=== PATIENT | male | born 1960 | race Caucasian/White ===

== ENCOUNTER 2018-12-26 08:56 | Day surgery (SDC) | payer MEDICAID, SELFPAY ==
[2018-12-26 09:09] VITALS: BP 125/90; PULSE 85; RESP 16; TEMP 35.7; O2SAT 96
[2018-12-26] MEDS: Bupivacaine 0.25% Pres-Free 30 ML VIAL ×2 (09:37→11:12)
[2018-12-26] MEDS: Bupivacaine 0.25% Pres-Free 10 ML VIAL (09:37)
[2018-12-26] MEDS: Lactated Ringers 1,000 ML 80 ML IV (09:43)
--- NOTE | 2018-12-26 11:14 | W.PM.OP ---
Date of service: 12/26/18 Time of Service: 11:14 Operative Note DATE OF PROCEDURE: 12/26/18 PRE-OP DIAGNOSIS: umbilical hernia POST-OP DIAGNOSIS: same PROCEDURE: open herniorrhaphy w/ mesh SURGEON: Cheryl Mcdaniel ANESTHESIA: GETA ESTIMATED BLOOD LOSS: 2 PATHOLOGY: none sent TOURNIQUET TIME: 0 COMPLICATIONS: None Patient was transported to: PACU Patient's condition: stable Implants: bard mesh hernia patch Indications: pain Findings: see op report Procedure Description: dictated
[2018-12-26 11:21] VITALS: BP 101/69; PULSE 84; RESP 13; TEMP 36.7; O2SAT 95
--- NOTE | 2018-12-26 11:24 | W.PM.DSUDISC ---
Discharge Plan Disposition Patient Disposition: HOME Condition: Good Discharge Details Attending Provider: Cheryl Mcdaniel Primary Care Provider: Brandi Jacob Home Meds and New Rx's Prescriptions: New hydrocodone-acetaminophen 5-325 mg tablet 1 tab PO Q4H PRN PRNQty: 15 RF: 0 ibuprofen 800 mg tablet 800 mg PO TID PRN (Reason: pain) Qty: 60 RF: 0 Continued omeprazole 10 mg capsule,delayed release(DR/EC) 10 mg PO DAILY RF: 0 lisinopril 20 mg tablet 20 mg PO DAILY RF: 0 zolpidem 6.25 MG tablet,ext release multiphase 6.25 mg PO PRN RF: 0 tamsulosin 0.4 MG capsule 0.4 mg PO DAILY RF: 0 Discontinued ibuprofen 200 mg tablet 200 mg PO QID PRNRF: 0 acetaminophen 500 mg tablet 500 mg PO Q6H PRNRF: 0 Discharge Instructions Additional Instructions: Dr. Mcdaniel HERNIA REPAIR ? POSTOPERATIVE INSTRUCTIONS ? The MESH surgery for hernia repair allows the patient to return to normal activities at an early date. Patients who have this type of surgery can usually be expected to return to work within two weeks and have minimal amounts of discomfort. ? ACTIVITY: The day of surgery should be spent resting. However, you can be up for short periods of time, I.E., going to the bathroom or kitchen. Avoid lifting or straining. On the day following surgery, you can be up and about as desired. ? LIFTING: Restrict your lifting to no more than five (5) pounds for the first week following surgery. ? DIET: There are no dietary restrictions following surgery. However, you may want to start with small amounts of liquids to avoid nausea the day of surgery. ? INCISION CARE: A dressing covers your incision. You will notice strips of tape covering the wound ? DO NOT REMOVE THESE STRIPS - they help the wound to heal. After 24 hours you may shower and apply a clean dressing over the strips of tape. The dressing may be replaced as necessary. An ice bag may be applied to the incision for 72 hours following surgery. ? SIGNS OF INFECTION: It is not unusual to have some black and blue discoloration of the skin around the incision. It will slowly disappear. If you have any increased redness, drainage, fever (above 100 degrees), please contact your doctor for an examination. ? DISCOMFORT: You may expect to have some mild discomfort at the incision sight. If severe pain develops you should contact your doctor for further instructions. ? URINATION: Patients who have surgery occasionally have problems urinating. If you experience problems and are not able to urinate within 6 hours following your surgery, please call your doctor immediately or go to your nearest Emergency Room for evaluation. ? DRIVING: NO driving for five (5) days after surgery ? MEDICATIONS: You have been given a prescription for pain. If you are taking pain medication, follow the instructions on the label and do not drive. Some patients have conditions that require antibiotics, please follow the instructions on the label and take all of the antibiotics. Pain medications can make you very constipated. Make sure you are moving your bowels daily. If not, take Miralax, milk of magnesia or magnesium citrate. ? REPORT: Unusual swelling, severe pain, unresolved nausea, signs of infection, or difficulty in urination to your surgeon. Follow up in clinic with Dr. Mcdaniel in 1-2 weeks. Stand Alone Forms: DSU Post op Fletcher, Humberto Pascal (DSU) Activity:: no lifting over 5-10 #'s x2-3 wks Remove Dressings/Wound Care:: 24 hours Shower/Bathe:: 24 hours Diet:: take MOM in am and prn if no BM daily DS: Diagnosis Discharge Diagnosis (1) Umbilical hernia without obstruction or gangrene: Start date: 12/26/18 Start time: 11:25 Status: Acute
[2018-12-26 11:26] VITALS: BP 93/74; PULSE 83; RESP 14; TEMP 36.7; O2SAT 96
[2018-12-26 11:31] VITALS: BP 114/82; PULSE 87; RESP 14; TEMP 36.7; O2SAT 98
--- NOTE | 2018-12-26 11:34 | PDOC.DSDIS_ITS ---
Discharge Plan Disposition Patient Disposition: HOME Condition: Good Discharge Details Attending Provider: Cheryl Mcdaniel Primary Care Provider: Brandi Jacob Home Meds and New Rx's Prescriptions: New ibuprofen 800 mg tablet 800 mg PO TID PRN (Reason: pain) Qty: 60 RF: 0 hydrocodone-acetaminophen [[place]] 5-325 mg tablet 1 tab PO Q4H PRN (Reason: pain) Qty: 14 RF: 0 Continued omeprazole 10 mg capsule,delayed release(DR/EC) 10 mg PO DAILY RF: 0 lisinopril 20 mg tablet 20 mg PO DAILY RF: 0 zolpidem 6.25 MG tablet,ext release multiphase 6.25 mg PO PRN RF: 0 tamsulosin 0.4 MG capsule 0.4 mg PO DAILY RF: 0 Discontinued ibuprofen 200 mg tablet 200 mg PO QID PRNRF: 0 acetaminophen 500 mg tablet 500 mg PO Q6H PRNRF: 0 Discharge Instructions Additional Instructions: Dr. Mcdaniel HERNIA REPAIR ? POSTOPERATIVE INSTRUCTIONS ? The MESH surgery for hernia repair allows the patient to return to normal activities at an early date. Patients who have this type of surgery can usually be expected to return to work within two weeks and have minimal amounts of discomfort. ? ACTIVITY: The day of surgery should be spent resting. However, you can be up for short periods of time, I.E., going to the bathroom or kitchen. Avoid lifting or straining. On the day following surgery, you can be up and about as desired. ? LIFTING: Restrict your lifting to no more than five (5) pounds for the first week following surgery. ? DIET: There are no dietary restrictions following surgery. However, you may want to start with small amounts of liquids to avoid nausea the day of surgery. ? INCISION CARE: A dressing covers your incision. You will notice strips of tape covering the wound ? DO NOT REMOVE THESE STRIPS - they help the wound to heal. After 24 hours you may shower and apply a clean dressing over the strips of tape. The dressing may be replaced as necessary. An ice bag may be applied to the incision for 72 hours following surgery. ? SIGNS OF INFECTION: It is not unusual to have some black and blue discoloration of the skin around the incision. It will slowly disappear. If you have any increased redness, drainage, fever (above 100 degrees), please contact your doctor for an examination. ? DISCOMFORT: You may expect to have some mild discomfort at the incision sight. If severe pain develops you should contact your doctor for further instructions. ? URINATION: Patients who have surgery occasionally have problems urinating. If you experience problems and are not able to urinate within 6 hours following your surgery, please call your doctor immediately or go to your nearest Emergency Room for evaluation. ? DRIVING: NO driving for five (5) days after surgery ? MEDICATIONS: You have been given a prescription for pain. If you are taking pain medication, follow the instructions on the label and do not drive. Some patients have conditions that require antibiotics, please follow the instructions on the label and take all of the antibiotics. Pain medications can make you very constipated. Make sure you are moving your bowels daily. If not, take Miralax, milk of magnesia or magnesium citrate. ? REPORT: Unusual swelling, severe pain, unresolved nausea, signs of infection, or difficulty in urination to your surgeon. Follow up in clinic with Dr. Mcdaniel in 1-2 weeks. Stand Alone Forms: DSU Post op Fletcher, Humberto Pascal (DSU) Activity:: no lifting over 5-10 #'s x2-3 wks Remove Dressings/Wound Care:: 24 hours Shower/Bathe:: 24 hours Diet:: take MOM in am and prn if no BM daily DS: Diagnosis Discharge Diagnosis (1) Umbilical hernia without obstruction or gangrene: Status: Acute
[2018-12-26] MEDS: HYDROcodone 5/Acetaminophen 325 TAB PO (12:08)
[2018-12-26 12:25] VITALS: BP 122/75; PULSE 84; RESP 18; TEMP 35.7; O2SAT 97
--- NOTE | 2018-12-26 18:24 | ROE_ITS ---
DATE OF PROCEDURE: December 26, 2018 PREOPERATIVE DIAGNOSIS: Umbilical hernia. POSTOPERATIVE DIAGNOSIS: Umbilical hernia. PROCEDURE: Umbilical herniorrhaphy with mesh. SURGEON: Cheryl Mcdaniel D.O. GALVANOMETER ASSEMBLER: Cheryl Haynes PA-C ANESTHESIA: General. ESTIMATED BLOOD LOSS: <10 cc SPECIMEN: No specimens sent for Pathology. COMPLICATIONS: The patient tolerated the procedure well without complication. INDICATIONS: Mr. Doyle is a 58-year-old male seen at the request of his PCP and is here today for umbilical hernia repair. He has failed outpatient conservative medical management. Informed consent was obtained, explaining the risks and benefits of the procedure including, but not limited to, bleeding, infection, pneumonia, blood clots, chronic pain and chronic numbness, reoccurrence, reaction to the mesh necessitating removal, damage to bowel or blood vessels, complications from the anesthesia, and other unforetold complications. The patient was marked in Preop. PROCEDURE: The patient was brought to the operative room suite and placed in supine position. Anesthesia was administered per the Department of Anesthesia. He did receive preoperative antibiotics. Bilateral TAP blocks were done by Anesthesia. The area was prepped and draped in the usual sterile fashion using a ChloraPrep scrub solution. A time-out was done. Ten cc's of 0.25% Marcaine were infused for local anesthetization at the surgical site. A #12 blade was used to make a 2-inch incision below the umbilicus. Electrocautery was used to provide hemostasis and dissect down through the fatty tissues to the umbilicus. The umbilical skin was the dissected off of the hernia sac using sharp dissection. [employer] were used to provide visualization. The fascial edges were freed up. A finger was placed and swept into the abdomen. There was a small area of omentum that contained an umbilical sac. This was excised and was not sent for pathology. A Bard mesh patch, 6.4 cm, was placed in the defect. This was oversewn with five stitches of #2-0 Prolene. This did incorporate the mesh. The wound was then copiously irrigated. The deep tissue was approximated with #2-0 Vicryl and the skin was closed with #4-0 Monocryl running in subcuticular fashion. Steri-Strips and sterile dressings were applied. The patient tolerated the procedure well without complications. He was given instructions in wound care, activity, and warning signs. He was sent home with a prescription for ibuprofen and for [place], #14. He will follow up in the office in one to two weeks. If he has any questions or concerned he can contact the office. Thank you for allowing me to participate in the care of this patient. cc: Brandi Jacob N.P.
== END 2018-12-26 12:45 | disposition home or self-care (01) ==
PROVIDERS: PCP Nurse Practitioner Family; Visit Provider Surgery
PROC: (CPT 49585; principal; 2018-12-26 10:30)
DX: K42.9 Umbilical hernia without obstruction or gangrene (principal); K21.9 Gastro-esophageal reflux disease without esophagitis; I10 Essential (primary) hypertension
CPT/HCPCS: 49585 ×2; 76942; C1781; J0690; J1100; J1885; J2250; J2405

== ENCOUNTER 2019-07-28 09:34 | Outpatient (REF) | payer MEDICAID, SELFPAY ==
[2019-07-28 12:26] LABS: Albumin 3.7 g/dL (3.4-5.0); Alkaline Phosphatase 96 U/L (46-116); BUN 13 mg/dL (7-18); Bilirubin, Total 0.4 mg/dL (0.2-1.0); CO2 22.7 mmol/L (21.0-32.0); CREATININE 0.91 mg/dL (0.70-1.30); Calcium 9.1 mg/dL (8.5-10.1); Chloride 102 mmol/L (98-107); Glucose 116 mg/dL (70-100); Potassium 3.7 mmol/L (3.5-5.1); Sodium 139 mmol/L (136-145); Total Protein 6.8 g/dL (6.4-8.2)
[2019-07-28 12:27] LABS: ALT 23 U/L (16-63); AST 21 U/L (15-37); Anion Gap 14.3 mmol/L (3-11)
== END 2019-07-28 09:54 ==
LOC: NCHCN 09:34
PROVIDERS: PCP Nurse Practitioner Family; Visit Provider Nurse Practitioner Family
DX: I10 Essential (primary) hypertension (principal)
CPT/HCPCS: 80053

== ENCOUNTER 2019-08-17 13:49 | Emergency (ER) | payer MEDICAID, SELFPAY ==
[2019-08-17] VITALS (14 sets, daily range): BP systolic 140–172; BP diastolic 93–120; PULSE 74–119; RESP 16–18; TEMP 36.8; O2SAT 93–98
--- NOTE | 2019-08-17 14:29 | DI.RAD_ITS ---
EXAM: XR RIBS LT W PA LAT CHEST INDICATION: trauma, left rib pain. COMPARISON: RIGHT RIBS PA CXR-3 VIEWS from 12/12/2012 TECHNIQUE: 2D digital imaging was performed. FINDINGS: Heart size is normal. The aorta is tortuous. There are old right rib fractures. Two views of the left ribs were performed. No acute fracture is seen. The lungs appear clear. There is no of pneumo thorax. IMPRESSION: No acute abnormality.
[2019-08-17 14:44] LABS: Abs Immature Grans 0.04 k/cumm (0.0-0.09); Absolute Basophil Count 0.04 k/cumm (0.0-0.2); Absolute Eosinophil Count 0.08 k/cumm (0.0-0.7); Absolute Monocyte Count 0.84 k/cumm (0.11-0.7); Absolute Neutrophil Count 7.02 k/cumm (1.2-6.7); Basophils % 0.4; Eosinophils % 0.9; HCT 41.7 % (40.0-50.0); HGB 14.1 g/dL (13.5-17.5); Immature Grans % 0.4; Lymphocytes % 13.9; Mean Corp. HGB Concentration 33.8 g/dL (32.0-36.0); Mean Corpuscular Hemoglobin 33.4 pg (27.0-33.0); Mean Corpuscular Volume 98.8 fL (80-95); Mean Platelet Volume 8.1 fL (8.0-11.0); Neutrophils % 75.4; Platelet Count 332 x1000/uL (130-400); RBC 4.22 m/cumm (4.50-6.00); RBC Distribution Width 12.2 % (11.8-14.1); White Blood Cell Count 9.32 k/cumm (4.4-10.8)
--- NOTE | 2019-08-17 14:45 | ED.GENADUL_ITS ---
Discharge Plan Disposition Patient Disposition: HOME Discharge Details Chief Complaint: Chest/Rib Clinical Impression: Dental infection, Closed rib fracture, Lytic lesion of bone on x-ray Primary Care Provider: Brandi Jacob ED Provider: Kyle Watt Home Meds and New Rx's Prescriptions: New amoxicillin-pot clavulanate [Augmentin] 875-125 mg tablet 1 tab PO BID Qty: 19 RF: 0 oxycodone 5 mg capsule 5 mg PO BID PRN (Reason: severe pain) Qty: 5 RF: 0 Continued omeprazole 10 mg capsule,delayed release(DR/EC) 10 mg PO DAILY RF: 0 lisinopril 20 mg tablet 20 mg PO DAILY RF: 0 zolpidem 6.25 MG tablet,ext release multiphase 6.25 mg PO PRN RF: 0 tamsulosin 0.4 MG capsule 0.4 mg PO DAILY RF: 0 acetaminophen [Tylenol Extra Strength] 500 mg Tablet 1,000 mg PO QID RF: 0 ibuprofen 800 mg tablet 800 mg PO TID PRN (Reason: pain) Qty: 60 RF: 0 Discharge Instructions Instructions: Rib Fracture (ED) Additional Instructions: You have a dental infection. Please take antibiotics as prescribed. Please contact your primary care physician to arrange follow-up. Be sure to discuss lytic lesion noted on CT. An official interpretation of your CT is pending. Patient would not discuss this with your doctor. Call tomorrow to arrange timely follow-up. Please contact your dentist tomorrow to arrange timely follow-up. You likely will need tooth extraction. Please take ibuprofen over the counter. Take 600 - 800mg by mouth every 6-8 hours as needed for pain. Please take acetaminophen (tylenol) - 650mg every 6 hours by mouth as needed for pain. Take oxycodone as prescribed only for severe pain. Do not take this medication for mild or moderate pain. Use [id number] lidocaine patch for your rib fracture. Dose according to label. Return to the ER for any worsening or new concerning symptoms. Referrals: Brandi Jacob [Primary Care Provider] - Discharge Data Discharge Date/Time-TO BE ENTERED AT DEPARTURE: 08/17/19 19:45 Medical Decision Making <Kyle Watt MD - Last Filed: 08/23/19 15:22> 16:00 -- Care signed out by Dr. Regina Watt with plan to follow-up CT of the abdomen pelvis to assess for acute traumatic injury and CT of the face to assess for deeper space infection of anterior maxilla. Labs reviewed: Patient does have mild anion gap of 13.4. He is receiving IV fluid bolus. CT of the abdomen pelvis was interpreted by radiology: Left 11th rib fracture acute. Right inguinal fat-containing hernia. CT of the face was interpreted by radiology: 9 mm lytic lesion in the right paracentral anterior maxilla. There is cortical breakthrough. Infection or malignancy is not excluded. The former diagnosis is more likely. There is also note of sclerotic lesion measuring up to 7 mm in frontal bone. Given patient's recent history of intermittent inflammation of his anterior upper mouth and gumline over the past few weeks and much worse over the past 2 days and now radiating up to his nose, I am concerned about acute infectious process. I will treat with Unasyn 3 g. I have called [facility] and requested consultation with [facility]. Awaiting call back. Images were sent for review. 19:08 -- I spoke with Dr. Francisco, I discussed ED presentation and course, he reviewed CT and recommends oral antibiotic trial and outpatient follow-up with local dentist. Disposition decision was made weighing the risks and benefits of hospitalization versus outpatient treatment, the risk for further decompensation, and the patient's wishes. The patient was stable and requested discharge. Prior to discharge, my usual and customary return precautions were reviewed with the patient - this included follow-up instructions and reason to return to the emergency department if condition worsens, does not improve as expected, or other new concerns arise. <Regina Watt MD - Last Filed: 08/24/19 15:53> Eduardo Doyle is a 59-year-old man with a history of hypertension who presented to the emergency department with left flank pain/left lower rib pain after traumatic injury, also with swelling and pain under his upper lip. On exam patient is well and nontoxic-appearing. Benign cardiopulmonary exam. Benign abdominal exam. Left lower lateral rib and left flank tenderness with mild ecchymosis over the left flank, also with edema at the central upper alveolar ridge. Concern for facial infection of unknown extension, also concern for traumatic injury to the abdomen/retroperitoneal space, possible rib fractures.. Plan for screening labs, CT face, CT abdomen/pelvis, CXR. Exam/history is not consistent with acute emergent life-threatening injury of the thoracic vasculature, significant injury to the thoracic spine, PE, sepsis, impending airway compromise. Labs reviewed, nondiagnostic. Chest x-ray negative. Patient signed out to Dr. Watt at time of shift change with CT face, CT abdomen pelvis pending. Medical Records Medical records reviewed: Yes I reviewed the patient's medical records. Imaging Data Radiologic Study: Attestation: I personally reviewed and interpreted this imaging study as follows: Radiologist's impression: EXAM: XR RIBS LT W PA LAT CHEST INDICATION: trauma, left rib pain. COMPARISON: RIGHT RIBS PA CXR-3 VIEWS from 12/12/2012 TECHNIQUE: 2D digital imaging was performed. FINDINGS: Heart size is normal. The aorta is tortuous. There are old right rib fractures. Two views of the left ribs were performed. No acute fracture is seen. The lungs appear clear. There is no of pneumothorax. IMPRESSION: No acute abnormality. Lab Data Lab results reviewed: Yes I reviewed the patient's lab results. Labs: Laboratory Tests Range/Units 08/17/19 08/17/19 14:32 14:32 WBC (4.4-10.8) k/cumm 9.32 RBC (4.50-6.00) m/cumm 4.22 L Hgb (13.5-17.5) g/dL 14.1 Hct (40.0-50.0) % 41.7 MCV (80-95) fL 98.8 H MCH (27.0-33.0) pg 33.4 H MCHC (32.0-36.0) g/dL 33.8 RDW (11.8-14.1) % 12.2 Plt Count (130-400) x1000/uL 332 MPV (8.0-11.0) fL 8.1 Immature Gran % 0.4 Neutrophils % 75.4 Lymphocytes % 13.9 Monocytes % 9.0 Eosinophils % 0.9 Basophils % 0.4 Absolute Neutrophils (1.2-6.7) k/cumm 7.02 H Absolute Lymphocytes (1.2-3.4) k/cumm 1.30 Absolute Monocytes (0.11-0.7) k/cumm 0.84 H Absolute Eosinophils (0.0-0.7) k/cumm 0.08 Absolute Basophils (0.0-0.2) k/cumm 0.04 Sodium (136-145) mmol/L 138 Potassium (3.5-5.1) mmol/L 3.9 Chloride (98-107) mmol/L 102 Carbon Dioxide (21.0-32.0) mmol/L 22.6 Anion Gap (3-11) mmol/L 13.4 H BUN (7-18) mg/dL 10 Creatinine (0.70-1.30) mg/dL 0.79 Estimated GFR/1.73 m2 (mL/min/1.73m2) >= 60.00 Glucose (70-100) mg/dL 97 Calcium (8.5-10.1) mg/dL 9.2 Total Bilirubin (0.2-1.0) mg/dL 0.5 AST (15-37) U/L 33 ALT (16-63) U/L 39 Alkaline Phosphatase (46-116) U/L 112 Total Protein (6.4-8.2) g/dL 7.6 Albumin (3.4-5.0) g/dL 3.7 HPI <Kyle Watt MD - Last Filed: 08/23/19 15:22> General Date/Time Provider Initiated Documentation: 08/17/19 14:04 . Related Data Home Medications Medication Instructions Recorded Confirmed tamsulosin 0.4 mg PO DAILY 12/12/12 08/17/19 zolpidem 6.25 mg PO PRN 12/07/15 08/17/19 lisinopril 20 mg tablet 20 mg PO DAILY 12/18/18 08/17/19 omeprazole 10 mg capsule,delayed 10 mg PO DAILY 12/18/18 08/17/19 release ibuprofen 800 mg PO TID PRN #60 tab 12/26/18 08/17/19 acetaminophen [Tylenol Extra 1,000 mg PO QID 08/17/19 08/17/19 Strength] amoxicillin-pot clavulanate 1 tab PO BID #19 tab 08/17/19 [Augmentin] oxycodone 5 mg PO BID PRN #5 cap 08/17/19 Previous Rx's Medication Instructions Recorded ibuprofen 800 mg PO TID PRN #60 tab 12/26/18 amoxicillin-pot clavulanate 1 tab PO BID #19 tab 08/17/19 [Augmentin] oxycodone 5 mg PO BID PRN #5 cap 08/17/19 Allergies Allergy/AdvReac Type Severity Reaction Status Date / Time No Known Allergies Allergy Verified 08/17/19 13:56 <Regina Watt MD - Last Filed: 08/24/19 15:53> General Mode of arrival: ambulatory . Limitations to Documentation: no limitations . Information obtained by: patient, RN notes reviewed and old records reviewed . HPI Narrative: Eduardo Doyle is a 59-year-old man with history of hypertension, arthritis presenting to the emergency department with mouth/facial pain and left-sided rib/flank pain. Patient reports that 3 days ago he slipped on wet porch stairs, fell onto the stairs landing on his left side. He did not hit his head, did not lose consciousness. Patient reports he has had pain in his left ribs and left flank since the fall, and has developed some bruising over his left flank. He denies any other injuries or pain from the fall. Patient also reports that he typically wears a bridge across upper front teeth, but the bridge has not been fitting properly and he has been gluing the bridge in place himself. Patient reports that he has had irritation and pain under his upper lip, with pain now progressing into his central face and under his nose. He has had no sores in his mouth. He denies difficulty swallowing or swelling in his mouth. Patient denies any other pain, fevers, cough, vomiting, diarrhea, numbness, weakness. Patient reports that he feels somewhat short of breath secondary to pain in his left lower lateral rib/flank when he takes a deep christos th. Has been eating and drinking as usual. General Stated Complaint: Chest/Rib ALESSANDRO: 3 <Regina Watt MD - Last Filed: 08/24/19 15:53> Narrative: Constitutional: denies fevers Eyes: denies eye pain ENT: denies sore throat, reports mouth pain Cardiovascular: denies edema, reports left lower lateral rib pain (denies other chest pain) Respiratory: denies SOB, cough GI: denies abdominal pain, vomiting, diarrhea : Reports flank pain MSK: denies back pain, neck pain, arthralgias, myalgias Skin: denies rash Neuro: denies headaches, numbness, weakness PFSH <Kyel Watt MD - Last Filed: 08/23/19 15:22> Medical History Benign prostatic hypertrophy without urinary obstruction 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) Diverticulosis (Chronic) GERD (gastroesophageal reflux disease) (Chronic) Hernia, umbilical (Resolved) repaired 12/26/18, Dr Cheryl Mcdaniel, [facility] Herpes labialis (Chronic) cold sores HTN (hypertension) (Chronic) Right shoulder pain (Chronic) Umbilical hernia without obstruction or gangrene (Acute) Surgical History Ankle surgery Arthroplasty of knee Right knee Rotator Cuff Repair Social History Smoking/Tobacco Use Status: Former Tobacco Use Alcohol Intake: former Drug use: Never Details: no alcohol or tobacco for 20 years Do you feel safe at home: Yes Do you feel safe in your relationship?: Yes <Regina Watt MD - Last Filed: 08/24/19 15:53> Narrative Exam Narrative: Constitutional: well and [id number], pleasant, conversing normally HENT: head atraumatic/normocephalic/normal inspection, mucous membranes moist, edema of the central upper alveolar ridge without discharge or induration, poor dentition, no other intraoral lesion, tenderness of the central maxilla without overlying skin changes of the upper lip or nose Eyes: conjunctiva normal, sclera normal, pupils 3mm b/l Neck: no stridor, normal ROM, trachea midline Chest: normal inspection anteriorly, tenderness palpation over left lower lateral ribs without crepitus or deformity Resp: normal work of breathing, LCTAB Cardio: normal rate, normal rhythm, no murmur appreciated GI: abdomen soft, non-tender, non-distended, mild ecchymosis over left flank, mild CVA tenderness palpation on the left Back: normal inspection, no rash Skin: warm, dry, normal color, no rash Neuro: alert, not altered, grossly non-focal, normal tone Ext: no edema, moving all extremities equally Psych: normal mood, normal affect, normal behavior <Regina Watt MD - Last Filed: 08/24/19 15:53> Vital Signs Vital signs: Vital Signs Temperature 36.8 C 08/17/19 13:51 Pulse 112 H 08/17/19 13:51 Respiratory Rate 16 08/17/19 13:51 Blood Pressure 140/93 H 08/17/19 13:51 Pulse Oximetry 97 08/17/19 13:51 Temperature 36.8 C 08/17/19 13:51 Temperature Source Skin 08/17/19 13:51 Pulse 112 H 08/17/19 13:51 Respiratory Rate 16 08/17/19 13:51 Respiratory Effort 08/17/19 13:59 Respiratory Depth Normal 08/17/19 13:59 Respiratory Pattern Normal 08/17/19 13:59 Blood Pressure 140/93 H 08/17/19 13:51 Blood Pressure Position Sitting 08/17/19 13:51 Pulse Oximetry 97 08/17/19 13:51 Oxygen Delivery Method Room Air 08/17/19 13:51 Oxygen Flow Rate 0 08/17/19 13:51 Pain Level 10 08/17/19 13:51 Comment 08/17/19 13:51 Sign Out <Kyle Watt MD - Last Filed: 08/23/19 15:22> Sign Out Data: Sign Out Comment: Patient signed out to Dr. Watt at time of shift change with imaging, reassessment pending Last updated by Regina Watt MD at 08/17/19 16:02
[2019-08-17 15:01] LABS: ALT 39 U/L (16-63); AST 33 U/L (15-37); Albumin 3.7 g/dL (3.4-5.0); Alkaline Phosphatase 112 U/L (46-116); Anion Gap 13.4 mmol/L (3-11); BUN 10 mg/dL (7-18); Bilirubin, Total 0.5 mg/dL (0.2-1.0); CO2 22.6 mmol/L (21.0-32.0); CREATININE 0.79 mg/dL (0.70-1.30); Calcium 9.2 mg/dL (8.5-10.1); Chloride 102 mmol/L (98-107); Glucose 97 mg/dL (70-100); Potassium 3.9 mmol/L (3.5-5.1); Sodium 138 mmol/L (136-145); Total Protein 7.6 g/dL (6.4-8.2)
[2019-08-17] MEDS: Normal Saline 1,000 ML 1000 ML IV (15:41)
--- NOTE | 2019-08-17 16:33 | DI.CT_ITS ---
EXAM: CT FACIAL W CLINICAL HISTORY: maxillary infection TECHNIQUE: There is residual IV contrast related to CT abdomen and pelvis. COMPARISON: No exams were available for comparison FINDINGS: No fracture is identified. There is a lucency in the right anterior maxilla around the canine tooth which may represent a small periapical abscess. The sinuses appear clear. The orbits are unremarkable . There are a few smoothly marginated sclerotic areas in the bones likely representing bone islands. The mastoid air cells appear clear. IMPRESSION: Periapical lucency around the right maxillary canine tooth. No acute fracture.
--- NOTE | 2019-08-17 16:33 | DI.CT_ITS ---
EXAM: CT ABDOMEN PELVIS W CLINICAL HISTORY: trauma, left flank pain TECHNIQUE: 100 cc Omnipaque 350 IV. COMPARISON: No exams were available for comparison FINDINGS: There is an acute fracture of the lateral left 11th rib. There is no evidence of pneumothorax, splen ic or renal injury. There are old right rib fractures. Liver shows mild fatty infiltration. The ga llbladder, pancreas, adrenals and bowel are unremarkable. There is symmetric perfusion and excretion by both kidneys. The bladder is unremarkable. There is a fatty containing right inguinal hernia wh ich also shows a small amount of fluid. No spine or pelvic fractures are seen. IMPRESSION: Left 11th rib fracture. No additional acute abnormalities are identified.
[2019-08-17] MEDS: Omnipaque 350 MG/ML 100 ML BTL IJ (16:34)
[2019-08-17] MEDS: Omnipaque 350 MG/ML 50 ML BTL IJ (16:35)
--- NOTE | 2019-08-17 16:53 | DI.VRAD_ITS ---
PROCEDURE INFORMATION: Exam: CT Abdomen And Pelvis With Contrast Exam date and time: 08/17/2019 4:34 PM Clinical history: 59 years old, male; Abdominal pain; Patient HX: Trauma, left flank pain TECHNIQUE: Imaging protocol: Computed tomography of the abdomen and pelvis with intravenous contrast. COMPARISON: No relevant prior studies available. FINDINGS: Liver: Normal. No mass. Gallbladder and bile ducts: Normal. No calcified stones. No ductal dilation. Pancreas: Normal. No ductal dilation. Spleen: Normal. No splenomegaly. Adrenals: Normal. No mass. Kidneys and ureters: Normal. No hydronephrosis. Stomach and bowel: Unremarkable. No obstruction. No mucosal thickening. Appendix: No evidence of appendicitis. Intraperitoneal space: Unremarkable. No free air. No significant fluid collection. Vasculature: Atherosclerosis. Lymph nodes: Unremarkable. No enlarged lymph nodes. Bladder: Unremarkable as visualized. Reproductive: Unremarkable as visualized. Bones/joints: Left 11th rib fracture, acute. Old right rib fractures. Degenerative changes in the spine. Soft tissues: Right inguinal hernia containing fat and fluid. IMPRESSION: Left 11th rib fracture, acute. Dictated and Authenticated by: Dixie Crump MD. Ordering:SANGITA Tapia MD
--- NOTE | 2019-08-17 16:55 | DI.VRAD_ITS ---
Addendum created by Dixie Crump MD on 08/17/2019 6:11:19 PM EST 9 mm lytic lesion in the right paracentral anterior maxilla. There is cortical breakthrough. Infection or malignancy is not excluded. The former diagnosis is more likely. Initial report created on 08/17/2019 4:55:01 PM EST PROCEDURE INFORMATION: Exam: CT Maxillofacial With Contrast Exam date and time: 08/17/2019 4:28 PM Clinical history: 59 years old, male; Condition or disease; Other: Maxillary infection TECHNIQUE: Imaging protocol: Computed tomography images of the face with intravenous contrast. COMPARISON: No relevant prior studies available. FINDINGS: Orbits: Orbits are normal. Globes are unremarkable. Sinuses: Normal. No air-fluid levels. Bones/joints: Sclerotic lesions in the bones measuring up to 7 mm. Example is seen on image 2/297. Soft tissues: Unremarkable. IMPRESSION: Sclerotic lesions in the bones measuring up to 7 mm. Example is seen on image 2/297. This could represent bone islands although sclerotic metastatic disease is not excluded. Dictated and Authenticated by: Dixie Crump MD. Ordering:SANGITA Tapia MD
[2019-08-17] MEDS: AMPICILLIN/SULBACTAM 3 GM in Normal Saline 100 ML IVPB (18:23)
[2019-08-17] MEDS: Lidocaine 5% Patch 1 PATCH TP (18:33)
[2019-08-17] MEDS: HYDROmorphone 2 MG/ML VIAL 1 MG IVP (18:34)
== END 2019-08-17 19:45 | disposition home or self-care (01) ==
PROVIDERS: Student in an Organized Health Care Education/Training Program; Emergency Provider Student in an Organized Health Care Education/Training Program; PCP Nurse Practitioner Family
DX: S22.32XA Fracture of one rib, left side, initial encounter for closed fracture (principal); K04.7 Periapical abscess without sinus; R91.8 Other nonspecific abnormal finding of lung field; W10.8XXA Fall (on) (from) other stairs and steps, initial encounter; I10 Essential (primary) hypertension
CPT/HCPCS: 36415; 80053; 96361; 96365; 99285; 70487; 71046; 71100; 74177; 85025; 99284; J0295; J3490; Q9967

== ENCOUNTER 2019-09-09 13:06 | Outpatient (CLI) | payer MEDICAID, SELFPAY ==
--- NOTE | 2019-09-09 12:15 | DI.RAD_ITS ---
EXAM: XR WRIST RT COMPLETE CLINICAL HISTORY: pain TECHNIQUE: COMPARISON: No exams were available for comparison FINDINGS: Three views were obtained. Carpal alignment appears within normal limits except for question mild wi dening of the navicular lunate joint. Mild degenerative changes noted involving greater multangular 1st metacarpal joint. IMPRESSION:
--- NOTE | 2019-09-09 12:17 | DI.RAD_ITS ---
EXAM: XR SHOULDER RT COMPLETE 2+V CLINICAL HISTORY: pain COMPARISON: No exams were available for comparison FINDINGS: Two views were obtained. Cartilaginous joint space of the glenohumeral joint appears fairly well catrachita ntained. Mild hypertrophic spurring noted involving the glenoid and the greater tuberosity of the hu merus. Probable inferior acromial spur. Question narrowing acromiohumeral distance. Additional kashmir luation with Y-view or MRI may be considered if there is a question of impingement at acromial outlet .
--- NOTE | 2019-09-09 12:21 | DI.RAD_ITS ---
EXAM: XR PELVIS AP CLINICAL HISTORY: pain COMPARISON: No exams were available for comparison FINDINGS: Single AP view of the pelvis was obtained. There is narrowing of the cartilaginous joint space of th e right hip superiorly with moderate marginal osteophyte formation of the femoral head and acetabulum . Slight marginal osteophyte formation noted at the left hip joint with fairly well-preserved cartil aginous joint space. Mild DJD noted involving both SI joints. IMPRESSION: Moderate to severe DJD right hip, mild DJD left hip.
== END 2019-09-09 13:26 ==
PROVIDERS: PCP Nurse Practitioner Family; Visit Provider Orthopaedic Surgery
DX: M25.551 Pain in right hip (principal); M25.552 Pain in left hip; M16.0 Bilateral primary osteoarthritis of hip; M25.511 Pain in right shoulder; M25.531 Pain in right wrist; M18.11 Unilateral primary osteoarthritis of first carpometacarpal joint, right hand
CPT/HCPCS: 72170; 73030; 73110

== ENCOUNTER 2019-10-21 10:09 | Outpatient (CLI) | payer MEDICAID, SELFPAY ==
[2019-10-21 10:27] LABS: HCT 41.7 % (40.0-50.0); HGB 13.9 g/dL (13.5-17.5); Mean Corp. HGB Concentration 33.3 g/dL (32.0-36.0); Mean Corpuscular Hemoglobin 32.7 pg (27.0-33.0); Mean Corpuscular Volume 98.1 fL (80-95); Mean Platelet Volume 8.1 fL (8.0-11.0); Platelet Count 357 x1000/uL (130-400); RBC 4.25 m/cumm (4.50-6.00); RBC Distribution Width 12.5 % (11.8-14.1); White Blood Cell Count 7.06 k/cumm (4.4-10.8)
[2019-10-21 11:15] LABS: ESR 10 mm/hr (1-20)
[2019-10-21 11:25] LABS: C-Reactive Protein 1.01 mg/dL (0.0-0.3)
[2019-10-22 11:14] LABS: Rheumatoid Factor <7.5 IU/mL (<12.5)
[2019-10-22 15:00] LABS: ANA Interpretation Negative (Negative)
== END 2019-10-21 10:29 ==
PROVIDERS: PCP Nurse Practitioner Family; Visit Provider Orthopaedic Surgery
DX: M25.511 Pain in right shoulder (principal); M25.561 Pain in right knee; M25.562 Pain in left knee; M79.641 Pain in right hand; M79.642 Pain in left hand
CPT/HCPCS: 36415; 85027; 85652; 86038; 86140; 86431

== ENCOUNTER 2020-01-01 11:10 | Outpatient (CLI) | payer MEDICAID, SELFPAY ==
[2020-01-05 08:35] LABS: COVID-19 RT-PCR Result Not Detected (NotDetected)
== END 2020-01-01 11:30 ==
PROVIDERS: PCP Nurse Practitioner Family; Visit Provider Nurse Practitioner Family
DX: Z20.828 Contact with and (suspected) exposure to other viral communicable diseases (principal)
CPT/HCPCS: U0003

== ENCOUNTER 2020-01-15 00:13 | Outpatient (CLI) | payer MEDICAID, SELFPAY ==
--- NOTE | 2020-01-15 06:15 | DI.US_ITS ---
EXAM: US CAROTID CLINICAL HISTORY: transient vision loss,H53.129. TECHNIQUE: Ultrasound carotids performed using grayscale, color-flow, and spectral Doppler imaging. COMPARISON: No exams were available for comparison FINDINGS: RIGHT CAROTID ARTERY: Plaque: Minimal. Velocity elevation: None. LEFT CAROTID ARTERY: Plaque: Mild calcific plaque at the left common carotid bulb and proximal left internal carotid arter y. The left mid internal carotid artery is mildly tortuous. Velocity elevation: None. VERTEBRAL ARTERIES: Antegrade flow. Measurements: R Bulb: 59 PS/19 ED R CCA: 98 PS/35 ED R ECA: 108 PS/24 ED R ICA Prox: 81 PS/25 ED R ICA Mid: 60 PS/29 ED R ICA Distal: 52 PS/22 ED R Vert: 41 PS/21 ED R SVR: 0.83 R DVR: 0.71 L Bulb: 61 PS/ 21 ED L CCA: 93 PS/26 ED L ECA: 82 PS/21 ED L ICA Prox:73 PS/19 ED L ICA Mid: 66PS/32 ED L ICA Distal: 74 PS/36 ED L Vert: 45 PS/17 ED L SVR: 0.8 L DVR: 1.34 IMPRESSION: Mild plaque in the left common carotid bulb and left proximal internal carotid artery. No evidence f or hemodynamically significant carotid stenosis. Criteria for Carotid Stenosis: Normal: ICA PSV <125 cm/s no plaque or intimal thickening is visible. <50% stenosis: ICA PSV <125 cm/s and plaque or intimal thickening is visible. 50-69% stenosis: ICA PSV is 125-250 cm/s and plaque is visible. >70% stenosis to near occlusion: ICA PSV >250 cm/s with visible plaque and luminal narrowing. DATA REPOSITORY:
== END 2020-01-15 00:33 ==
PROVIDERS: PCP Nurse Practitioner Family; Visit Provider Nurse Practitioner Adult Health
DX: H53.121 Transient visual loss, right eye (principal); I65.22 Occlusion and stenosis of left carotid artery
CPT/HCPCS: 93880

== ENCOUNTER 2020-02-01 04:01 | Outpatient (CLI) | payer MEDICAID, SELFPAY ==
--- NOTE | 2020-03-10 08:44 | W.CARDEVENT ---
Date of service: 03/10/20 Time of Service: 08:44 Cardiac Event Recorder Cardiac Event Note: This is a 30-day event monitor ordered for the indication of stroke. ?The patient was in sinus rhythm or sinus tachycardia for the majority of the recording. ?There were no episodes of atrial fibrillation ?There were a total of 3 patient triggered events which were associated with sinus tachycardia. ?There were no pauses greater than 3 seconds, no episodes of ventricular tachycardia.
== END 2020-02-01 04:21 ==
PROVIDERS: PCP Nurse Practitioner Family; Visit Provider Nurse Practitioner Adult Health
DX: H34.231 Retinal artery branch occlusion, right eye (principal); I63.9 Cerebral infarction, unspecified
CPT/HCPCS: 93270

== ENCOUNTER 2020-03-02 14:08 | Outpatient (CLI) | payer MEDICAID, SELFPAY ==
[2020-03-02 17:14] LABS: Abs Immature Grans 0.12 k/cumm (0.0-0.09); Absolute Basophil Count 0.01 k/cumm (0.0-0.2); Absolute Eosinophil Count 0.01 k/cumm (0.0-0.7); Absolute Lymphocyte Count 1.18 k/cumm (1.2-3.4); Absolute Monocyte Count 0.49 k/cumm (0.11-0.7); Absolute Neutrophil Count 6.92 k/cumm (1.2-6.7); Basophils % 0.1; Eosinophils % 0.1; HCT 41.6 % (40.0-50.0); Immature Grans % 1.4 %; Lymphocytes % 13.5; Mean Corp. HGB Concentration 33.7 g/dL (32.0-36.0); Mean Corpuscular Hemoglobin 32.9 pg (27.0-33.0); Mean Corpuscular Volume 97.7 fL (80-95); Mean Platelet Volume 8.5 fL (8.0-11.0); Monocytes % 5.6; Neutrophils % 79.3; Platelet Count 346 x1000/uL (130-400); RBC 4.26 m/cumm (4.50-6.00); RBC Distribution Width 12.6 % (11.8-14.1); White Blood Cell Count 8.73 k/cumm (4.4-10.8)
[2020-03-02 18:07] LABS: Iron 79 ug/dL (65-175)
[2020-03-02 18:29] LABS: ALT 28 U/L (16-63); AST 14 U/L (15-37); Alkaline Phosphatase 80 U/L (46-116); Anion Gap 12.1 mmol/L (3-11); BUN 13 mg/dL (7-18); Bilirubin, Total 0.5 mg/dL (0.2-1.0); CO2 22.9 mmol/L (21.0-32.0); Calcium 9.8 mg/dL (8.5-10.1); Chloride 102 mmol/L (98-107); Ferritin 391 ng/mL (26-388); Glucose 101 mg/dL (74-106); Potassium 4.5 mmol/L (3.5-5.1); Sodium 137 mmol/L (136-145); Total Protein 7.3 g/dL (6.4-8.2)
[2020-03-02 18:42] LABS: Uric Acid 7.8 mg/dL (3.5-7.2)
[2020-03-02 19:34] LABS: ESR 6 mm/hr (1-20)
[2020-03-03 21:19] LABS: Rheumatoid Factor <8.6 IU/mL (<12.0)
[2020-03-04 09:41] LABS: Transferrin 247 mg/dL (201-352)
[2020-03-04 09:59] LABS: Cyclic Citrullinated Peptide <2.5 U/mL (<5.0)
[2020-03-04 10:17] LABS: Parathyroid Hormone,Intact 53 pg/mL (19-88)
[2020-03-04 12:04] LABS: ANA Interpretation Negative (Negative)
== END 2020-03-02 14:28 ==
PROVIDERS: PCP Nurse Practitioner Family; Visit Provider Internal Medicine
DX: M25.511 Pain in right shoulder (principal); M25.531 Pain in right wrist; M25.532 Pain in left wrist; M25.561 Pain in right knee; M25.552 Pain in left hip
CPT/HCPCS: 36415; 80053; 85652; 86200; 82728; 83540; 83970; 84466; 84550; 85025; 86038; 86431

== ENCOUNTER 2020-03-15 10:17 | Outpatient (CLI) | payer MEDICAID, SELFPAY ==
[2020-03-15 17:36] LABS: C-Reactive Protein < 0.05 mg/dL (0.0-0.3)
[2020-03-16 09:43] LABS: Lyme Ab w Rflx to Lyme Confirm Negative (Negative)
== END 2020-03-15 10:37 ==
PROVIDERS: PCP Nurse Practitioner Family; Visit Provider Internal Medicine
DX: M25.561 Pain in right knee (principal); M25.511 Pain in right shoulder; M25.551 Pain in right hip; M25.531 Pain in right wrist
CPT/HCPCS: 36415; 86140; 86618

== ENCOUNTER 2020-04-25 01:33 | Outpatient (CLI) | payer MEDICAID, SELFPAY ==
[2020-04-25 13:20] LABS: Abs Immature Grans 0.29 k/cumm (0.0-0.09); Absolute Basophil Count 0.02 k/cumm (0.0-0.2); Absolute Eosinophil Count 0.02 k/cumm (0.0-0.7); Absolute Lymphocyte Count 1.05 k/cumm (1.2-3.4); Absolute Monocyte Count 0.63 k/cumm (0.11-0.7); Absolute Neutrophil Count 8.35 k/cumm (1.2-6.7); Basophils % 0.2; Eosinophils % 0.2; HCT 37.9 % (40.0-50.0); HGB 12.6 g/dL (13.5-17.5); Immature Grans % 2.8 %; Lymphocytes % 10.1; Mean Corp. HGB Concentration 33.2 g/dL (32.0-36.0); Mean Corpuscular Hemoglobin 33.2 pg (27.0-33.0); Mean Corpuscular Volume 99.7 fL (80-95); Mean Platelet Volume 8.2 fL (8.0-11.0); Monocytes % 6.1; Neutrophils % 80.6; Platelet Count 333 x1000/uL (130-400); White Blood Cell Count 10.36 k/cumm (4.4-10.8)
[2020-04-25 14:01] LABS: ESR 9 mm/hr (1-20)
[2020-04-25 14:29] LABS: Iron 153 ug/dL (65-175)
[2020-04-25 14:32] LABS: ALT 24 U/L (16-63); AST 16 U/L (15-37); Albumin 3.5 g/dL (3.4-5.0); Alkaline Phosphatase 65 U/L (46-116); Anion Gap 12.3 mmol/L (3-11); BUN 17 mg/dL (7-18); Bilirubin, Total 0.4 mg/dL (0.2-1.0); CO2 21.7 mmol/L (21.0-32.0); CREATININE 1.04 mg/dL (0.70-1.30); Calcium 8.6 mg/dL (8.5-10.1); Chloride 101 mmol/L (98-107); Glucose 133 mg/dL (74-106); Sodium 135 mmol/L (136-145); Total Protein 6.3 g/dL (6.4-8.2); Uric Acid 8.1 mg/dL (3.5-7.2)
[2020-04-25 14:42] LABS: C-Reactive Protein < 0.05 mg/dL (0.0-0.3)
[2020-04-25 15:05] LABS: Ferritin 525 ng/mL (26-388)
== END 2020-04-25 01:53 ==
PROVIDERS: PCP Nurse Practitioner Family; Visit Provider Internal Medicine
DX: M25.511 Pain in right shoulder (principal); M25.531 Pain in right wrist; M25.551 Pain in right hip; M25.561 Pain in right knee
CPT/HCPCS: 80053; 85652; 82728; 83540; 84550; 85025; 86140

== ENCOUNTER 2020-05-03 00:58 | Outpatient (CLI) | payer MEDICAID, SELFPAY ==
--- NOTE | 2020-05-03 12:30 | DI.US_ITS ---
APPROVED REPORT EXAM: Comprehensive 2D, Doppler, and color-flow Echocardiogram Patient Location: Out-Patient [facility] Technician Instructor: Kesha iNck RDCS (AE) Indications: CVA Other Information Study Quality: Good Conclusion Left Ventricle : The left ventricle is normal size. The left ventricular systolic function is normal. The left ventricular ejection fraction is within the normal range. There is normal left ventricular wall thickness. There is normal LV segmental wall motion. The left ventricular diastolic function is normal. LVEF is 55-60%. Right Ventricle : The right ventricle is normal size. The right ventricular systolic function is norm al. The RVSP is 23 mmHg. Atria : The left atrium size is normal. The right atrium size is normal. The interatrial septum is in tact with no evidence for an atrial septal defect (this was not a bubble study). Valves: There are no hemodynamically significant valvular lesions. Great Vessels : The ascending aorta is normal in size. Aortic arch is normal in caliber. IVC is kirsten l in size and collapses >50% with inspiration. There is no prior study available for comparison. Wall motion Left Ventricle The left ventricle is normal size. The left ventricular systolic function is normal. The left ventric ular ejection fraction is within the normal range. There is normal left ventricular wall thickness. T here is normal LV segmental wall motion. The left ventricular diastolic function is normal. There is no ventricular septal defect visualized. LVEF is 55-60%. Right Ventricle The right ventricle is normal size. The right ventricular systolic function is normal. The RVSP is 23 mmHg. Atria The left atrium size is normal. The right atrium size is normal. The interatrial septum is intact wit h no evidence for an atrial septal defect. Aortic Valve The aortic valve is normal in structure. Aortic valve is trileaflet. There is no aortic valvular sten osis. No aortic regurgitation is present. Mitral Valve The mitral valve is normal in structure. No evidence of mitral valve stenosis. Trace to mild mitral r egurgitation. Tricuspid Valve The tricuspid valve is normal in structure. There is no tricuspid valve stenosis. Trace to mild tricu spid regurgitation. Pulmonic Valve The pulmonary valve is normal in structure. There is no pulmonic valvular stenosis. Trace pulmonic re gurgitation. Great Vessels The aortic root is normal in size. The ascending aorta is normal in size. Aortic arch is normal in ca liber. IVC is normal in size and collapses >50% with inspiration. Pericardium Mild circumferential pericardial effusion. 2D Dimensions IVSD d PLAX 0.95 cm M: 0.6-1.2 LV Vol A2C d MOD 114.0 mL LVPW d PLAX 0.95 cm M: 0.6 - 1.2 LV Vol A4C d MOD 106.6 mL LVID d PLAX 4.34 cm M: 4.2 - 5.8 LA vol/ BSA A2C s A-L 22.3 mL/m2 LVDs 2.95 cm M: 2.5 - 4.0 LA vol/ BSA A4C s A-L 21.1 mL/m2 Ao Root d 3.27 cm M: 3.1 - 3.7 LA Vol/ BSA Biplane s A-L 23.2 mL/m2 RA Area A4C 11.60 cm2 LA Area A4C s MOD 16.14 cm2 RA Vol/ BSA A4C s A-L 13.6 mL/m2 LA Area A2C s MOD 15.48 cm2 Ao Asc Diam d 3.41 cm M: 2.6 - 3.4 LV EF A4C MOD 54.8 % LV EF Teichholz 59.6 % LV EF A2C MOD 53.4 % LVEF (Nguyen's) 52.87 % M: 52 - 72 LV EF Biplane MOD 52.9 % LV Volume 81.91 mL M: 62 - 150 SV 58.91 mL LV Volume Index 38.63 mL/m2 M: 34 - 74 SV Index 27.71 mL/m2 LV Vol Biplane MOD 111.4 mL FS 31.40 % M-Mode TAPSE 2.18 cm (M/F) >1.7 LV Diastology MV E' medial 0.060 (>0.07 m/s) E/A Ratio 0.8 LV E/e MED 10.15 (<14) MV E Vmax 0.61 (0.4-1.3 m/s) MV E' lateral 0.078 (>0.1 m/s) MV A Vmax 0.80 (0.4-1.3 m/s) LV E/e LAT 7.80 (<14) MV E/A Ratio 0.76 MV E/E' medial 10.20 MV E/E' lateral 7.81 Aortic Valve LVOT Area 3.11 cm2 AoV Area Vmax 2.64 cm2 LVOT Vmax 1.10 m/s AoV Area/ BSA (Vmax) 1.24 cm2/m2 LVOT Mean Jadon. 0.71 m/s PARIS Mean Jadon. 2.51 cm2 LVOT Peak Grad 4.9 mmHg PARIS Mean Jadon. Index 1.18 cm2/m2 LVOT Mean Grad 2.3 mmHg LVOT VTI 0.155 m LVOT Diam s 1.95 cm AoV Vmax 1.30 m/s Velocity Ratio 0.84 AoV Mean Jadon. 0.88 m/s AoV Peak Grad 6.8 mmHg LVOT SV 48.40 mL AoV Mean Grad 3.4 mmHg AoV VTI 0.167 m AoV Area VTI 2.90 cm2 AoV Area/ BSA (VTI) 1.36 cm/m2 Mitral Valve MV DT 162 (160-240 msec) MV PHT 47 msec MV Area PHT 4.69 cm2 Pulmonary Valve PV Vmax 1.22 (0.5-1.5 m/s) RVOT Peak Gr. 1.28 mmHg PV Peak Grad 6.0 mmHg RVOT Mean Gr. 0.80 mmHg PV Mean Grad 3.6 mmHg RVOT VTI 0.100 m PV VTI 0.200 m RVOT Vmax 0.57 m/s Tricuspid Valve TR Peak Grad 20.7 mmHg TR Vmax 2.28 m/s RA Pressure 3.00 mmHg RVSP (TR) 23.7 mmHg
== END 2020-05-03 01:18 ==
PROVIDERS: PCP Nurse Practitioner Family; Visit Provider Psychiatry & Neurology Neurology
DX: I63.9 Cerebral infarction, unspecified (principal)
CPT/HCPCS: 93306

== ENCOUNTER 2020-06-13 07:52 | Day surgery (SDC) | payer MEDICAID, SELFPAY ==
[2020-06-13 07:07] VITALS: BP 117/86; PULSE 97; RESP 22; TEMP 36.4; O2SAT 98
--- NOTE | 2020-06-13 07:45 | DI.RAD_ITS ---
EXAM: RF JOINT INJECTION FLUORO GUID CLINICAL HISTORY: right hip injection under c-arm TECHNIQUE: 2D and realtime digital imaging was performed. CONTRAST MATERIAL: Water soluble contrast was administered. COMPARISON: No exams were available for comparison FINDINGS: Fluoroscopy was provided for Dr. Arroyo during the performance of a hip injection. Please refer to the procedure report for complete details. Fluoro time: 2.8 seconds
--- NOTE | 2020-06-13 09:21 | PDOC.DSDIS_ITS ---
Discharge Plan Disposition Patient Disposition: HOME Condition: Good Discharge Details Reason For Visit: OA R HIP INJECTION Attending Provider: Cheko Arroyo Primary Care Provider: Brandi Jacob Home Meds and New Rx's Prescriptions: No Action lisinopril 20 mg tablet 30 mg PO DAILY RF: 0 aspirin 81 mg tablet,delayed release (DR/EC) 81 mg PO DAILY Qty: 1 RF: 0 zolpidem 6.25 MG tablet,ext release multiphase 6.25 mg PO PRN RF: 0 valacyclovir 1 gram tablet 1,000 mg PO BID RF: 0 triamcinolone acetonide 0.1 % cream 1 applic TP BID RF: 0 omeprazole 10 mg capsule,delayed release(DR/EC) 40 mg PO DAILY RF: 0 tamsulosin 0.4 MG capsule 0.4 mg PO DAILY RF: 0 acetaminophen [Tylenol Extra Strength] 500 mg Tablet 1,000 mg PO QID RF: 0 ibuprofen 800 mg tablet 800 mg PO TID PRN (Reason: pain) Qty: 60 RF: 0 Discharge Instructions Additional Instructions: Limit your walking for next 48 hours. After 48 hours, gradually increase your walking. Walk as much as your discomfort allows. Take tylenol or ibuprofen 800 mg for any pain. Follow up with in 4 weeks. Referrals: Cheko Arroyo MD [ [facility] STAFF PHYSICIAN] - (f/u in 4 weeks.) Activity:: Activity as Tolerated Diet:: As Tolerated Discharge Orders Discharge Orders: Discharge Order (Routine); Ordered 06/13/20 Ordered By: Cheko Arroyo
[2020-06-13] MEDS: methylPREDNISolone ACETATE 80 MG/ML VIAL (09:22)
--- NOTE | 2020-06-14 12:36 | W.PM.OP ---
Date of service: 06/13/20 Time of Service: 09:03 Operative Note Operative Note DATE OF PROCEDURE: 06/13/20 PRE-OP DIAGNOSIS: Osteoarthritis right hip POST-OP DIAGNOSIS: same PROCEDURE: C arm guided intra-articular steroid injection right hip SURGEON: Cheko Arroyo ANESTHESIA: local COMPLICATIONS: None Patient was transported to: same day Patient's condition: stable Indications: Is a 60-year-old white male with known osteoarthritis of his right hip. He has only been experiencing symptoms of significance for the last 3 months. Intra-articular steroid injection of his right hip with recommended as a temporizing procedure to alleviate his pain. The hope is to try to delay the need for total hip replacement as long as possible. Risk complications of procedure been explained patient. Procedure Description: Patient was taken the operating room on 06/13/2020 placed supine on the radiolucent table. Hip joint was localized with a helps of a ring forceps and the C-arm image intensifier. Skin was marked. An 18-gauge spinal needle was then placed through the kymberly until it contacted bone. C arm images confirmed that the needle was needle was in the hip joint. I then proceeded to inject into his hip 10 cc of 0.5% Marcaine with epinephrine solution along with 80 mg Depo-Medrol. Spinal needle was removed direct pressure was used to control bleeding from the puncture site. Patient tolerated the procedure well. He was discharged to day surgery unit in good condition. Patient was discharged home from day surgery unit with postinjection instructions. He will rest the next 48 hours and limit his ambulation. After 48 hours he may resume activities as tolerated. He should follow-up with Dr. Arroyo in 1 month.
== END 2020-06-13 09:41 | disposition home or self-care (01) ==
PROVIDERS: PCP Nurse Practitioner Family; Visit Provider Orthopaedic Surgery
PROC: (CPT 20610; principal; 2020-06-13 09:00)
DX: M16.11 Unilateral primary osteoarthritis, right hip (principal); M25.551 Pain in right hip
CPT/HCPCS: 20610; 77002; 76000; J1040

== ENCOUNTER 2020-07-12 10:52 | Outpatient (CLI) | payer MEDICAID, SELFPAY ==
--- NOTE | 2020-07-12 09:30 | DI.RAD_ITS ---
EXAM: XR SHOULDER RT COMPLETE 2+V CLINICAL HISTORY: right shoulder pain TECHNIQUE: 2D digital imaging was performed. COMPARISON: CR XR SHOULDER RT COMPLETE 2+V from 09/09/2019 FINDINGS: There is been prior resection of the distal clavicle. There is spurring at the tip of the acromion a s well as glenoid. Glenohumeral joint space is well maintained. There is also spurring at the great er and lesser tuberosities and subchondral cyst formation. Multiple old right rib fractures are inci dentally noted. IMPRESSION: Postsurgical and degenerative changes.
== END 2020-07-12 11:12 ==
PROVIDERS: PCP Nurse Practitioner Family; Referring Provider Nurse Practitioner Family; Visit Provider Physician Assistant
DX: M25.511 Pain in right shoulder (principal); M19.011 Primary osteoarthritis, right shoulder
CPT/HCPCS: 73030

== ENCOUNTER 2020-07-28 02:40 | Outpatient (CLI) | payer MEDICAID, SELFPAY ==
[2020-07-28 15:55] LABS: Abs Immature Grans 0.24 10^3/uL (0.0-0.06); Absolute Basophil Count 0.03 10^3/uL (0.0-0.2); Absolute Eosinophil Count 0.04 10^3/uL (0.0-0.7); Absolute Lymphocyte Count 1.74 10^3/uL (1.2-3.4); Absolute Monocyte Count 0.65 10^3/uL (0.1-0.8); Absolute Neutrophil Count 7.96 10^3/uL (1.2-6.7); Basophils % 0.3; Eosinophils % 0.4; HGB 12.7 g/dL (13.5-17.5); Immature Grans % 2.3; Lymphocytes % 16.3; MCHC 33.4 % (32.0-36.0); MCV 101.9 fL (80-95); MPV 8.2 fL (8.0-11.0); Monocytes % 6.1; Neutrophils % 74.6; Nucleated RBC 0 %; Platelet Count 276 10^3/uL (130-400); RBC 3.73 10^6/uL (4.36-5.78); RDW 13.2 % (11.8-14.1); RDW-SD 48.8 fL; WBC 10.66 10^3/uL (4.4-10.8)
[2020-07-28 17:15] LABS: ALT 40 U/L (16-63); AST 25 U/L (15-37); Albumin 3.8 g/dL (3.4-5.0); Alkaline Phosphatase 70 U/L (46-116); Anion Gap 13.4 mmol/L (3-11); BUN 20 mg/dL (7-18); Bilirubin, Total 0.4 mg/dL (0.2-1.0); CO2 22.6 mmol/L (21.0-32.0); CREATININE 0.87 mg/dL (0.70-1.30); Calcium 9.4 mg/dL (8.5-10.1); Chloride 101 mmol/L (98-107); Glucose 91 mg/dL (74-106); Potassium 3.6 mmol/L (3.5-5.1); Sodium 137 mmol/L (136-145); Total Protein 6.4 g/dL (6.4-8.2)
== END 2020-07-28 03:00 ==
PROVIDERS: PCP Nurse Practitioner Family; Visit Provider Internal Medicine
DX: M16.11 Unilateral primary osteoarthritis, right hip (principal)
CPT/HCPCS: 36415; 80053; 85025

== ENCOUNTER 2020-08-19 02:55 | Outpatient (CLI) | payer MEDICAID, SELFPAY ==
[2020-08-19 16:22] LABS: Abs Immature Grans 0.22 10^3/uL (0.0-0.06); Absolute Basophil Count 0.06 10^3/uL (0.0-0.2); Absolute Eosinophil Count 0.08 10^3/uL (0.0-0.7); Absolute Lymphocyte Count 1.73 10^3/uL (1.2-3.4); Absolute Monocyte Count 0.63 10^3/uL (0.1-0.8); Absolute Neutrophil Count 7.44 10^3/uL (1.2-6.7); Basophils % 0.6; Eosinophils % 0.8; HCT 40.7 % (40.0-50.0); HGB 13.3 g/dL (13.5-17.5); Immature Grans % 2.2; MCH 33.6 pg (27.0-33.0); MCHC 32.7 % (32.0-36.0); MCV 102.8 fL (80-95); MPV 8.4 fL (8.0-11.0); Monocytes % 6.2; Neutrophils % 73.2; Nucleated RBC 0 %; Platelet Count 383 10^3/uL (130-400); RBC 3.96 10^6/uL (4.36-5.78); RDW 13.3 % (11.8-14.1); RDW-SD 50.2 fL; WBC 10.16 10^3/uL (4.4-10.8)
[2020-08-19 18:40] LABS: ALT 32 U/L (16-63); AST 20 U/L (15-37); Albumin 4.1 g/dL (3.4-5.0); Alkaline Phosphatase 97 U/L (46-116); Anion Gap 12.6 mmol/L (3-11); BUN 20 mg/dL (7-18); Bilirubin, Total 0.4 mg/dL (0.2-1.0); C-Reactive Protein 0.14 mg/dL (0.0-0.3); CO2 23.4 mmol/L (21.0-32.0); CREATININE 0.98 mg/dL (0.70-1.30); Calcium 9.7 mg/dL (8.5-10.1); Chloride 102 mmol/L (98-107); Glucose 95 mg/dL (74-106); Potassium 4.5 mmol/L (3.5-5.1); Sodium 138 mmol/L (136-145); Total Protein 6.9 g/dL (6.4-8.2)
== END 2020-08-19 03:15 ==
PROVIDERS: PCP Nurse Practitioner Family; Visit Provider Internal Medicine Rheumatology
DX: Z79.899 Other long term (current) drug therapy (principal); M06.4 Inflammatory polyarthropathy
CPT/HCPCS: 36415; 80053; 85025; 86140

== ENCOUNTER 2020-09-02 04:33 | Outpatient (CLI) | payer MEDICAID, SELFPAY ==
--- NOTE | 2020-09-02 | DI.US_ITS ---
EXAM: US SCROTUM CLINICAL HISTORY: RT EPIDIDYMITIS, N45.1. TECHNIQUE: Scrotal ultrasound performed using grayscale, color-flow and spectral Doppler analysis. COMPARISON: CT CT ABDOMEN PELVIS W from 08/17/2019 FINDINGS: Right testicle: 3.6 x 2.5 x 2.7 cm Echogenicity: Normal. Contour: Smooth. Mass: None seen. Microlithiasis: None. Hydrocele: 4.9 x 2.7 x 3.3 cm hydrocele. Variocele: None. Hernia: There is a right inguinal hernia which appears to contain a loop of bowel. The hernia sac me asures 5.3 x 1.1 x 3.7 cm. Epididymis: Small epididymal head cysts. Left testicle: 3.8 x 2.4 x 3.1 cm Echogenicity: Normal. Contour: Smooth. Mass: None seen. Microlithiasis: None. Hydrocele: 3.1 x 3 x 1.8 cm hydrocele. Variocele: None. Hernia: No peristalsing bowel loop identified. Epididymis: Normal. DOPPLER: Color: Symmetric and uniform, no hyperemia. Duplex: Bilateral testicular arterial waveforms visualized. IMPRESSION: 1. No sonographic evidence of epididymitis. 2. Bilateral hydroceles. 3. Right inguinal hernia which appears to contain a loop of small bowel. A fat containing right ingu inal hernia is seen on the CT scan of the abdomen and pelvis from 08/17/2019. DATA REPOSITORY:
== END 2020-09-02 04:53 ==
PROVIDERS: PCP Nurse Practitioner Family; Visit Provider Physician Assistant
DX: N43.3 Hydrocele, unspecified (principal); K40.90 Unilateral inguinal hernia, without obstruction or gangrene, not specified as recurrent
CPT/HCPCS: 76870

== ENCOUNTER 2020-09-14 04:02 | Outpatient (CLI) | payer MEDICAID, SELFPAY ==
[2020-09-14 10:38] LABS: Abs Immature Grans 0.12 10^3/uL (0.0-0.06); Absolute Basophil Count 0.06 10^3/uL (0.0-0.2); Absolute Eosinophil Count 0.15 10^3/uL (0.0-0.7); Absolute Lymphocyte Count 1.24 10^3/uL (1.2-3.4); Absolute Monocyte Count 0.88 10^3/uL (0.1-0.8); Absolute Neutrophil Count 5.46 10^3/uL (1.2-6.7); Basophils % 0.8; Eosinophils % 1.9; HGB 12.7 g/dL (13.5-17.5); Immature Grans % 1.5; Lymphocytes % 15.7; MCH 33.6 pg (27.0-33.0); MCHC 32.6 % (32.0-36.0); MCV 103.2 fL (80-95); MPV 8.6 fL (8.0-11.0); Monocytes % 11.1; Nucleated RBC 0 %; Platelet Count 364 10^3/uL (130-400); RBC 3.78 10^6/uL (4.36-5.78); RDW 13.4 % (11.8-14.1); RDW-SD 50.5 fL; WBC 7.91 10^3/uL (4.4-10.8)
[2020-09-14 11:27] LABS: ALT 35 U/L (16-63); AST 20 U/L (15-37); Albumin 3.9 g/dL (3.4-5.0); Alkaline Phosphatase 105 U/L (46-116); Anion Gap 8.6 mmol/L (3-11); BUN 17 mg/dL (7-18); Bilirubin, Total 0.5 mg/dL (0.2-1.0); C-Reactive Protein 1.03 mg/dL (0.0-0.3); CO2 25.4 mmol/L (21.0-32.0); CREATININE 0.92 mg/dL (0.70-1.30); Calcium 9.1 mg/dL (8.5-10.1); Chloride 104 mmol/L (98-107); Glucose 101 mg/dL (74-106); Potassium 4.3 mmol/L (3.5-5.1); Sodium 138 mmol/L (136-145); Total Protein 6.6 g/dL (6.4-8.2)
== END 2020-09-14 04:22 ==
PROVIDERS: PCP Nurse Practitioner Family; Visit Provider Internal Medicine Rheumatology
DX: M06.4 Inflammatory polyarthropathy (principal); Z79.899 Other long term (current) drug therapy
CPT/HCPCS: 36415; 80053; 85025; 86140

== ENCOUNTER 2020-09-21 03:40 | Outpatient (CLI) | payer MEDICAID, SELFPAY ==
[2020-09-21 11:09] LABS: Iron 111 ug/dL (65-175); Total Iron Binding Capacity 343 ug/dL (250-450); Transferrin Sat 32 % (20-55)
[2020-09-21 11:35] LABS: Vitamin B12 280 pg/mL (193-986)
== END 2020-09-21 04:00 ==
PROVIDERS: Internal Medicine Rheumatology; PCP Nurse Practitioner Family; Visit Provider Surgery
DX: D75.89 Other specified diseases of blood and blood-forming organs (principal)
CPT/HCPCS: 36415; 82607; 83540; 83550

== ENCOUNTER 2020-09-23 03:31 | Outpatient (CLI) | payer MEDICAID, SELFPAY ==
[2020-09-25 17:15] LABS: COVID-19 RT-PCR Result NEGATIVE (Negative)
== END 2020-09-23 03:51 ==
PROVIDERS: PCP Nurse Practitioner Family; Visit Provider Surgery
DX: Z11.59 Encounter for screening for other viral diseases (principal); Z01.818 Encounter for other preprocedural examination
CPT/HCPCS: U0003

== ENCOUNTER 2020-09-26 00:50 | Outpatient (CLI) | payer MEDICAID, SELFPAY ==
--- NOTE | 2020-09-26 07:30 | DI.MRI_ITS ---
EXAM: MR UPPER JOINT RT WO CLINICAL HISTORY: PAIN,RT ROTATOR CUFF TENDINITIS,M75.81 TECHNIQUE: Multiplanar multisequence MRI of the shoulder was performed. COMPARISON: CR XR SHOULDER RT COMPLETE 2+V from 07/12/2020 FINDINGS: MARROW:There is no evidence of fracture, Hill-Sachs deformity, nor ominous osseous lesions. However, there are multiple degenerative subarticular cyst lateral aspect of humeral head and remnants of a pr obable fastener channel from remote surgery. ROTATOR CUFF MECHANISM: AC JOINT/ACROMIUM: There is no significant impingement at the AC joint level which exhibits no obviou s degenerative changes and possible prior decompression at this level. There is no evidence of os acromiale. Supraspinatus: Large full-thickness tear with retraction to the glenoid level. Moderate muscle atrop hy. Infraspinatus: Also large full-thickness tear with retraction. Also muscle atrophy. Teres Minor: Intact. No evidence of tear nor muscle atrophy. Subscapularis/anterior cuff: Partial thickness tearing anterior to the lesser tuberosity. No full-th ickness tear nor retraction. GLENOHUMERAL JOINT: There is upward subluxation of the humeral head relative to the glenoid fossa due to the large full-thickness tears of the rotator cuff mechanism. There is a small osteophyte on the inferior articular surface of the humeral head. Some degenerative cysts are noted in the lateral as pect the humeral head as well as in the inferior osseous glenoid. JOINT CAPSULE: No evidence of capsular tear. The inferior glenohumeral ligament is intact. BICEPS TENDON: Intra-articular aspect exhibits attenuation and perched on the lesser tuberosity. Not detached from the anterosuperior labrum. LABRUM: There is tearing of the posterior labrum. Anterior labrum appears intact. Some increased si gnal seen in the superior labrum. Also some tearing of the inferior labrum. No evidence of paralabr al cyst. QUADRILATERAL SPACE: No evidence of mass in the region of the axillary nerve and dorsal circumflex hu meral vessels. Visualized triceps muscle at this level appears unremarkable. IMPRESSION: 1. There are large full-thickness tears of both the supraspinatus and infraspinatus with large result ing bare area gap and superior subluxation of the humeral head. There is significant atrophy of thes e 2 muscles (teres minor remains intact). There is also mild partial thickness tearing of the insert ional fibers of the anterior cuff-subscapularis. There is no prominent impingement at the AC joint l evel which has probably undergone some decompression surgery remotely. 2. Abnormal biceps tendon which is perched on the lesser tuberosity and exhibits some attenuation. 3. Labral tearing as described above. No evidence of paralabral cyst. 4. Degenerative changes in the glenohumeral joint as described above. DATA REPOSITORY:
== END 2020-09-26 01:10 ==
PROVIDERS: PCP Nurse Practitioner Family; Visit Provider Orthopaedic Surgery
DX: M75.121 Complete rotator cuff tear or rupture of right shoulder, not specified as traumatic (principal); M19.011 Primary osteoarthritis, right shoulder
CPT/HCPCS: 73221

== ENCOUNTER 2020-09-28 06:20 | Day surgery (SDC) | payer MEDICAID, SELFPAY ==
[2020-09-28] VITALS (8 sets, daily range): BP systolic 95–120; BP diastolic 72–81; PULSE 77–89; RESP 14–22; TEMP 36.1–37.2; O2SAT 92–97
--- NOTE | 2020-09-28 06:53 | W.PM.OP ---
Date of service: 09/28/20 Time of Service: 08:56 Operative Note Operative Note DATE OF PROCEDURE: 09/28/20 PRE-OP DIAGNOSIS: Right inguinal hernia POST-OP DIAGNOSIS: other (Right direct and indirect inguinal hernia) PROCEDURE: Right inguinal hernia repair with mesh SURGEON: Caroline Cantu [employer] OPERATOR: Celia Hackett ANESTHESIA: JASSIA (ASA 3/Chad Zuluaga CRNA) PATHOLOGY: none sent COMPLICATIONS: None Patient was transported to: PACU Patient's condition: stable Implants: BARD Mesh: LOT- [id number] REF- [id number] 2024-12-11 Indications: 60 year old male with 6 weeks of RLQ pain. He has a hernia. Pain is relieved by laying down. NO changes in bowel habits and no urinary symptoms Discussed hernia repair with mesh using a pamphlet. We reviewed complications. Discussed COVID testing and quarantine requirements Right inguinal hernia repair with mesh Risks, benefits and complications have been reviewed. Complications include but are not limited to bleeding, infection, injury to vas, vessels and nerves, injury to bowel and adverse reaction to medications. Questions were entertained and answered to their satisfaction and they wished to proceed. COVID-19 testing explained to the patient. Reason for test reviewed. Quarantine per state requirements reviewed with patient. Patient understands and agrees to testing. Findings: Large direct hernia and small indirect hernia Procedure Description: After informed s was obtained the patient was taken to the operating room and placed in a supine position. Monitors and SCDs were applied and a timeout was done. The patient's name, date of , procedure type, procedure site, allergies to medications, preoperative antibiotic, and DVT prophylaxis were all reviewed. Fire risk was assessed. Next anesthesia did a tap block on the right side under ultrasound guidance. Please see their separate dictation. Once anesthesia was done the abdomen was prepped and draped in a sterile surgical fashion. 1% lidocaine was injected into the dermis in the right lower quadrant. An incision was made with a 10 blade in the right lower quadrant. Dissection was done with cautery through the subcutaneous tissues and Ted's fascia down to the external oblique fascia. The external ring was identified and the external oblique fascia was opened sharply through the external ring. The cut fascia was grasped with hemostats the cord structures were identified and a Neris drain was placed around them. The cremasteric muscle was dissected away from the cord structures using both cautery and blunt dissection. A cord lipoma was identified and removed from the cord structures and reduced back into the peritoneum. There was a large direct hernia and a small indirect hernia defect. The ileoinguinal nerve was cut. A 6 x 6 piece of mesh was then cut in half. One half was cut in thirds and a mesh plug was created. The plug was then placed into the small indirect defect and secured with 2-0 Proline to the fascia. The second half was cut to size and attached to the lacunar ligament using a 2-0 Prolene double armed suture. The mesh was secured laterally and medially with a 2-0 Prolene, with a running suture. The tails of the mesh were wrapped around the cord structures effectively cinching down the internal ring. Once the mesh was secured the tissues were irrigated with some normal saline. No bleeding was identified. The external oblique fascia was re-approximated using 2-0 Vicryl running suture. The Ted's fascia was re-approximated using interrupted 3-0 Vicryl. The dermis was re-approximated with a running 4-0 Vicryl. The skin was cleaned and dried and skin affix was applied. The patient was woken up and taken back to recovery in stable condition. There were no immediate complications. Sponge, instrument and needle counts were correct at the end of the case x2.
--- NOTE | 2020-09-28 06:56 | PDOC.DSDIS_ITS ---
Discharge Plan Disposition Patient Disposition: HOME Condition: Good Discharge Details Reason For Visit: Right inguinal hernia Attending Provider: Caroline Cantu Primary Care Provider: Brandi Jacob Home Meds and New Rx's Prescriptions: New acetaminophen [Tylenol] 325 mg capsule 650 mg PO Q6H PRNQty: 30 RF: 0 ibuprofen 600 mg tablet 600 mg PO Q6H PRNQty: 30 RF: 0 Continued aspirin 81 mg tablet,delayed release (DR/EC) 81 mg PO DAILY Qty: 1 RF: 0 methotrexate sodium 2.5 mg tablet 10 mg PO QWEEK RF: 0 folic acid 1 mg tablet 1 mg PO DAILY RF: 0 zolpidem 6.25 MG tablet,ext release multiphase 6.25 mg PO PRN RF: 0 triamcinolone acetonide 0.1 % cream 1 applic TP BID RF: 0 omeprazole 10 mg capsule,delayed release(DR/EC) 40 mg PO DAILY RF: 0 lisinopril 30 mg tablet 30 mg PO DAILY RF: 0 valacyclovir 1 gram tablet 2,000 mg PO BID RF: 0 tamsulosin 0.4 mg capsule 0.8 mg PO DAILY RF: 0 acetaminophen [Tylenol Extra Strength] 500 mg tablet 1,000 mg PO QID RF: 0 ibuprofen 800 mg tablet 800 mg PO TID PRN (Reason: pain) Qty: 60 RF: 0 hydroxychloroquine 200 mg tablet 200 mg PO BID RF: 0 Discharge Instructions Instructions: Open Herniorrhaphy (DC) Additional Instructions: Activity at Home after surgery: 1. Make sure you walk outside at least 4 times per day 2. You should be able to climb a flight of stairs 3. No driving while in pain or taking pain medications 4. No strenuous activity or heavy lifting for 4 weeks (open surgery) Diet, Nutrition, & wound healin. Avoid alcohol until after you are recovered from your surgery 2. Make sure to eat plenty of lean protein (meat, fish, eggs, cottage cheese, beans) 3. Eat a variety of fruits and vegetables. Eat plenty of high fiber foods to avoid constipation. 4. Drink plenty of liquids to stay hydrated and avoid constipation Pain Medications: 1. Tylenol 650 mg every 6 hours as needed and Ibuprofen 600 mg every 6 hours as needed. May alternate between the 2 medications every 3 hours 2. If a narcotic has been prescribed take as directed only for breakthrough pain For Constipation: 1. Take Milk of Magnesia or MiraLax as needed for constipation Other: 1. You may shower daily. Do not scrub the incisions 2. Do not soak the incisions for 1 week 3. You may alternate ice and heat as needed for pain and swelling Wound Care: 1. Keep the incisions clean and dry Please call our office if you develop: 1. Fevers >101.5 2. Nausea or Vomiting 3. Worsening pain 4. Redness and thick discharge from the wounds If after hours please call the Hospital at and ask to speak to the on-call surgeon Referrals: Caroline Cantu MD [ [facility] STAFF PHYSICIAN] - 10/18/20 8:30 am Activity:: no lifting >20lb x 4 weeks Diet:: As Tolerated Discharge Orders Discharge Orders: Discharge Order (Routine); Ordered 09/28/20 Ordered By: Caroline Cantu
[2020-09-28] MEDS: Celecoxib 200 MG CAP PO (06:58)
[2020-09-28] MEDS: Lactated Ringers 1,000 ML 80 ML IV (07:05)
[2020-09-28] MEDS: Acetaminophen 500 MG TAB 1000 MG PO (07:12)
[2020-09-28] MEDS: ceFAZolin 2 GM/50 ML BAG IVPB (07:31)
[2020-09-28] MEDS: Bupivacaine 0.5% Pres-Free 30 ML VIAL (07:38)
[2020-09-28] MEDS: Bupivacaine LIPOSOME/PF 133 MG/10 ML VIAL IJ (07:38)
[2020-09-28] MEDS: Lidocaine 1% Multi-Dose 50 ML VIAL (07:59)
[2020-09-28] MEDS: HYDROmorphone 2 MG/ML VIAL IVP ×4 (09:14→09:58)
[2020-09-28] MEDS: oxyCODONE 5 MG TAB PO (10:31)
== END 2020-09-28 12:08 | disposition home or self-care (01) ==
PROVIDERS: PCP Nurse Practitioner Family; Visit Provider Surgery
PROC: (CPT 49505; principal; 2020-09-28 07:30)
DX: K40.90 Unilateral inguinal hernia, without obstruction or gangrene, not specified as recurrent (principal); G89.18 Other acute postprocedural pain; K21.9 Gastro-esophageal reflux disease without esophagitis
CPT/HCPCS: 49505; 76942; C1781; J0690; J1100; J1885; J2001; J2405; J2704

== ENCOUNTER 2020-09-29 11:19 | Outpatient (CLI) | payer MEDICAID, SELFPAY ==
--- NOTE | 2020-09-29 09:45 | DI.RAD_ITS ---
EXAM: XR PELVIS AP CLINICAL HISTORY: pre TUTU. TECHNIQUE: 2D digital imaging was performed. COMPARISON: CR XR PELVIS AP from 09/09/2019 FINDINGS: No evidence of hip fractures. Significant degenerative changes in the right hip are again noted. No osseous lesions. Left hip unremarkable IMPRESSION: Right hip osteoarthritis. DATA REPOSITORY: RADIATION DOSE DELIVERED:
== END 2020-09-29 11:39 ==
PROVIDERS: PCP Nurse Practitioner Family; Referring Provider Nurse Practitioner Family; Visit Provider Student in an Organized Health Care Education/Training Program
DX: M16.11 Unilateral primary osteoarthritis, right hip (principal)
CPT/HCPCS: 72170

== ENCOUNTER 2020-10-13 03:02 | Outpatient (CLI) | payer MEDICAID, SELFPAY ==
[2020-10-13 10:44] LABS: HCT 40.2 % (40.0-50.0); HGB 13.2 g/dL (13.5-17.5); MCH 33.3 pg (27.0-33.0); MCHC 32.8 % (32.0-36.0); MCV 101.5 fL (80-95); MPV 8.3 fL (8.0-11.0); Platelet Count 401 10^3/uL (130-400); RBC 3.96 10^6/uL (4.36-5.78); RDW 12.7 % (11.8-14.1); RDW-SD 47.4 fL; WBC 10.31 10^3/uL (4.4-10.8)
[2020-10-13 11:21] LABS: Anion Gap 9.1 mmol/L (3-11); BUN 21 mg/dL (7-18); CO2 24.9 mmol/L (21.0-32.0); CREATININE 0.95 mg/dL (0.70-1.30); Calcium 9.1 mg/dL (8.5-10.1); Chloride 100 mmol/L (98-107); Glucose 93 mg/dL (74-106); Potassium 4.1 mmol/L (3.5-5.1); Sodium 134 mmol/L (136-145)
== END 2020-10-13 03:22 ==
PROVIDERS: PCP Nurse Practitioner Family; Visit Provider Student in an Organized Health Care Education/Training Program
DX: M25.551 Pain in right hip (principal); M16.11 Unilateral primary osteoarthritis, right hip; Z01.818 Encounter for other preprocedural examination; Z01.812 Encounter for preprocedural laboratory examination
CPT/HCPCS: 36415; 80048; 85027; 86850; 86900; 86901

== ENCOUNTER 2020-10-13 11:25 | Outpatient (CLI) | payer MEDICAID, SELFPAY ==
[2020-10-15 15:56] LABS: COVID-19 RT-PCR UVMMC Result Negative (Negative)
== END 2020-10-13 11:45 ==
PROVIDERS: PCP Nurse Practitioner Family; Visit Provider Student in an Organized Health Care Education/Training Program
DX: Z11.59 Encounter for screening for other viral diseases (principal); Z01.818 Encounter for other preprocedural examination
CPT/HCPCS: U0003

== ENCOUNTER 2020-10-19 09:13 | Day surgery (SDC) | payer MEDICAID, SELFPAY ==
[2020-10-19] VITALS (11 sets, daily range): BP systolic 108–148; BP diastolic 65–90; PULSE 105–126; RESP 16–28; TEMP 35.8–36.9; O2SAT 94–97
--- NOTE | 2020-10-19 07:57 | PDOC.DSDIS_ITS ---
Documented by User: CARLITA Gutierrez 10/19/20 08:21 Discharge Plan Disposition Patient Disposition: HOME Condition: Good Discharge Details Reason For Visit: R TUTU Attending Provider: Fabricio Lofton Primary Care Provider: Brandi Jacob Home Meds and New Rx's Prescriptions: New aspirin 81 mg tablet,delayed release (DR/EC) 81 mg PO BID Qty: 60 RF: 0 celecoxib [Celebrex] 200 mg capsule 200 mg PO BID Qty: 60 RF: 0 oxycodone 5 mg tablet 5 mg PO Q4H PRNQty: 18 RF: 0 acetaminophen [Tylenol Extra Strength] 500 mg tablet 500 mg PO Q6H PRNQty: 90 RF: 0 docusate sodium [Colace] 100 mg capsule 100 mg PO BID PRNQty: 10 RF: 0 Continued methotrexate sodium 2.5 mg tablet 7.5 mg PO BID RF: 0 folic acid 1 mg tablet 1 mg PO DAILY RF: 0 zolpidem 6.25 MG tablet,ext release multiphase 6.25 mg PO PRN RF: 0 triamcinolone acetonide 0.1 % cream 1 applic TP BID RF: 0 omeprazole 10 mg capsule,delayed release(DR/EC) 40 mg PO DAILY RF: 0 lisinopril 30 mg tablet 30 mg PO DAILY RF: 0 valacyclovir 1 gram tablet 2,000 mg PO BID RF: 0 tamsulosin 0.4 mg capsule 0.8 mg PO DAILY RF: 0 hydroxychloroquine 200 mg tablet 200 mg PO BID RF: 0 Discontinued aspirin 81 mg tablet,delayed release (DR/EC) 81 mg PO DAILY Qty: 1 RF: 0 acetaminophen [Tylenol Extra Strength] 500 mg tablet 1,000 mg PO QID RF: 0 ibuprofen 800 mg tablet 800 mg PO TID PRN (Reason: pain) Qty: 60 RF: 0 acetaminophen [Tylenol] 325 mg capsule 650 mg PO Q6H PRNQty: 30 RF: 0 ibuprofen 600 mg tablet 600 mg PO Q6H PRNQty: 30 RF: 0 oxycodone 5 mg tablet 5 mg PO Q6H PRNQty: 14 RF: 0 No Action aspirin [Aspirin Child] 81 mg Tablet,Chewable 81 mg PO DAILY RF: 0 acetaminophen [Tylenol Extra Strength] 500 mg Capsule 1,000 RF: 0 Discharge Instructions Additional Instructions: Total Hip Discharge Instructions Activity: The most important activity is to walk. You should try to take short walks a few times a day. You have no restrictions on movement or positioning, but do not try to force what you do. You will find some stiffness and weakness with hip flexion (lifting your knee). Do not try to strengthen this too early, continue to practice walking and stairs and this will come. - Outpatient physical therapy can be helpful to help return you to a normal gait and improve your flexibility and strength. This can start around 2 weeks. For some patients, it?s not necessary. Usually this is determined at the time of discharge or at the first post-operative visit. - You should wear the GAIL hose on both legs for 2 weeks. Dressing: Keep the surgical dressing in place for at least one week. After the first week it may be removed and replace with light gauze and tape or nothing. It may get wet after 3 days but avoid soaking the dressing. If it gets wet, just lightly pat dry. It is important to always keep some gauze between skin folds, especially when you are sitting. Spend some time with the wound exposed when you are lying flat as the incision does wrinkle onto itself. Medications: - You should take Tylenol and an anti-inflammatory Celebrex as your primary pain control medications. If the Celebrex is too expensive or not covered, please call the office for another alternative (Advil/Ibuprofen or Naproxen/Aleve). - You have been prescribed a stronger pain medication Oxycodone for breakthrough pain, take as needed as prescribed. - You may continue with your home medication, omeprazole 40mg daily, to help reduce stomach acid and reflux. - You will be taking Aspirin 81mg twice a day for DVT prevention unless instructed otherwise. - If you have constipation you should take Colace or Miralax (both [id number]). It takes most people 3-4 days to have a bowel movement. Follow-up: 2 weeks If you have any acute concerns or questions, please do not hesitate to contact the office at [phone]. You may contact Dr. Lofton with any questions after hours through the hospital at [phone] or on his cell phone at [phone]. Referrals: Fabricio Lofton MD [ [facility] STAFF PHYSICIAN] - Equipment/Supplies: Walker Activity:: Activity as Tolerated Remove Dressings/Wound Care:: Do Not Remove Shower/Bathe:: 72 hours Diet:: As Tolerated Discharge Orders Discharge Orders: Discharge Order (Routine); Ordered 10/19/20 Ordered By: Sheela Solorio DS: Diagnosis Discharge Diagnosis (1) Osteoarthritis of right hip: Status: Acute Documented by User: Fabricio Lofton MD 10/19/20 14:32 Discharge Plan Disposition Patient Disposition: HOME Condition: Good Discharge Details Reason For Visit: R TUTU Attending Provider: Fabricio Lofton Primary Care Provider: Brandi Jacob Home Meds and New Rx's Prescriptions: New aspirin 81 mg tablet,delayed release (DR/EC) 81 mg PO BID Qty: 60 RF: 0 celecoxib [Celebrex] 200 mg capsule 200 mg PO BID Qty: 60 RF: 0 oxycodone 5 mg tablet 5 mg PO Q4H PRNQty: 18 RF: 0 acetaminophen [Tylenol Extra Strength] 500 mg tablet 500 mg PO Q6H PRNQty: 90 RF: 0 docusate sodium [Colace] 100 mg capsule 100 mg PO BID PRNQty: 10 RF: 0 Continued methotrexate sodium 2.5 mg tablet 7.5 mg PO BID RF: 0 folic acid 1 mg tablet 1 mg PO DAILY RF: 0 zolpidem 6.25 MG tablet,ext release multiphase 6.25 mg PO PRN RF: 0 triamcinolone acetonide 0.1 % cream 1 applic TP BID RF: 0 omeprazole 10 mg capsule,delayed release(DR/EC) 40 mg PO DAILY RF: 0 lisinopril 30 mg tablet 30 mg PO DAILY RF: 0 valacyclovir 1 gram tablet 2,000 mg PO BID RF: 0 tamsulosin 0.4 mg capsule 0.8 mg PO DAILY RF: 0 hydroxychloroquine 200 mg tablet 200 mg PO BID RF: 0 Discontinued aspirin 81 mg tablet,delayed release (DR/EC) 81 mg PO DAILY Qty: 1 RF: 0 acetaminophen [Tylenol Extra Strength] 500 mg tablet 1,000 mg PO QID RF: 0 ibuprofen 800 mg tablet 800 mg PO TID PRN (Reason: pain) Qty: 60 RF: 0 acetaminophen [Tylenol] 325 mg capsule 650 mg PO Q6H PRNQty: 30 RF: 0 ibuprofen 600 mg tablet 600 mg PO Q6H PRNQty: 30 RF: 0 oxycodone 5 mg tablet 5 mg PO Q6H PRNQty: 14 RF: 0 No Action aspirin [Aspirin Child] 81 mg Tablet,Chewable 81 mg PO DAILY RF: 0 acetaminophen [Tylenol Extra Strength] 500 mg Capsule 1,000 RF: 0 Discharge Instructions Additional Instructions: Total Hip Discharge Instructions Activity: The most important activity is to walk. You should try to take short walks a few times a day. You have no restrictions on movement or positioning, but do not try to force what you do. You will find some stiffness and weakness with hip flexion (lifting your knee). Do not try to strengthen this too early, continue to practice walking and stairs and this will come. - Outpatient physical therapy can be helpful to help return you to a normal gait and improve your flexibility and strength. This can start around 2 weeks. For some patients, it?s not necessary. Usually this is determined at the time of discharge or at the first post-operative visit. - You should wear the GAIL hose on both legs for 2 weeks. Dressing: Keep the surgical dressing in place for at least one week. After the first week it may be removed and replace with light gauze and tape or nothing. It may get wet after 3 days but avoid soaking the dressing. If it gets wet, just lightly pat dry. It is important to always keep some gauze between skin folds, especially when you are sitting. Spend some time with the wound exposed when you are lying flat as the incision does wrinkle onto itself. Medications: - You should take Tylenol and an anti-inflammatory Celebrex as your primary pain control medications. If the Celebrex is too expensive or not covered, please call the office for another alternative (Advil/Ibuprofen or Naproxen/Aleve). - You have been prescribed a stronger pain medication Oxycodone for breakthrough pain, take as needed as prescribed. - You may continue with your home medication, omeprazole 40mg daily, to help reduce stomach acid and reflux. - You will be taking Aspirin 81mg twice a day for DVT prevention unless instructed otherwise. - If you have constipation you should take Colace or Miralax (both over -the-counter). It takes most people 3-4 days to have a bowel movement. Follow-up: 2 weeks If you have any acute concerns or questions, please do not hesitate to contact the office at [phone]. You may contact Dr. Lofton with any questions after hours through the hospital at [phone] or on his cell phone at [phone]. Referrals: Fabricio Lofton MD [ [facility] STAFF PHYSICIAN] - Equipment/Supplies: Walker Activity:: Activity as Tolerated Remove Dressings/Wound Care:: Do Not Remove Shower/Bathe:: 72 hours Diet:: As Tolerated Discharge Orders Discharge Orders: Discharge Order (Routine); Ordered 10/19/20 Ordered By: Sheela Solorio
[2020-10-19] MEDS: Celecoxib 200 MG CAP 400 MG PO (10:29)
[2020-10-19] MEDS: Lactated Ringers 1,000 ML 80 ML IV (10:35)
--- NOTE | 2020-10-19 10:45 | DI.RAD_ITS ---
EXAM: XR HIP RT IN OR CLINICAL HISTORY: Osteoarthritis of right hip. TECHNIQUE: 2D digital imaging was performed. COMPARISON: No exams were available for comparison FINDINGS: Intraoperative fluoroscopy was provided during right hip replacement surgery. Approximately time 32 seconds; cumulative dose 5.61mGy IMPRESSION: DATA REPOSITORY: RADIATION DOSE DELIVERED:
[2020-10-19] MEDS: ceFAZolin 2 GM/50 ML BAG IVPB (12:58)
[2020-10-19] MEDS: Bupivacaine 0.25% Pres-Free 30 ML VIAL (13:58)
[2020-10-19] MEDS: Ketorolac 30 MG/ML VIAL (13:58)
[2020-10-19] MEDS: HYDROmorphone 2 MG/ML VIAL IVP ×3 (14:40→15:05)
[2020-10-19] MEDS: Normal Saline Flush 10 ML SYR IV (14:46)
--- NOTE | 2020-10-19 14:52 | ROE_ITS ---
Date of service: 10/19/20 Time of Service: 14:52 Operative Note Operative Note DATE OF PROCEDURE: 10/19/20 PRE-OP DIAGNOSIS: Right Hip Osteoarthritis POST-OP DIAGNOSIS: same PROCEDURE: Right Anterior Total Hip Arthroplasty SURGEON: Fabricio Lofton GRASS FARMER: Sheela Solorio ANESTHESIA: spinal ESTIMATED BLOOD LOSS: 200 PATHOLOGY: none sent COMPLICATIONS: Other (There is a small crack noted to the tip of the greater trochanter which was stable and not extending distal to the abductor insertion.) Patient was transported to: PACU Patient's condition: stable Implants: 1. Depuy Conrath Acetabular Component, 52mm 2. Depuy Acetabular Liner, 62m58ry 3. Depuy Corail High Offset Collared Femoral Stem, Size 14 4. Depuy Altrx Ceramic Femoral Head, Size 32+1mm Indications: I have seen Eduardo in clinic for symptoms of hip arthritis, confirmed with radiographic findings. Eduardo has exhausted nonoperative methods and was having significant limitations in daily function and desired better function and less pain. I discussed the technical details of a hip replacement. I explained the risks of the procedure to include, but not limited to, bleeding, infection, pain, stiffness, fracture, damage to nerves and vessels, damage to muscles and tendons, loosening, instability, leg length inequality, need for repeat procedure, blood clot and cardiopulmonary demise. Despite these risks, Eduardo elected to proceed. Findings: There was significant signs of arthritis throughout the hip. Large osteophytes were seen around the femoral head with complete loss of cartilage. Fracture of the tip of the greater trochanter was identified in removing the last broach. It was stable no other fixation was required. Procedure Description: Eduardo was greeted in the preoperative holding area where the correct side was identified and marked. The consent was reviewed with the patient and signed. The history and physical was updated. All questions were answered. He was taken back to the operating room. A spinal anesthestic was then administered. The feet were wrapped with cast padding and Coban and then placed into the boot liners and then into the boots. Care was taken to protect the skin and make sure the heels were fully down and the boots were stable. The patient was then positioned onto the HANA table. Both legs were held in a neutral position. SCDs were applied. The patient was then slid down onto a peroneal post. A preoperative AP pelvis was obtained to serve as a reference for determining leg lengths. Prophylactic antibiotics in the form of cefazolin were administered. 1g of Tranxemic Acid was given intravenously within 30 minutes of incision. The right leg was then prepped with Chloraprep and draped in a standard fashion. A second prep with Chloraprep was performed prior to placement of a shower-curtain type drape with Iodine impregnated skin protection. A timeout to confirm correct identity, side and site, procedure, allergies, anesthesia, and medical concerns was performed. An obliquely oriented incision was made starting lateral to the ASIS and running distal over the Tensor Fascia Cristine (TFL) muscle belly toward the fibular head, approximately 10cm. The skin and soft tissue was dissected sharply, through Ted?s fascia, and to the fascia of the TFL. With the fascia and superior border of the IT band identified, the fascia was incised with a new knife just above any perforators from the IT band. The TFL muscle belly was bluntly dissected away from the fascia and moved laterally. The fat between TFL and rectus was identified to ensure the dissection was not within the TFL. Blunt dissection created space between abductors and the capsule and retractor was placed over the lateral femoral neck. The fibers of the rectus femoris tendon were identified and these were freed from the anterior capsule. A second cobra retractor was placed around the medial femoral neck. The TFL was further retracted laterally to show the deep fascia. Careful dissection through this layer identified three main crossing vessels of the lateral femoral circumflex. These were cauterized in multiple locations and then cut without any noticeable bleeding. The TFL was further released bluntly from the deep fascia to expose anterior hip capsule and fat the Russel orthopaedic retractor was then placed beneath the TFL and against sartorius and medial soft tissues to protect and retract the soft tissues. A T-capsulotomy was then performed starting at the superior lateral acetabulum and moving distally to the intertrochanteric ridge. These capsular flaps were tagged with a No. 1 Ethibond and elevated from within. The capsular flaps were released to the shoulder of the lateral neck and to the lesser trochanter to give excellent visualization of the proximal femur. A neck osteotomy was performed using an oscillating saw based on preoperative templates. This cut started in the shoulder and of the lateral neck and exited medially. The saw was at all times directed medially to avoid injury to the greater trochanter. 6cm of traction was applied to the leg and the osteotomy opened. The femoral head was removed with a corkscrew, making sure to protect the TFL on its exit. Traction was released after head removal. This was measured on the back table to determine the starting reamer size. Portions of the rectus obscuring visualization were minimally elevated off the superior acetabulum. An anterior retractor was placed over the anterior wall between capsule and labrum and attached to the Gripper retraction system. The femur was rotated to 90 degrees and medial capsule was fully released until the lesser trochanter was palpable and visible; the femur was returned to 30 degrees. A posterior retractor was placed similarly between capsule and labrum. This provided excellent visualization. The contents of the cotyloid fossa were removed with electrocautery and the labrum was removed with a knife. There was a notable floor osteophyte. There was significant chondromalacia of the superior acetabulum. Acetabular reaming began with a 48mm reamer. This first reaming was directed anterior to posterior and medial to get down to the true floor. This was inspected and reamed until the true floor was reached. The anterior retractor was then released and entry and exit was provided by traction on the capsular flaps. I then reamed sequentially up to a 52mm reamer where good fit was obtained. The larger reamers were oriented based on anatomical reference of the anterior and lateral saravia to ensure proper abduction and anteversion. Positioning and size was confirmed with the fluoroscopy. A 52mm Depuy Conrath acetabular component was selected. The acetabulum was reamed around the periphery with the selected acetabular size to prevent a rim fit. The deep tissues were irrigated. The acetabular component was then impacted in a position of about 40-45 degrees of abduction and 15-20 degrees of anteversion, using the patient?s anatomy as the ultimate landmark. Fluoroscopy was used to confirm this. There was excellent high school english teacher of the acetabular component and the inserting handle was removed. The acetabular liner, Depuy [id number] polyethylene liner, was inserted and lined up with the tines of the acetabular component. There was no soft tissue interposition. The liner was then impacted into position and confirmed to be well-seated. A portion of the cassi-articular cocktail was then injected around the acetabulum into the capsule and periosteum. This cocktail consisted of 50cc of 0.25% Bupivicaine and 20cc of Exparel and 30mg of Ketorolac. The leg was rotated to 120 degrees. Any remaining medial capsule was released until the lesser trochanter was easily palpable. A retractor was placed medially. The lateral capsule was further released into the shoulder to allow access to the greater trochanter. A Alvarado retractor was placed over the greater trochanter which allowed the trochanter to flip in front of the capsule for excellent exposure. The leg was brought down into maximal extension and 20 degrees of adduction while ensuring there was no impingement on the acetabulum. Any remnant capsule within the trochanter was released. Piriformis and obturator externis were identified and protected. There was excellent access to the proximal femur. The lateral neck remnant was removed with a rongeur. A blunt canal probe was used to identify the canal and trajectory for later broaching. A box osteotome initiated the broach course. A small curved rasp and a curved curette were used to work laterally. Broaching then began with a size 8 Corail broach. This was inserted manually around the trochanter and into the canal before mallet blows. The broach was seated to a few millimeters below the cut level based on the neck cut and the preoperative template. Sequential broaching was continued with the [employer] pneumatic broaching device until a tight fit was obtained with good rotational control of the femur. A trial high offset neck was inserted along with a +1 trial head. The leg was brought out of extension and adduction and then reduced with traction and internal rotation. The leg was stable anteriorly in a position of 30 degrees of extension and 90 degrees of external rotation. Fluoroscopy was used to ensure there was no fracture and the stem was seated well. Leg lengths were checked with an AP pelvis and pelvic reference points. Savosolar navigation system was used to confirm appropriate positioning and leg length and offset. Once content with the desired offset and leg lengths, the leg was brought back into extension, external rotation and adduction. The periosteum and surrounding tissue was injected with remaining portion of the cassi-articular cocktail. The proximal femur was irrigated as well as the deep tissues. The Simply Easier Paymentsuy Corail high offset stem, size 14, was then manually inserted into the proximal femur making sure to control rotation. It was then malleted into position with light blows, giving breaks to allow bone expansion and decrease risk of fracture. The selected Depuy Altrx Ceramic Head, size 32+1mm, was then placed onto the clean and dry trunnion and secured with impaction onto the tapered fit. The leg was brought back out of extension and adduction and reduced with traction and internal rotation. Stability was confirmed with no shuck at 90 degrees of external rotation and 30 degrees of extension. No impingement through range of motion arc. Final x-ray images were obtained with fluoroscopy to confirm adequate positioning and no intraoperative fracture. The crack of the greater trochanter tip was not visible on final x-rays. The deep tissues were thoroughly irrigated with Irrisept chlorhexadine solution. The second dose of TXA 1g was administered intravenously. The capsule was then reapproximated with the previously placed Ethibond sutures. The TFL fascia was finally closed with a No. 2 Stratafix, barbed suture. Deep tissues were then reapproximated with 0 Vicryl and a running 2-0 Vicryl. The skin was closed with a running 4-0 Monocryl in a subcuticular fashion. This was reinforced with skin glue. A Mepilex silver dressing was applied. At the end of the case, all counts were correct. Eduardo was transferred to the hospital bed without difficulty. Eduardo has a good prognosis. Physical therapy will start today and without restrictions, weight-bearing as tolerated. Aspirin 81mg BID will be used for DVT prophylaxis.
[2020-10-19] MEDS: oxyCODONE 5 MG TAB PO (15:43)
[2020-10-19] MEDS: Ondansetron 4 MG/2 ML VIAL IVP (17:12)
--- NOTE | 2020-10-19 17:17 | IN_ITS ---
PT Notes Visit Reasons: R TUTU Physical Therapy Day Surgery Unit Initial Evaluation Date: 10/19/2020 Referring Doctor: CARLITA Lynch PT Orders: PT CONSULT: Status post Ortho surgery Precautions: Fall. Standard. WBAT on right LE. Patient Profile/Admitting Diagnosis: Eduardo is a 60-year-old male with right rotator cuff tear arthropathy, complete tear of right rotator cuff, and degenerative joint disease of the right hip and is status post right total hip arthroplasty on postoperative day 0. He is scheduled to have surgery with Dr. Jose later this month for his shoulder pathology. 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 There is another flight of steps to the bedroom with one rail on the right side and a wall on the other side. Independent with all aspects of ADLs without an assistive device prior to surgery. Equipment Owned/DME: [employer] Subjective: Agreeable to PT consult. Indicated that he he tripped on a boot yesterday afternoon and hit the corner of the kitchen island with the left side of his chest, states that he did not hit the floor. Reports a less than 5/10 pain in the right hip with weight bearing. Complained about nausea and feeling sick to his stomach after ambulation activity and required about 8 to 10 minutes of rest while nurses Tosha and Norma monitor his vital signs. Objective: General Observation: TEDS to B legs. IV the access in right UE. Mepilex Ag over surgical incision. No bruising noted on left side of chest. Mental Status: Alert and oriented x4 Pain: 5/10 pain in the right hip during weight bearing Vital Signs: HR increased to the high 120s after ambulation activity with complaints of nausea and feeling sick to his stomach ROM: Right Upper Extremity: Shoulder Flexion allows about 170 degrees without pain. Shoulder abduction allows about 160 degrees without pain. Elbow flexion WFL. Wrist flexion WFL. Opening and closing of hand WFL. Left Upper Extremity: Shoulder Flexion WFL. Shoulder abduction WFL. Elbow flexion WFL. Wrist flexion WFL. Opening and closing of hand WFL. Right Lower Extremity: Lacks about 20 degrees of hip flexion while seated at edge of bed. Hip abduction WFL but with pain at end of range. Knee flexion WFL. Ankle dorsiflexion WFL. Ankle plantarflexion WFL. Left Lower Extremity: Hip flexion WFL. Hip abduction WFL. Knee flexion WFL. Ankle dorsiflexion WFL. Ankle plantarflexion WFL. Strength: Right Upper Extremity: Shoulder flexors 3-/5. Shoulder abductors 3-/5. Elbow flexors 5/5. Elbow extensors 5/5. Epic Radiant Analyst strong. Left Upper Extremity: Shoulder flexors 5/5. Shoulder abductors 5/5. Elbow flexors 5/5. Elbow extensors 5/5. Epic Radiant Analyst strong. Right Lower Extremity: Hip flexors 3-/5. Hip abductors 5/5. Knee flexors 5/5. Knee extensors 5/5. Ankle dorsiflexors 5/5. Ankle plantarflexors 5/5. Left Lower Extremity:Hip flexors 5/5. Hip abductors 5/5. Knee flexors 5/5. Knee extensors 5/5. Ankle dorsiflexors 5/5. Ankle plantarflexors 5/5. Sensation: Intact as to pain and pressure on bilateral lower extremities. Bed Mobility/Transfers: Rolling independent Supine to sit supervision Sit to supine supervision Sit to stand contact-guard assist Stand to sit contact-guard assist Bed to chair contact-guard assist Gait: The patient through level surface ambulation of 150 feet using the front wheeled walker with step through gait pattern with report of 5/10 pain in the right hip and with complaints of nausea at end of activity necessitating seated rest for about 10 minutes. Heart rate spiked to the high 120s and oxygen saturation decrease of a 90% on room air, both resolved to within normal limits after 10 minutes. Demonstrated minimal in-toeing on the right side that is not accompanied by pain. Stairs: Instructed on safe strategies for going up and down for 4 inch steps while holding onto 1 rail and onto PT's hand for support on the other side for safety with step-to gait pattern without further increase in pain report nor nausea. THERA EX: Eduardo was instructed on correct performance of seated level balance exercises consisting of seated hip flexion x10, seated hip abduction x10, and L AQ's x10 without increase in pain nor increased nausea. Balance: Static Sitting: Normal Dynamic Sitting: Normal Static Standing: Fair Dynamic Standing: Fair Special Tests: Mobility Limitations Standardized Measure [facility] AM-PAC 6 clicks Basic Mobility Inpatient Short Form: Raw Score: 22 CMS Score: 21% deficit Informed Consent/Education: Patient instructed in purpose of PT consult. Assessment: Eduardo requires the use of a front wheeled walker to maximize independence and reduce fall risk at discharge destination. He will benefit from outpatient physical therapy services for postop rehabilitation to facilitate facilitate return to independent community ambulation. Patient presents with clinical signs and symptoms consistent with current/admitting diagnoses that have resulted to mobility limitations, gait instability, generalized weakness, and impairment of motor control as demonstrated by the following impairment level findings: 1. Decreased strength to right hip major muscle groups 2. Impaired standing balance 3. Impaired activity tolerance Impairments are contributing to the following functional limitations: 1. Inability to safely ambulate without assistive device 2. Increased fall risk 3. Inability to negotiate steps alone safely Patient is assessed as a 73821 moderate complexity based on the following: History: 60-year-old male with impairment level findings, functional limitations, and past medical history as indicated above Examination: Demonstrable impairment in strength, balance, and mobility level with underlying impairments and functional limitations as documented above Presentation: Evolving Decision Makin complexity Goals: N/A. PT evaluation and 1 treatment session only for functional ability training using the 4 wheeled walker and for HEP instruction. Plan of Care/Treatment Plan: N/A. PT evaluation and 1 treatment session only for functional ability training using the 4 wheeled walker and for HEP instruction. Front wheeled walker has been assembled and fitted for patient prior to today's discharge. DISCHARGE RECOMMENDATIONS: Home when medically cleared by orthopedic surgeon. Use front wheeled walker for maximize independence and reduce fall risk. He will benefit from outpatient physical therapy services for postop rehabilitation to facilitate facilitate return to independent community ambulation. TREATMENT CODE/TIME: Session 1??43363 x 30 minutes, 98703 x 27 minutes beginning at 16:05 PM. Session 2??86640 x 13 minutes beginning at 5:17 PM. Thank you for the opportunity to participate in the care of this patient. Shanti Wong PT, DPT, CLT [facility] [place], [place]
== END 2020-10-19 17:59 | disposition home or self-care (01) ==
PROVIDERS: PCP Nurse Practitioner Family; Visit Provider Student in an Organized Health Care Education/Training Program
PROC: (CPT 27130; principal; 2020-10-19 09:45)
DX: M16.11 Unilateral primary osteoarthritis, right hip (principal); M25.551 Pain in right hip; Z96.641 Presence of right artificial hip joint; M96.89 Other intraoperative and postprocedural complications and disorders of the musculoskeletal system; I10 Essential (primary) hypertension; G47.33 Obstructive sleep apnea (adult) (pediatric); K21.9 Gastro-esophageal reflux disease without esophagitis
CPT/HCPCS: 27130; 20985; C1776; 97116; 97162; 73501; J0690; J1100; J1885; J2250; J2370; J2405

== ENCOUNTER 2020-11-03 11:36 | Outpatient (CLI) | payer MEDICAID, SELFPAY ==
--- NOTE | 2020-11-03 11:15 | DI.RAD_ITS ---
EXAM: XR HIP RT COMPLETE AP PELVIS CLINICAL HISTORY: R TUTU. TECHNIQUE: 2D digital imaging was performed. COMPARISON: CR XR PELVIS AP from 09/29/2020 XR HIP RT IN OR from 10/19/2020 FINDINGS: BONES: There are stable post operative changes present. No fracture or dislocation. There is a tiny osseous fragment at the superior aspect of the right greater trochanter. JOINTS: The joint spaces are well maintained. No joint effusion is present. SOFT TISSUE: Normal. IMPRESSION: Stable postoperative changes. DATA REPOSITORY: RADIATION DOSE DELIVERED:
== END 2020-11-03 11:56 ==
PROVIDERS: PCP Nurse Practitioner Family; Referring Provider Nurse Practitioner Family; Visit Provider Physician Assistant
DX: Z96.641 Presence of right artificial hip joint (principal)
CPT/HCPCS: 73502

== ENCOUNTER 2020-11-11 02:11 | Outpatient (CLI) | payer MEDICAID, SELFPAY ==
[2020-11-11 09:21] LABS: Abs Immature Grans 0.04 10^3/uL (0.0-0.06); Absolute Basophil Count 0.05 10^3/uL (0.0-0.2); Absolute Lymphocyte Count 1.25 10^3/uL (1.2-3.4); Absolute Monocyte Count 0.49 10^3/uL (0.1-0.8); Eosinophils % 2.1; HCT 38.3 % (40.0-50.0); HGB 12.6 g/dL (13.5-17.5); Immature Grans % 0.8; Lymphocytes % 25.9; MCHC 32.9 % (32.0-36.0); MCV 100.3 fL (80-95); MPV 7.9 fL (8.0-11.0); Monocytes % 10.1; Neutrophils % 60.1; Nucleated RBC 0 %; Platelet Count 422 10^3/uL (130-400); RBC 3.82 10^6/uL (4.36-5.78); RDW 13.1 % (11.8-14.1); RDW-SD 47.5 fL; WBC 4.83 10^3/uL (4.4-10.8)
[2020-11-11 10:49] LABS: ALT 24 U/L (16-63); AST 19 U/L (15-37); Albumin 3.8 g/dL (3.4-5.0); Alkaline Phosphatase 152 U/L (46-116); Anion Gap 7.8 mmol/L (3-11); BUN 12 mg/dL (7-18); Bilirubin, Total 0.5 mg/dL (0.2-1.0); CO2 27.2 mmol/L (21.0-32.0); Calcium 9.9 mg/dL (8.5-10.1); Chloride 102 mmol/L (98-107); Glucose 105 mg/dL (74-106); Potassium 4.4 mmol/L (3.5-5.1); Sodium 137 mmol/L (136-145); Total Protein 6.8 g/dL (6.4-8.2)
== END 2020-11-11 02:31 ==
PROVIDERS: PCP Nurse Practitioner Family; Visit Provider Internal Medicine Rheumatology
DX: M06.4 Inflammatory polyarthropathy (principal); Z79.899 Other long term (current) drug therapy
CPT/HCPCS: 36415; 80053; 85025; 86140

== ENCOUNTER 2020-11-22 01:56 | Outpatient (CLI) | payer MEDICAID, SELFPAY ==
[2020-11-23 15:17] LABS: COVID-19 RT-PCR UVMMC Result Negative (Negative)
== END 2020-11-22 01:57 | disposition home or self-care (01) ==
LOC: LBO 01:56
PROVIDERS: PCP Nurse Practitioner Family; Visit Provider Student in an Organized Health Care Education/Training Program
DX: Z20.822 Contact with and (suspected) exposure to COVID-19 (principal); Z01.818 Encounter for other preprocedural examination
CPT/HCPCS: U0003

== ENCOUNTER 2020-11-25 06:14 | Day surgery (SDC) | payer MEDICAID, SELFPAY ==
[2020-11-25] VITALS (11 sets, daily range): BP systolic 98–121; BP diastolic 42–79; PULSE 92–112; RESP 13–20; TEMP 36.6–37; O2SAT 93–97
[2020-11-25] MEDS: Lactated Ringers 1,000 ML 100 ML IV (07:25)
[2020-11-25] MEDS: ceFAZolin 2 GM/50 ML BAG IVPB (08:05)
[2020-11-25] MEDS: EPINEPHrine 30 MG/30 ML VIAL (12:34)
--- NOTE | 2020-11-25 13:24 | W.PM.DSUDISC ---
Discharge Plan Disposition Patient Disposition: HOME Condition: Stable Discharge Details Reason For Visit: Right shoulder surgery Attending Provider: Brigido Jose Primary Care Provider: Brandi Jacob Home Meds and New Rx's Prescriptions: New oxycodone 5 mg tablet 5 - 10 mg PO Q4H PRN (Reason: moderate to severe pain) Qty: 22 RF: 0 Continued methotrexate sodium 2.5 mg tablet 7.5 mg PO BID RF: 0 folic acid 1 mg tablet 1 mg PO DAILY RF: 0 zolpidem 6.25 MG tablet,ext release multiphase 6.25 mg PO PRN RF: 0 triamcinolone acetonide 0.1 % cream 1 applic TP BID RF: 0 omeprazole 10 mg capsule,delayed release(DR/EC) 40 mg PO DAILY RF: 0 lisinopril 30 mg tablet 30 mg PO DAILY RF: 0 valacyclovir 1 gram tablet 2,000 mg PO BID RF: 0 tamsulosin 0.4 mg capsule 0.8 mg PO DAILY RF: 0 nabumetone 750 mg Tablet 750 mg PO BID RF: 0 hydroxychloroquine 200 mg tablet 200 mg PO BID RF: 0 acetaminophen [Tylenol Extra Strength] 500 mg tablet 500 mg PO Q6H PRNQty: 90 RF: 0 aspirin 81 mg Tablet,Chewable 81 mg PO DAILY RF: 0 docusate sodium [Colace] 100 mg capsule 100 mg PO BID PRNQty: 10 RF: 0 Discontinued ibuprofen 600 mg tablet 600 mg PO TID PRN (Reason: pain) Qty: 90 RF: 3 Discharge Instructions Additional Instructions: Surgery: Shoulder arthroscopy with superior capsular reconstruction, rotator cuff repair, biceps tenodesis, extensive debridement, and subacromial decompression. Activity: You should keep your arm at your side in a neutral position at all times except for physical therapy. Do not try to lift or raise your arm using your own muscles. You should use the sling whenever you are out of the house. You may have to adjust the abduction pillow or remove it for comfort. At home it is best to remove the sling and rest the arm on a pillow at your side or support the operative side with your other hand. You may allow the arm to dangle at your side. A physical therapy prescription will be sent electronically to begin in 3 weeks. Prescriptions: Resume home aspirin 81 mg daily starting tomorrow Resume home nabumetone 750 mg twice daily as needed for arthritis/joint pain Oxycodone 5 mg take 1-2 every 4-6 hours as needed for severe pain You may use [id number] Tylenol (acetaminophen) as needed for mild pain. These pain medications may be taken all at once or in different combinations as needed. Also, recommend Colace (docusate) as a stool softener as surgery and pain medicine cause constipation. Dressings: Remove shoulder bandage after 3 days. Leave the sticky Steri-Strips in place until they fall off or remove them after you shower. Cover the incisions with Band-Aids or leave them open to air. You may shower after 5 days. Follow-up: 10-[address] Jose You may take off the leg compression stockings this evening at home. You may also leave them on a few days longer if you have a history of leg swelling or edema. Let us know right away if you develop any redness, drainage, fevers, chest pain, or trouble breathing. Do not drink alcohol or drive for at least 24 hours after anesthesia. Please call the office during business hours with any questions or concerns. Referrals: Brigido Jose MD [ [facility] STAFF PHYSICIAN] - Discharge Orders Discharge Orders: Discharge Order (Routine); Ordered 11/25/20 Ordered By: Brigido Jose DS: Diagnosis Discharge Diagnosis (1) Right rotator cuff tear arthropathy: Status: Acute (2) Bursitis of right shoulder: Status: Acute (3) Tendonitis of long head of biceps brachii of right shoulder: Status: Acute (4) Traumatic tear of right rotator cuff: Status: Acute
[2020-11-25] MEDS: fentaNYL 100 MCG/2 ML VIAL IVP ×3 (13:25→14:40)
--- NOTE | 2020-11-25 14:12 | ROE_ITS ---
Date of service: 11/25/20 Time of Service: 07:30 Operative Note Operative Note DATE OF PROCEDURE: 11/25/20 PRE-OP DIAGNOSIS: Right: 1. Chronic rotator cuff tear 2. LHB tendinopathy 3. Bursitis POST-OP DIAGNOSIS: same PROCEDURE: Right: 1. Superior capsular reconstruction, CPT # 31176: This involved allograft recontruction of the superior capsule with suture anchor fixation to the glenoid and greater tuberosity 2. Rotator cuff repair, CPT# 63828. This involved repair of the subscapularis using suture anchors to reattach the rotator cuff back to the footprint of the lesser tuberosity as well as [id number] suture repair the posterior aspect of the superior capsular reconstruction to the intact infraspinatus & teres minor. 3. Arthroscopic biceps tenodesis, CPT# 31864. This involved arthroscopically suturing and reattaching the long head of the biceps tendon to the proximal humerus at the superior margin of the bicipital groove with a screw at the correct tension. 4. Extensive debridement, CPT# 91803. This involved using arthroscopic hand instruments, power instruments, and radiofrequency instruments to release to release the long head of the biceps tendon and debride areas of labral tearing, synovitis, and chondromalacia about the biceps groove, loose cartilage flaps central posterior glenoid as well as rotator cuff remnant tissue over the greater tuberosity, and release contracted MGHL tissue within the glenohumeral joint anteriorly, superiorly and posteriorly. 5. Subacromial decompression, CPT# 66490. This involved using arthroscopic power instruments and a radiofrequency wand to complete a bursectomy The housekeeper and laundry assistant was medically required in order to help assist in techniques above, which require positioning the arm, holding the arthroscope, and manipulat ing multiple instruments and sutures at the same time. This cannot be done without the help of an experienced housekeeper and laundry assistant. SURGEON: Brigido Jose STAFF ANTISUBMARINE OFFICER: Cheryl Haynes ANESTHESIA: GETA and regional PATHOLOGY: none sent COMPLICATIONS: None Patient was transported to: PACU Patient's condition: stable Implants: Arthrex: 4.75mm SwiveLock x 5 and 3.9 mm knotless corkscrew x3 Indications: The patient was diagnosed with the above conditions and appropriately indicated for surgical intervention. Please see complete medical record for details. Findings: Exam under anesthesia: Full, symmetrical range of motion Glenohumeral joint: Moderate glenohumeral joint space narrowing chondromalacia. Most significant cartilage near full-thickness flaps unstable about 1 x 1 cm posterior central. Significant superior rotator cuff supraspinatus infraspinatus retraction. Significant full-thickness upper portion subscapularis rotator cuff tear with significant medial retraction and obvious comma sign and missing MGHL sign. Profound long head of the biceps tendon split tearing fraying throughout its intra-articular course with medial subluxation over the lesser tuberosity. Subacromial space: Intact far posterior inferior rotator cuff likely teres minor possibly inferior portion infraspinatus. Significant greater tuberosity rotator cuff remnant likely of supraspinatus. Rotator cuff anteriorly centrally and posteriorly retracted past the level of the glenoid with minimal excursion even after release past the glenoid. Significant bursitis throughout especially anterior laterally and posteriorly. Minimal subacromial bone spur given prior acromioplasty. Procedure Description: In the operating room, general anesthesia was induced. Bilateral shoulders were examined. The patient was positioned in the beachchair position. All bony prominences were well-padded. Preoperative antibiotics were administered. The shoulder was prepped and draped in the usual sterile fashion. The correct patient, procedure, and side of the procedure were all verified prior to incision. Starting through the posterior portal a standard complete diagnostic arthroscopy was performed of the glenohumeral joint including inspection of the long head of the biceps, anterior and superior labrum, subscapularis tendon, supraspinatus and infraspinatus tendons, and axillary recess. The glenoid and humeral head cartilage as well as the posterior labrum were inspected from an anterior viewing portal. Significant findings and interventions noted above. An anterior superior lateral portal and anterior portal was established under spinal needle localization. The biceps tendon intra-articularly was secured using loop-n-tach method with a suture tape fiber link. The biceps tendon was released from the superior labrum using arthroscopic scissors and retracted out the anterior superior lateral portal. The significant remnant tissue was debrided over the greater tuberosity as well as the superior and anterior labral tearing fraying. Arthroscopic scissors were used to release the image HL and bluntly debrided anterior and posterior to the retracted scarred subscapularis. Rotator cuff grasper was used to provisionally reduce the subscapularis to the lesser tuberosity. A self retrieving suture passer was then used to pass a fiber link in cinch mode in the upper lateral margin of subscapularis. This traction stitch was used to retract the subscapularis while a handoff technique was used to pass a fiber tape more centrally and lower in the subscapularis tendon body. The subscapularis sutures as well as the biceps tendon sutures we re brought out the anterior superior lateral portal. A punch was used to localize placement of suture anchor at the lesser tuberosity bicipital groove superior margin. The swivel lock was then loaded with the subscapularis sutures from medial to lateral in the bicep suture from lateral to medial and secured to bone with correct tension on both tendons. Starting through the posterior portal, the arthroscope was re-directed into the subacromial space. A lateral 50 yard line lateral portal was created. A combination of power instruments and a radiofrequency ablator were used to debride bursitis anteriorly, posteriorly, and laterally as well as expose and debride remnant tissue over the greater tuberosity as well as a thin layer of bone to establish optimal greater tuberosity footprint for healing. The coracoacromial ligament was preserved. The bursectomy was completed viewing laterally and working from posteriorly and the rotator cuff was thoroughly inspected with findings noted above. There was minimal excursion of the significant chronic retracted rotator cuff tendon superiorly and posterior superiorly. Decision was made to proceed with allograft dermis reconstruction. A 12 x 3 mm passport cannula was inserted laterally. The posterior superior lateral portal was then established an additional passport inserted here as well. Percutaneous stab portals were used to localize placement of 3 glenoid corkscrew knotless anchors at about the 1:30, 11:30, and 10 PM positions. The punch was then used to localize placement of 2 medial swivel lock anchors loaded with fiber tape. On the back table, the dermal allograft tissue was hydrated appropriately. The SCR measuring guide was measured dimensions of the allograft needed extending across the glenoid anchors, anterior posterior medial lateral margins as well as the medial footprint. An additional 10 mm of tissue was maintained in all margins to reduce chance of pullout as well as 15 mm laterally for coverage over the greater tuberosity to planned lateral row. The graft measured 30 mm over the glenoid with 35 mm medial to lateral anterior and posterior and 30 mm medial row anterior posterior. The punch was used to create medial row repair spaces. The fiber tape pairs were then brought through the graft using a BirdBeak. The graft was brought over the lateral shoulder maintained over [place]. Starting an teriorly the knotless corkscrew repair and looped link sutures were retrieved and the repair stitch was passed through the appropriate position on the graft and a horizontal mattress fashion using self retrieving suture passer and then passed back through the anchor using the looped end in the knotless technique. This was repeated for the middle and posterior glenoid anchor repair stitches. The passport cannula was then incised longitudinally to better accommodate this large graft. The pack grasper was used to provisionally line up the grafts in the cannula and sequential tensioning of the glenoid anchors used to remove slack. A Shay was then used to finally deliver the graft into the shoulder under direct visualization. Careful sequential tightening of the glenoid anchors deliver the graft into appropriate position. Provisional tightening was then completed on the glenoid anchors and the graft inspected found to be securely fixated to the plan positions anteriorly superiorly and posteriorly. The knot pusher was then used over the medial row fiber tapes to bring the graft down the greater tuberosity. The fiber tapes were then brought out the anterior superior lateral portal. Additional debridement of the far lateral bursa was then performed. A fiber tape from the anterior middle row anchor as well as the posterior middle row anchor was then brought out the lateral portal cannula which had been switched to a Mary. The punch was then used to localize placement of the anterior lateral row anchor, the tapes loaded through the anchor, and secured down to bone at the appropriate tension. This was repeated for the posterior lateral row anchor completing speed bridge repair of the graft over the greater tuberosity. The superior capsule reconstruction inspected found to be well secured medially and laterally with excellent coverage. The glenoid sutures were final tightened and cut. Attention was then turned posteriorly where there was a defect as expected between the graft and the intact posterior rotator cuff. The posterior stab portal was then extended and cannula inserted. Self retrieving suture passer was then used to pass a side to side repair stitch centrally and laterally between the graft and the intact rotator cuff tendon. SMC sliding locking knots and additional half hitches were used to secure the intact rotator cuff to the allograft reconstruction posteriorly. The rotator cuff repair anteriorly, posteriorly, biceps tenodesis, and superior capsular allograft reconstruction were all inspected through arm range of motion felt to be in excellent position and securely fixated. The shoulder was flushed with arthroscopic fluid until the effluent was clear. The shoulder was drained of arthroscopic fluid. All portal sites were copiously irrigated. These incisions were closed using 3-0 Monocryl in a buried fashion, covered with Mastisol, Steri-Strips, Xeroform, dry gauze, and ABDs. The dressings were covered and secured with Medipore tape. The operative extremity was placed into a sling for immobilization. The patient awoke from anesthesia without complication and was transferred to the recovery room in a stable condition.
[2020-11-25] MEDS: Refresh PLUS Eye Drops 0.4ml 1 EACH OU (14:25)
[2020-11-25] MEDS: Tetracaine 0.5% 4 ML BTL ×3 (14:52→15:02)
[2020-11-25] MEDS: oxyCODONE 5 MG TAB PO (15:21)
== END 2020-11-25 16:35 | disposition home or self-care (01) ==
PROVIDERS: PCP Nurse Practitioner Family; Visit Provider Student in an Organized Health Care Education/Training Program
PROC: (CPT 29827; principal; 2020-11-25 07:30)
DX: M75.121 Complete rotator cuff tear or rupture of right shoulder, not specified as traumatic (principal); M12.811 Other specific arthropathies, not elsewhere classified, right shoulder; M75.51 Bursitis of right shoulder; M75.21 Bicipital tendinitis, right shoulder; G89.18 Other acute postprocedural pain; K21.9 Gastro-esophageal reflux disease without esophagitis; G47.33 Obstructive sleep apnea (adult) (pediatric)
CPT/HCPCS: 29806; 29827; 29828; 29826; 29823; C1713; 76942; J0690; J1100; J1885; J2001; J2250; J2370; J2405; J2704; J3010

== ENCOUNTER 2021-01-03 11:37 | Outpatient (CLI) | payer MEDICAID, SELFPAY ==
--- NOTE | 2021-01-03 10:30 | DI.RAD_ITS ---
EXAM: XR KNEE LT 4V AP,LAT,LENNOX,PAT CLINICAL HISTORY: bilateral knee pain. TECHNIQUE: 2D digital imaging was performed. COMPARISON: CR XR RIBS LT W PA LAT CHEST from 08/17/2019 FINDINGS: There are degenerative changes seen in the left knee with joint space narrowing of the patellofemoral joint and periarticular spurring in the lateral femoral tibial joint. The bones are intact and norm ally mineralized no suspicious lytic or sclerotic lesions are seen. There is a small joint effusion. Vascular calcifications are present. IMPRESSION: Osteoarthritis of the left knee. DATA REPOSITORY: RADIATION DOSE DELIVERED:
--- NOTE | 2021-01-03 10:30 | DI.RAD_ITS ---
EXAM: XR KNEE RT 4V AP,LAT,LENNOX,PAT CLINICAL HISTORY: bilateral knee pain. TECHNIQUE: 2D digital imaging was performed. COMPARISON: CR XR KNEE LT 4V AP,LAT,LENNOX,PAT from 01/03/2021 FINDINGS: Tricompartment degenerative changes are seen in the right knee with joint space narrowing and periart icular spurring present. Findings are most marked at the patellofemoral joint. The bones are normal ly mineralized. No acute fracture or dislocation. No suspicious lytic or sclerotic lesions. Vascul ar calcifications are seen in the soft tissues which are otherwise unremarkable. IMPRESSION: Osteoarthritis of the right knee. DATA REPOSITORY: RADIATION DOSE DELIVERED:
== END 2021-01-03 11:38 | disposition home or self-care (01) ==
LOC: DIORS 11:37
PROVIDERS: PCP Nurse Practitioner Family; Visit Provider Physician Assistant
DX: M17.0 Bilateral primary osteoarthritis of knee (principal)
CPT/HCPCS: 73564

== ENCOUNTER 2021-01-05 02:59 | Outpatient (CLI) | payer MEDICAID, SELFPAY ==
[2021-01-05 14:37] LABS: Abs Immature Grans 0.05 10^3/uL (0.0-0.06); Absolute Basophil Count 0.05 10^3/uL (0.0-0.2); Absolute Eosinophil Count 0.15 10^3/uL (0.0-0.7); Absolute Lymphocyte Count 1.38 10^3/uL (1.2-3.4); Absolute Monocyte Count 0.68 10^3/uL (0.1-0.8); Absolute Neutrophil Count 4.96 10^3/uL (1.2-6.7); Basophils % 0.7; Eosinophils % 2.1; HCT 39.9 % (40.0-50.0); HGB 13.4 g/dL (13.5-17.5); Immature Grans % 0.7; MCH 32.8 pg (27.0-33.0); MCHC 33.6 % (32.0-36.0); MCV 97.6 fL (80-95); MPV 8.5 fL (8.0-11.0); Monocytes % 9.4; Neutrophils % 68.1; Nucleated RBC 0 %; Platelet Count 307 10^3/uL (130-400); RBC 4.09 10^6/uL (4.36-5.78); RDW 13.7 % (11.8-14.1); RDW-SD 48.7 fL; WBC 7.27 10^3/uL (4.4-10.8)
[2021-01-05 16:30] LABS: ALT 24 U/L (16-63); AST 17 U/L (15-37); Alkaline Phosphatase 115 U/L (46-116); Anion Gap 10.4 mmol/L (3-11); BUN 16 mg/dL (7-18); Bilirubin, Total 0.5 mg/dL (0.2-1.0); CO2 26.6 mmol/L (21.0-32.0); CREATININE 0.9 mg/dL (0.70-1.30); Calcium 9.5 mg/dL (8.5-10.1); Chloride 105 mmol/L (98-107); Glucose 93 mg/dL (74-106); Potassium 4.1 mmol/L (3.5-5.1); Sodium 142 mmol/L (136-145); Total Protein 6.9 g/dL (6.4-8.2)
[2021-01-05 17:26] LABS: Vitamin B12 491 pg/mL (193-986)
[2021-01-05 17:50] LABS: C-Reactive Protein 0.22 mg/dL (0.0-0.3)
== END 2021-01-05 03:00 | disposition home or self-care (01) ==
LOC: LBO 02:59
PROVIDERS: PCP Nurse Practitioner Family; Visit Provider Internal Medicine Rheumatology
DX: D75.89 Other specified diseases of blood and blood-forming organs (principal); E53.8 Deficiency of other specified B group vitamins; Z79.899 Other long term (current) drug therapy; M06.4 Inflammatory polyarthropathy
CPT/HCPCS: 36415; 80053; 82607; 85025; 86140

== ENCOUNTER 2021-03-03 03:16 | Outpatient (CLI) | payer MEDICAID, SELFPAY ==
[2021-03-03 08:12] LABS: HCT 39.9 % (40.0-50.0); HGB 13.6 g/dL (13.5-17.5); MCH 32.5 pg (27.0-33.0); MCHC 34.1 % (32.0-36.0); MCV 95.2 fL (80-95); MPV 8.4 fL (8.0-11.0); Platelet Count 301 10^3/uL (130-400); RBC 4.19 10^6/uL (4.36-5.78); RDW 13.5 % (11.8-14.1); RDW-SD 47.2 fL; WBC 4.54 10^3/uL (4.4-10.8)
[2021-03-03 09:18] LABS: BUN 8 mg/dL (7-18); CREATININE 0.8 mg/dL (0.70-1.30); Calcium 9.1 mg/dL (8.5-10.1); Chloride 105 mmol/L (98-107); Glucose 85 mg/dL (74-106); Potassium 4.2 mmol/L (3.5-5.1); Sodium 142 mmol/L (136-145)
== END 2021-03-03 03:17 | disposition home or self-care (01) ==
LOC: LBO 03:16
PROVIDERS: PCP Nurse Practitioner Family; Visit Provider Student in an Organized Health Care Education/Training Program
DX: M25.561 Pain in right knee (principal); M25.562 Pain in left knee; M17.0 Bilateral primary osteoarthritis of knee; Z01.818 Encounter for other preprocedural examination; Z01.812 Encounter for preprocedural laboratory examination
CPT/HCPCS: 36415; 80048; 85027; 86850; 86900; 86901

== ENCOUNTER 2021-03-03 09:57 | Outpatient (CLI) | payer MEDICAID, SELFPAY ==
--- NOTE | 2021-03-03 08:45 | DI.RAD_ITS ---
Exam(s) XR KNEE LT 1V XR STANDING ALIGNMENT XR KNEE RT 1V EXAM: XR STANDING ALIGNMENT CLINICAL HISTORY: PRE OP BILAT TKA TECHNIQUE: COMPARISON: CR XR KNEE LT 1V from 03/03/2021 CR XR KNEE RT 1V from 03/03/2021 FINDINGS: Standing alignment views were obtained along with bilateral lateral views of the knees. There is a r ight hip prosthesis in position. There are mild to moderate degenerative changes involving all 3 manisha nts of both knees. There is an old healed tibiofibular fracture on the right involving distal diaphy seal metaphyseal junctions. IMPRESSION: RADIATION DOSE DELIVERED: Total DLP
== END 2021-03-03 09:58 | disposition home or self-care (01) ==
LOC: DIORS 09:58
PROVIDERS: PCP Nurse Practitioner Family; Referring Provider Nurse Practitioner Family; Visit Provider Physician Assistant
DX: M17.0 Bilateral primary osteoarthritis of knee (principal); Z96.641 Presence of right artificial hip joint
CPT/HCPCS: 73560; 77073

== ENCOUNTER 2021-03-06 01:58 | Outpatient (CLI) | payer MEDICAID, SELFPAY ==
[2021-03-06 11:40] LABS: Source Nasal/Nares
[2021-03-06 14:48] LABS: COVID-19 PCR Negative (Negative)
== END 2021-03-06 01:59 | disposition home or self-care (01) ==
LOC: LBO 01:58
PROVIDERS: PCP Nurse Practitioner Family; Visit Provider Student in an Organized Health Care Education/Training Program
DX: Z20.822 Contact with and (suspected) exposure to COVID-19 (principal); Z01.818 Encounter for other preprocedural examination
CPT/HCPCS: 87635

== ENCOUNTER 2021-03-08 06:12 | Inpatient (IN) | payer MEDICAID, SELFPAY ==
[2021-03-08] VITALS (10 sets, daily range): BP systolic 97–125; BP diastolic 64–91; PULSE 68–100; RESP 15–18; TEMP 36–37.2; TEMPC 36.1; O2SAT 92–99; BMI 35.4
[2021-03-08] MEDS: Gabapentin 300 MG CAP PO (06:30)
[2021-03-08] MEDS: Celecoxib 200 MG CAP 400 MG PO (06:30)
[2021-03-08] MEDS: Acetaminophen 500 MG TAB 1000 MG PO ×2 (06:30→12:59)
[2021-03-08] MEDS: Lactated Ringers 1,000 ML 80 ML IV ×2 (06:31→11:40)
--- NOTE | 2021-03-08 06:56 | ANES.PREOP_ITS ---
General Info Date of Service Date Performed: 03/08/21 Height: 5 ft 7 in Weight: 102.8 kg Body Mass Index (BMI): 35.4 Surgical Procedure: Operation Date: 03/08/21 07:50 Proposed Procedures Side Surgeon p Knee Total Arthroplasty Bilateral Fabricio Lofton MD Meds Allergies and Home Medications Allergies Allergy/AdvReac Type Severity Reaction Status Date / Time No Known Allergies Allergy Verified 03/08/21 05:54 Home Medication Medication Instructions Recorded zolpidem 6.25 mg PO PRN 12/07/15 omeprazole 10 mg capsule,delayed 40 mg PO DAILY cap 12/17/19 release triamcinolone acetonide 0.1 % 1 applic TP BID PRN 12/17/19 topical cream lisinopril 30 mg tablet 30 mg PO DAILY 07/01/20 folic acid 1 mg tablet 1 mg PO DAILY 07/12/20 tamsulosin 0.4 mg capsule 0.8 mg PO DAILY cap 08/08/20 hydroxychloroquine 200 mg PO BID 09/26/20 acetaminophen [Tylenol Extra 500 mg PO Q6H PRN #90 tab 10/19/20 Strength] aspirin 81 mg PO DAILY 10/19/20 docusate sodium [Colace] 100 mg PO BID PRN #10 cap 10/19/20 nabumetone 750 mg PO BID 11/25/20 mirabegron 25 mg tablet,extended 25 mg PO DAILY #90 tab 02/07/21 release 24 hr valacyclovir 1 gram tablet 2,000 mg PO Q12H PRN tab 02/22/21 cholecalciferol (vitamin D3) 125 125 mcg PO DAILY 03/03/21 mcg (5,000 unit) capsule cyanocobalamin (vitamin B-12) 1 tab PO DAILY 03/03/21 [Vitamin B-12] methotrexate sodium 10 mg tablet 15 mg PO QWEEK tab 03/03/21 Current Visit Medications: Current Medications Generic Name Dose Route Start Last Admin Trade Name Freq PRN Reason Stop Dose Admin Acetaminophen 1,000 mg 03/08/21 06:00 03/08/21 06:30 Acetaminophen 500 Mg Tab PO 1,000 mg PREOP HORTENCIA Administration Celecoxib 400 mg 03/08/21 06:00 03/08/21 06:30 Celecoxib 200 Mg Cap PO 400 mg PREOP HORTENCIA Administration Gabapentin 300 mg 03/08/21 06:00 03/08/21 06:30 Gabapentin 300 Mg Cap PO 300 mg PREOP HORTENCIA Administration Ringer's Solution 1,000 mls @ 80 mls/hr 03/08/21 06:00 03/08/21 06:31 IV 04/06/21 23:59 80 mls/hr INFUSION HORTENCIA Administration Cefazolin Sodium/Dextrose 2 gm in 50 mls @ 100 mls/hr 03/08/21 06:00 Ancef Duplex IVPB 03/08/21 16:00 PREOP HORTENCIA Tranexamic Acid 1,000 mg/ 60 mls @ 360 mls/hr 03/08/21 06:00 Sodium Chloride IVPB 03/08/21 16:00 PREOP HORTENCIA Tranexamic Acid 1,000 mg/ 60 mls @ 360 mls/hr 03/08/21 06:00 Sodium Chloride IVPB 03/08/21 16:00 DIRECTED HORTENCIA IV Miscellaneous Supplies 1 each 03/08/21 06:00 Iv Access IV 04/06/21 23:59 DIRECTED HORTENCIA Sodium Chloride 0 ml 03/08/21 06:00 Normal Saline Flush 10 Ml Syr IV 04/06/21 23:59 PRN PRN Sodium Chloride 0 ml 03/08/21 06:00 Normal Saline 10 Ml Vial IJ 04/06/21 23:59 DIRECTED PRN Sterile Water 0 ml 03/08/21 06:00 Water,Injection,Sterile 10 Ml Vial IJ 04/06/21 23:59 DIRECTED PRN PFSH Active Problems Active Problems: Problem Status Onset Code Right wrist sprain S63.501A Osteoarthritis of right hip M16.11 Right rotator cuff tear arthropathy M75.101, M12.811 Complete tear of right rotator cuff M75.121 History of total right hip replacement 10/19/20 Z96.641 Traumatic tear of right rotator cuff S46.011A Tendonitis of long head of biceps brachii of right shoulder M75.21 Bursitis of right shoulder M75.51 S/P right rotator cuff repair Z98.890 Hx of urinary frequency Z87.898 Degenerative joint disease of right knee M17.11 Left knee DJD M17.12 Hernia, inguinal K40.90 HTN (hypertension) I10 Tachycardia R00.[address] scan of head R93.0 Transient visual loss H53.129 Medical History Medical History Abnormal CT scan of head Benign prostatic hypertrophy without urinary obstruction Blind left eye BPH (benign prostatic hyperplasia) Cataract, congenital 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 reports foot was put back on above the ankle Arthroplasty of knee Right knee was not a knee replacement History of surgery on arm L, bone lengthened History of surgery on left wrist History of umbilical hernia repair Hx of knee surgery Rotator Cuff Repair Left S/P inguinal hernia repair using synthetic patch (~09/28/20) Status post hip replacement right Tobacco Smoking/Tobacco Use Status: Former Tobacco Use Alcohol Alcohol Intake: former Substance Use Substance use: Never Substance use type: does not use Details: no alcohol or tobacco for 20 years Vital Signs and Lab Results Vital Signs Most Recent Vital Signs in EMR: Most Recent Vital Signs Temp Pulse Resp BP Pulse Ox 37.2 C 100 H 18 125/91 H 97 03/08/21 06:10 03/08/21 06:10 03/08/21 06:10 03/08/21 06:10 03/08/21 06:10 Lab Results Blood Type / Crossmatch: Patient ABO/Rh O Positive 03/03/21 08:00 03/03/21 Antibody Screen Negative 03/03/21 08:00 03/03/21 Complete Blood Count: White Blood Count 4.54 10^3/uL (4.4-10.8) 03/03/21 08:00 03/03/21 Red Blood Count 4.19 10^6/uL (4.36-5.78) L 03/03/21 08:00 03/03/21 Hemoglobin 13.6 g/dL (13.5-17.5) 03/03/21 08:00 03/03/21 Hematocrit 39.9 % (40.0-50.0) L 03/03/21 08:00 03/03/21 Platelet Count 301 10^3/uL (130-400) 03/03/21 08:00 03/03/21 Complete Metabolic Panel: Sodium Level 142 mmol/L (136-145) 03/03/21 08:00 03/03/21 Potassium Level 4.2 mmol/L (3.5-5.1) 03/03/21 08:00 03/03/21 Chloride Level 105 mmol/L (98-107) 03/03/21 08:00 03/03/21 Carbon Dioxide Level 24.0 mmol/L (21.0-32.0) 03/03/21 08:00 03/03/21 Blood Urea Nitrogen 8 mg/dL (7-18) 03/03/21 08:00 03/03/21 Creatinine 0.8 mg/dL (0.70-1.30) 03/03/21 08:00 03/03/21 Calcium Level 9.1 mg/dL (8.5-10.1) 03/03/21 08:00 03/03/21 Glucose Level 85 mg/dL (74-106) 03/03/21 08:00 03/03/21 Liver Function Panel: No Data to Display Coagulation Panel: No Data to Display Cardiac Panel: No Data to Display Arterial Blood Gas: No Data to Display Venous Blood Gas: No Data to Display Pancreas Panel: No Data to Display Thyroid Panel: No Data to Display Infectious Disease: Coronavirus (COVID-19)(PCR) Negative (Negative) 03/06/21 10:17 03/06/21 Coronavirus 2019 Source Nasal/nares 03/06/21 10:17 03/06/21 Blood Cultures: No Data to Display Toxicology Panel: No Data to Display Imaging and Studies Imaging and Studies EKG Summary: Exam: Resting ECG Patient Location: O HR:94 bpm ECG Measurements Heart Rate [address] 134 P 45 QRSd 79 QRS -10 QT 322 T50 QTc 403 Conclusion Sinus rhythm...normal P axis, V-rate 60- 99 Normal Electrocardiogram Echocardiogram Summary: 05/03/2020 EXAM: Comprehensive 2D, Doppler, and color-flow Echocardiogram Patient Location: Out-Patient Ping Pong Table Assembler: Kesha Nick RDCS (AE) Indications: CVA Other Information Study Quality: Good Conclusion Left Ventricle : The left ventricle is normal size. The left ventricular systolic function is normal. The left ventricular ejection fraction is within the normal range. There is normal left ventricular wall thickness. There is normal LV segmental wall motion. The left ventricular diastolic function is normal. LVEF is 55-60%. Right Ventricle : The right ventricle is normal size. The right ventricular sys tolic function is normal. The RVSP is 23 mmHg. Atria : The left atrium size is normal. The right atrium size is normal. The interatrial septum is intact with no evidence for an atrial septal defect (this was not a bubble study). Valves: There are no hemodynamically significant valvular lesions. Great Vessels : The ascending aorta is normal in size. Aortic arch is normal in caliber. IVC is normal in size and collapses >50% with inspiration. There is no prior study available for comparison. Carotid Artery Summary:: 01/15/2020 EXAM: US CAROTID CLINICAL HISTORY: transient vision loss,H53.129. TECHNIQUE: Ultrasound carotids performed using grayscale, color-flow, and spectral Doppler imaging. COMPARISON: No exams were available for comparison FINDINGS: RIGHT CAROTID ARTERY: Plaque: Minimal. Velocity elevation: None. LEFT CAROTID ARTERY: Plaque: Mild calcific plaque at the left common carotid bulb and proximal left internal carotid artery. The left mid internal carotid artery is mildly tortuous. Velocity elevation: None. VERTEBRAL ARTERIES: Antegrade flow. Anesthesia Assessment and Plan Anesthesia History Personal History: No History of Anesthesia Complications Family History: No Family History of Anesthesia Complications Exercise Tolerance Exercise Tolerance: Metabolic Equivalents>4 Pertinent Negatives Pertinent Negatives: No Symptoms of GERD (Current), No Major Cardiovascular Symptoms or Complaints and No Major Pulmonary Symptoms or Complaints Cardiac & Pulmonary Exam Cardiac Exam: Normal S1/S2 Heart Sounds Pulmonary Exam: Clear Bilateral Breath Sounds Airway Exam Known Difficult Airway: No Mallampati Class: 2 Mouth Opening: Normal (> 3cm) Thyromental Distance: Greater than 3 cm Neck Range of Motion: Full ROM Neck Circumference: Normal Teeth Condition: Normal Dentition and Removable Dentures/Plates Upper ASA Classification ASA Score: ASA 3 Emergency Case?: No NPO Status NPO Status: NPO Clears >2 hours, Solids >8 hours Anesthesia Plan Resuscitation Status: Full Code Anesthesia Technique: Spinal Anesthesia Airway Planned: Natural Airway Pain Management: Surgeon and patient request nerve block Monitors Used: Standard Monitors
[2021-03-08] MEDS: ceFAZolin 2 GM/50 ML BAG IVPB (08:08)
--- NOTE | 2021-03-08 09:26 | W.ANESNERVE ---
Nerve Block Single Injection Procedure Date and Time Date Performed: 03/08/21 Procedure Start: 07:40 Location Where Procedure Performed Procedure Location: PACU Reason Performed: Postoperative Analgesia Requesting Provider: Fabricio Lofton Timeout Performed Timeout Performed: Yes Monitoring Used ECG, Blood Pressure and SpO2 Sterility Sterility: Hand Hygiene, Surgical Cap, Surgical Mask, Sterile Gloves and Chlorhexidine Sedation Given During Procedure Sedation Given (Indicate Dose Given): No Sedation given Patient Mental Status Patient Mental Status: Awake Nerve Block 1st Nerve Block: Laterality: Bilateral Block Type: Adductor Canal Needle / Catheter Used: 100mm SonoPlex II Local Anesthetic Bolus (Indicate Dose Given): Lidocaine used for local infiltration of skin, Injected in 3-5ml increments after negative blood aspiration, Half of Total block solution given into each side and Bupivacaine 0.25% Dose:: 20 ml Additives (Indicate Dose Given): None Ultrasound: Sterile probe cover and gel used Ultrasound Image Saved?: Yes Nerve Stimulator: Not Used Paresthesia: None Post Procedure Pain score (0-10): 0 Procedure Tolerated: No Complications and Patient tolerated well Procedure Outcome: Successful Performed By: Jorge Sotomayor
[2021-03-08] MEDS: Normal Saline 20 ML VIAL (10:32)
[2021-03-08] MEDS: Bupivacaine 0.25% Pres-Free 30 ML VIAL (10:33)
[2021-03-08] MEDS: Ketorolac 30 MG/ML VIAL (10:33)
--- NOTE | 2021-03-08 11:25 | W.ANESPOSTOP ---
Postoperative Evaluation Date, Time and Location Date Performed: 03/08/21 Time Performed: Patient Location: PACU Vital Signs Most Recent Imported Vital Signs: Most Recent Vital Signs Temp Pulse Resp BP Pulse Ox 36.3 C L 68 17 117/68 98 03/08/21 11:00 03/08/21 11:00 03/08/21 11:00 03/08/21 11:00 03/08/21 11:00 Most Recent Manually Entered Vital Signs: Adult Blood Pressure: 116/64 Heart Rate: 69 Respirations: 16 Oxygen Saturation (%): 98 Temperature (C): 36.1 C Pain Score (0-10 Scale): 0 Pain Score Most Recent Pain Score: Most Recent Pain Score Pain Level 0 03/08/21 11:00 Assessment Mental Status: Awake (Alert & Oriented to Patient Baseline) Airway and Respiratory Function: Patent airway with normal (patient baseline) respiratory exam Cardiovascular Function: Hemodynamically Stable Hydration Status: Adequately Hydrated Nausea & Vomiting: No Nausea or Vomiting Pain: Pt. Denies Any Pain Peripheral Nerve Block: Regional nerve block not resolved at time of post operative discharge
[2021-03-08] MEDS: oxyCODONE 5 MG TAB PO ×2 (13:54→17:12)
[2021-03-08] MEDS: ceFAZolin 1 GM/50 ML BAG IVPB (13:55)
--- NOTE | 2021-03-08 15:32 | PT.INIE ---
Date of service: 03/08/21 Time of Service: 13:38 PT Notes Physical Therapy Inpatient Initial Evaluation Date: 03/08/2021 Referring Doctor: CARLITA Sheridan PT Orders: PT CONSULT: Eval/treat Precautions: Fall. Standard. WBAT on BLE with AD. Patient Profile/Admitting Diagnosis: Eduardo is a 60-year-old male with degenerative joint disease of both knees and is status post bilateral total knee arthroplasty on postoperative day 0. PMHX: Medical History? Abnormal CT scan of head Benign prostatic hypertrophy without urinary obstruction Blind left eye BPH (benign prostatic hyperplasia) Cataract, congenital Congenital cataract of left eye Degenerative joint disease of right knee Dental infection Diverticulosis Diverticulosis GERD (gastroesophageal reflux disease) H/O sudden visual loss Hernia, inguinal surgery 09/28/20 Hernia, umbilical repaired 12/26/18, Dr Cheryl Mcdaniel, [facility]HHerpes labialis cold soresHip pain, right HTN (hypertension) Hx of rheumatoid arthritis pt. 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 Ankle surgery pt. reports foot was put back on above the ankle Arthroplasty of knee Right knee was not a knee replacementHistory of surgery on arm L, bone lengthened History of surgery on left wrist History of umbilical hernia repair Hx of knee surgery Rotator Cuff Repair LeftS/P inguinal hernia repair using synthetic patch (~09/28/20) Social History/Home Situation: Lives with in a private home with 2 steps to enter with 1 rail. Independent with prior level of function without a need for an assistive ambulatory device nor adaptive equipment. Equipment Owned/DME: Front wheeled walker Subjective: Complained of 8/10 pain in bilateral knees and thankful that nurse Tiffanie was able to give his medication before walking with therapy. Hopeful about being able to leave and go back home today once cleared by orthopedic surgeon. Objective: General Observation: Hai wraps to bilateral legs. Cryo/Cuff to bilateral knees Mental Status: Alert and oriented as to person, place, time, and purpose. Able to pay attention, focus, and respond appropriately. Pain: 8/10 in B knees ROM: Right Upper Extremity: Shoulder Flexion WFL. Shoulder abduction WFL. Shoulder ER/IR WFL. Elbow flexion WFL. Forearm pronation/supination WFL. Wrist flexion WFL. Opening and closing of hand WFL. Left Upper Extremity: Shoulder Flexion WFL. Shoulder abduction WFL. Shoulder ER/IR WFL. Elbow flexion WFL. Forearm pronation/supination WFL. Wrist flexion WFL. Opening and closing of hand WFL. Right Lower Extremity: Hip flexion WFL. Hip abduction WFL. Hip ER/IR WFL. Knee flexion 10 degrees to 90 degrees actively. Knee extension -10 degrees actively. Ankle dorsiflexion/eversion WFL. Ankle plantarflexion/inversion WFL. Left Lower Extremity: Hip flexion WFL. Hip abduction WFL. Hip ER/IR WFL. Knee flexion 10 degrees to 90 degrees actively. Knee extension -10 degrees actively. Ankle dorsiflexion/eversion WFL. Ankle plantarflexion/inversion WFL. Strength: Right Upper Extremity: Shoulder flexors 5/5. Shoulder abductors 5/5. Shoulder ER 5/5. Shoulder IR 5/5. Forearm pronators 5/5. Forearm supinators 5/5. Elbow flexors 5/5. Elbow extensors 5/5. It Business Systems Analyst strong. Left Upper Extremity: Shoulder flexors 5/5. Shoulder abductors 5/5. Shoulder ER 5/5/ Shoulder IR 5/5. Forearm pronators 5/5. Forearm supinators 5/5. Elbow flexors 5/5. Elbow extensors 5/5. It Business Systems Analyst strong. Right Lower Extremity: Hip flexors 4/5. Hip abductors 4/5. Hip external rotators 4/5. Hip internal rotators 4/5. Knee flexors 3-/5. Knee extensors 3-/5. Ankle dorsiflexors/evertors 4/5. Ankle plantarflexors/invertors 5/5. Left Lower Extremity: Hip flexors 4/5. Hip abductors 4/5. Hip external rotators 4/5. Hip internal rotators 4/5. Knee flexors 3-/5. Knee extensors 3-/5. Ankle dorsiflexors/evertors 4/5. Ankle plantarflexors/invertors 5/5. Bed Mobility/Transfers: Rolling standby assist Supine to sit standby assist Sit to supine standby assist Sit to stand standby assist Stand to sit standby assist Bed to chair standby assist Chair to bed standby assist Gait: Guided patient through level surface ambulation of 250 feet using front wheeled walker with a wide-based gait and decreased flexion in bilateral knees step through gait pattern with report of 8/10 pain. Normal verbal cues given to increase knee flexion and assume optimal posture of trunk. Stairs: During the second session in the afternoon patient requested stair negotiation training so that he can hopefully go home. Patient was able to negotiate six 4 inch steps and four 6 inch steps while holding onto 1 rail with 8/10 pain in bilateral knees using step-to gait pattern requiring standby assist. Balance: Static Sitting: Normal Dynamic Sitting: Normal Static Standing: Good Dynamic Standing: Fair Special Tests: Mobility Limitations Standardized Measure [facility] AM-PAC 6 clicks Basic Mobility Inpatient Short Form: Raw Score: 23 CMS Score: 11% deficit Informed Consent/Education: Patient instructed in purpose of PT consult and plan of care. Agreeable to proceed with established PT POC to achieve personal goals. Educated and trained patient on home exercise program with patient demonstrating good understanding of correct techniques. He was given a written copy with instructions and visual representation of exercise performance to maximize compliance and ensure accuracy of exercise performance at home. Assessment: Patient only required standby assist for all mobility ADL performance using his front wheeled walker with minimal verbal cueing provided to ensure the safest gait pattern and maximize safe walker management. Patient was informed that overnight admission to the hospital may be needed in order to establish good pain control prior to discharge . However, patient was really strongly pushing to go home. Nurse and orthopedic surgeon informed about patient's request. Patient presents with clinical signs and symptoms consistent with current/admitting diagnoses that have resulted to mobility limitations, gait instability, generalized weakness, and impairment of motor control as demonstrated by the following impairment level findings: 1. Decreased strength to B knee major muscle groups 2. Impaired sitting/standing balance 3. Impaired activity tolerance 4. Limitation of joint range of motion in the knees Impairments are contributing to the following functional limitations: 1. Inability to safely ambulate without assistive device 2. Increase completion time for mobility ADL performance 3. Increased fall risk Patient is assessed as a 09531 moderate complexity based on the following: History: 60-year-old male with past medical history as indicated above Examination: Demonstrable impairment in strength, balance, and mobility level with underlying impairments and functional limitations as exhibited above as well as deficit score of 11% utilizing the [facility] Mobility Inpatient Short Form Presentation: Evolving Decision Makin moderate complexity Goals: N/A PT evaluation and 2 treatment sessions only for HEP instruction and mobility ADL retraining prior to discharge. Plan of Care/Treatment Plan: N/A PT evaluation and 2 treatment sessions only for HEP instruction and mobility ADL retraining prior to discharge. DISCHARGE RECOMMENDATIONS: Patient will benefit from home health PT services in order to progress mobility level using least restrictive assistive ambulatory device, assess home safety, identify additional equipment needs, and establish a functional maintenance program that will increase ability of patient to remain at home. TREATMENT CODE/TIME: PT eval and treatment session -- [id number] x 25 minutes, [id number] x 15 minutes, [id number] 0 x 10 minutes beginning at 13:38 PM. 2nd treatment session --[id number] x 32 minutes beginning at 15:32 PM. Thank you for the opportunity to participate in the care of this patient. Shanti Wong PT, DPT, CLT [facility] [place], [place]
--- NOTE | 2021-03-08 15:43 | DSE_ITS ---
Documented by User: CARLITA Sheridan 03/08/21 15:51 Date of service: 03/08/21 DS: Diagnosis Discharge Diagnosis (1) History of total bilateral knee replacement (TKR): Status: Acute Discharge Plan Disposition Patient Disposition: HOME Condition: Good Discharge Details Reason For Visit: B/L TKA Admit Date/Time: 03/08/21 06:12 Admit Provider: Fabricio Lofton Attending Provider: Fabricio Lofton Primary Care Provider: Brandi Jacob Hospital Course Hospital Course: Patient was admitted to the medical/surgical floor following the procedure. The surgery was tolerated well without any notable medical, surgical, or anesthetic complications. Mobilization began postoperatively. He was voiding spontaneously. Vitals were stable. Physical therapy worked with the patient and was cleared for discharge home. No acute medical issues. Pain was controlled on oral regimen of 10mg Oxycodone. Home Meds and New Rx's Prescriptions: New acetaminophen 500 mg capsule 1,000 mg PO Q8H PRN PRNQty: 90 RF: 0 aspirin 81 mg tablet,delayed release (DR/EC) 81 mg PO BID Qty: 60 RF: 0 celecoxib 200 mg capsule 200 mg PO BID Qty: 60 RF: 0 gabapentin 300 mg capsule 300 mg PO QHS Qty: 14 RF: 0 oxycodone 10 mg tablet 10 mg PO Q4H PRNQty: 14 RF: 0 Continued Myrbetriq 25 mg tablet extended release 24 hr 25 mg PO DAILY Qty: 90 RF: 4 folic acid 1 mg tablet 1 mg PO DAILY RF: 0 cholecalciferol (vitamin D3) 125 mcg (5,000 unit) capsule 125 mcg PO DAILY RF: 0 zolpidem 6.25 MG tablet,ext release multiphase 6.25 mg PO PRN RF: 0 triamcinolone acetonide 0.1 % cream 1 applic TP BID PRNRF: 0 omeprazole 10 mg capsule,delayed release(DR/EC) 40 mg PO DAILY RF: 0 lisinopril 30 mg tablet 30 mg PO DAILY RF: 0 valacyclovir 1 gram tablet 2,000 mg PO Q12H PRNRF: 0 methotrexate sodium 10 mg tablet 15 mg PO QWEEK RF: 0 tamsulosin 0.4 mg capsule 0.8 mg PO DAILY RF: 0 nabumetone 750 mg Tablet 750 mg PO BID RF: 0 cyanocobalamin (vitamin B-12) Tablet,Chewable 1 tab PO DAILY RF: 0 hydroxychloroquine 200 mg tablet 200 mg PO BID RF: 0 docusate sodium [Colace] 100 mg capsule 100 mg PO BID PRNQty: 10 RF: 0 Discontinued acetaminophen [Tylenol Extra Strength] 500 mg tablet 500 mg PO Q6H PRNQty: 90 RF: 0 aspirin 81 mg Tablet,Chewable 81 mg PO DAILY RF: 0 Discharge Instructions Additional Instructions: Total Knee Discharge Instructions Activity: The most important activity is to walk. You should try to take short walks a few times a day. It is important that when resting you work on keeping the knee straight. Avoid putting a pillow behind the knee as this will encourage flexion. Work on range of motion exercises as provided by Physical Therapy. - Start outpatient physical therapy within 2 weeks. - You should wear the GAIL hose on both legs for 2 weeks. You may remove these at night. You may also use any compression sock in place of the GAIL hose. Dressing: You may remove the Hai wrap on your leg 2 days after your surgery and put on the GAIL stocking given to you from the hospital. Keep the surgical dressing (underneath the HAI wrap) in place for at least one week. After the first week it may be removed and replaced with light gauze and tape or nothing. The wound and dressing may get wet after 3 days but avoid soaking the dressing or otherwise it will need to be changed. Many people prefer covering the dressing with cling wrap (saran wrap) to minimize it from getting soaked. If it gets wet, just pat dry. If it starts to peel off then it will need to be changed. Medications: - You should take Tylenol and anti-inflammatory Celebrex as your primary pain control medications. If the Celebrex is too expensive or not covered, please call the office for another alternative (Advil/Ibuprofen or Naproxen/Aleve) - You have been prescribed a stronger pain medication Oxycodone for breakthrough pain, take as needed as prescribed. - You have been prescribed Gabapentin to take at night for restlessness and nerve pain. - You will be taking Aspirin 81mg twice a day for DVT prevention unless instructed otherwise. - If you have constipation you should take Colace or Miralax (both [id number]). It takes most people 3-4 days to have a bowel movement. Follow-up: 2 weeks If you have any acute concerns or questions, please do not hesitate to contact the office at [phone]. You may contact Dr. Lofton with any questions after hours through the hospital at [phone] or on his cell phone at [phone]. Referrals: Fabricio Lofton MD [ [facility] STAFF PHYSICIAN] - Activity:: Activity as Tolerated Equipment/Supplies:: Walker Diet:: As Tolerated Discharge Orders Discharge Orders: Discharge Order (Routine); Ordered 03/08/21 Ordered By: Fabricio Lofton DS: Data Vitals/I&O Vitals and I&O: Vital Signs Temperature 97.0 F L 03/08/21 13:08 Temperature Source Tympanic 03/08/21 13:08 Pulse 79 03/08/21 13:08 Pulse Rhythm Regular 03/08/21 06:10 Respiratory Rate 18 03/08/21 13:08 Respiratory Depth Normal 03/08/21 06:10 Blood Pressure 112/83 03/08/21 13:08 Pulse Oximetry 92 03/08/21 13:08 Respiratory End-tidal CO2 31 03/08/21 11:40 Oxygen Delivery Method Room Air 03/08/21 13:08 Oxygen Flow Rate 0 03/08/21 13:08 Pain Level 2 03/08/21 15:27 Comment 03/08/21 12:09 Intake & Output 03/07/21 03/08/21 03/08/21 18:59 06:59 18:59 Intake Total 1098.667 / 1098.667 Output Total 400 / 400 Balance 698.667 / 698.667 Weight 226 lb 10.163 oz 226 lb 10.163 oz Intake: IV 1098.667 / 1098.667 Output: Estimated Blood Loss 400 / 400 Other: Emesis Description None [facility] Medical History Abnormal CT scan of head Benign prostatic hypertrophy without urinary obstruction Blind left eye BPH (benign prostatic hyperplasia) Cataract, congenital 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 reports foot was put back on above the ankle Arthroplasty of knee Right knee was not a knee replacement History of surgery on arm L, bone lengthened History of surgery on left wrist History of total bilateral knee replacement (TKR) (03/08/21) History of umbilical hernia repair Hx of knee surgery Rotator Cuff Repair Left S/P inguinal hernia repair using synthetic patch (~09/28/20) Status post hip replacement right Social History Smoking/Tobacco Use Status: Former Tobacco Use Quit Date: 10/14/99 Smoking risk assessment performed?: Yes Alcohol Intake: former Drug use: Never Substance use type: does not use Details: no alcohol or tobacco for 20 years Housing: house Number of Children: 3 Current gender identity: male What is your relationship status?: Panel score (0-1 are the most socially isolated patients): 1 Seatbelt use: always Do you feel safe at home: Yes Do you feel safe in your relationship?: Yes Documented by User: Fabricio Lofton MD 03/08/21 15:53 Discharge Plan Disposition Patient Disposition: HOME Condition: Good Discharge Details Reason For Visit: B/L TKA Admit Date/Time: 03/08/21 06:12 Admit Provider: Fabricio Lofton Attending Provider: Fabricio Lofton Primary Care Provider: Brandi Jacob Hospital Course Hospital Course: Patient was admitted to the medical/surgical floor following the procedure. The surgery was tolerated well without any notable medical, surgical, or anesthetic complications. Mobilization began postoperatively. He was voiding spontaneously. Vitals were stable. Physical therapy worked with the patient and was cleared for discharge home. No acute medical issues. Pain was controlled on oral regimen of 10mg Oxycodone. Home Meds and New Rx's Prescriptions: New acetaminophen 500 mg capsule 1,000 mg PO Q8H PRN PRNQty: 90 RF: 0 aspirin 81 mg tablet,delayed release (DR/EC) 81 mg PO BID Qty: 60 RF: 0 celecoxib 200 mg capsule 200 mg PO BID Qty: 60 RF: 0 gabapentin 300 mg capsule 300 mg PO QHS Qty: 14 RF: 0 oxycodone 10 mg tablet 10 mg PO Q4H PRNQty: 14 RF: 0 Continued Myrbetriq 25 mg tablet extended release 24 hr 25 mg PO DAILY Qty: 90 RF: 4 folic acid 1 mg tablet 1 mg PO DAILY RF: 0 cholecalciferol (vitamin D3) 125 mcg (5,000 unit) capsule 125 mcg PO DAILY RF: 0 zolpidem 6.25 MG tablet,ext release multiphase 6.25 mg PO PRN RF: 0 triamcinolone acetonide 0.1 % cream 1 applic TP BID PRNRF: 0 omeprazole 10 mg capsule,delayed release(DR/EC) 40 mg PO DAILY RF: 0 lisinopril 30 mg tablet 30 mg PO DAILY RF: 0 valacyclovir 1 gram tablet 2,000 mg PO Q12H PRNRF: 0 methotrexate sodium 10 mg tablet 15 mg PO QWEEK RF: 0 tamsulosin 0.4 mg capsule 0.8 mg PO DAILY RF: 0 nabumetone 750 mg Tablet 750 mg PO BID RF: 0 cyanocobalamin (vitamin B-12) Tablet,Chewable 1 tab PO DAILY RF: 0 hydroxychloroquine 200 mg tablet 200 mg PO BID RF: 0 docusate sodium [Colace] 100 mg capsule 100 mg PO BID PRNQty: 10 RF: 0 Discontinued acetaminophen [Tylenol Extra Strength] 500 mg tablet 500 mg PO Q6H PRNQty: 90 RF: 0 aspirin 81 mg Tablet,Chewable 81 mg PO DAILY RF: 0 Discharge Instructions Additional Instructions: Total Knee Discharge Instructions Activity: The most important activity is to walk. You should try to take short walks a few times a day. It is important that when resting you work on keeping the knee straight. Avoid putting a pillow behind the knee as this will encourage flexion. Work on range of motion exercises as provided by Physical Therapy. - Start outpatient physical therapy within 2 weeks. - You should wear the GAIL hose on both legs for 2 weeks. You may remove these at night. You may also use any compression sock in place of the GAIL hose. Dressing: You may remove the Hai wrap on your leg 2 days after your surgery and put on the GAIL stocking given to you from the hospital. Keep the surgical dressing (underneath the HAI wrap) in place for at least one week. After the first week it may be removed and replaced with light gauze and tape or nothing. The wound and dressing may get wet after 3 days but avoid soaking the dressing or otherwise it will need to be changed. Many people prefer covering the dressing with cling wrap (saran wrap) to minimize it from getting soaked. If it gets wet, just pat dry. If it starts to peel off then it will need to be changed. Medications: - You should take Tylenol and anti-inflammatory Celebrex as your primary pain control medications. If the Celebrex is too expensive or not covered, please call the office for another alternative (Advil/Ibuprofen or Naproxen/Aleve) - You have been prescribed a stronger pain medication Oxycodone for breakthrough pain, take as needed as prescribed. - You have been prescribed Gabapentin to take at night for restlessness and nerve pain. - You will be taking Aspirin 81mg twice a day for DVT prevention unless i nstructed otherwise. - If you have constipation you should take Colace or Miralax (both [id number]). It takes most people 3-4 days to have a bowel movement. Follow-up: 2 weeks If you have any acute concerns or questions, please do not hesitate to contact the office at [phone]. You may contact Dr. Lofton with any questions after hours through the hospital at [phone] or on his cell phone at [phone]. Referrals: Fabricio Lofton MD [ [facility] STAFF PHYSICIAN] - Activity:: Activity as Tolerated Equipment/Supplies:: Walker Diet:: As Tolerated Discharge Orders Discharge Orders: Discharge Order (Routine); Ordered 03/08/21 Ordered By: Fabricio Lofton DS: Summary Time Spent with Patient providing and/or coordinating discharge services: Less than 30 minutes Status at Discharge Functional status at discharge: uses cane/walker Overall status at discharge: patient is progressing back to baseline Mental Status: mental status grossly normal Speech and Movement: speech and movement normal Mood: congruent mood Affect: normal affect Exam Psych Mental Status: mental status grossly normal Speech and Movement: speech and movement normal Mood: congruent mood Affect: normal affect [facility] Medical History Abnormal CT scan of head Benign prostatic hypertrophy without urinary obstruction Blind left eye BPH (benign prostatic hyperplasia) Cataract, congenital 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 reports foot was put back on above the ankle Arthroplasty of knee Right knee was not a knee replacement History of surgery on arm L, bone lengthened History of surgery on left wrist History of total bilateral knee replacement (TKR) (03/08/21) History of umbilical hernia repair Hx of knee surgery Rotator Cuff Repair Left S/P inguinal hernia repair using synthetic patch (~09/28/20) Status post hip replacement right Social History Smoking/Tobacco Use Status: Former Tobacco Use Quit Date: 10/14/99 Smoking risk assessment performed?: Yes Alcohol Intake: former Drug use: Never Substance use type: does not use Details: no alcohol or tobacco for 20 years Housing: house Number of Children: 3 Current gender identity: male What is your relationship status?: Panel score (0-1 are the most socially isolated patients): 1 Seatbelt use: always Do you feel safe at home: Yes Do you feel safe in your relationship?: Yes
--- NOTE | 2021-03-08 21:54 | ROE_ITS ---
Date of service: 03/08/21 Time of Service: 10:32 Operative Note Operative Note DATE OF PROCEDURE: 03/08/21 PRE-OP DIAGNOSIS: Bilateral Knee Osteoarthritis POST-OP DIAGNOSIS: same PROCEDURE: Bilateral Total Knee Replacement SURGEON: Fabricio Lofton [employer]SERV[employer] SCIENCE TEACHER: Kymberly Wells ANESTHESIA TYPE: Spinal Refer to Anesthesia Record ESTIMATED BLOOD LOSS: 400 PATHOLOGY: none sent TOURNIQUET TIME: 0 COMPLICATIONS: None Patient was transported to: PACU Patient's condition: stable Implants: RIGHT: 1. Depuy Attune Cementless Cruciate Retaining Femoral Component, Size 6 2. Depuy Attune Cementless Rotating Platform Tibial Component, Size 6 3. Depuy Attune 6x6 CR/RP Poly 4. Depuy Attune Patellar Component, Size 38 LEFT: 1. Depuy Attune Cementless Cruciate Retaining Femoral Component, Size 7 2. Depuy Attune Cementless Rotating Platform Tibial Component, Size 6 3. Depuy Attune 7x5 CR/RP Poly 4. Depuy Attune Patellar Component, Size 38 Indications: I have seen Eduardo in clinic for symptoms of knee arthritis, confirmed with radiographic findings. Eduardo has exhausted nonoperative methods and was having significant limitations in daily function and desired better function and less pain. I discussed the technical details of a knee replacement. I explained the risks of the procedure to include, but not limited to, bleeding, infection, pain, stiffness, fracture, damage to nerves and vessels, damage to muscles and tendons, loosening, need for repeat procedure, blood clot and cardiopulmonary demise. Despite these risks, Eduardo elected to proceed. Findings: There was significant signs of arthritis throughout the knees. Each knee had focal areas of complete cartilage loss involving all 3 compartments. Procedure Description: Eduardo was greeted in the preoperative holding area where the correct side was identified and marked. The consent was reviewed with the patient and signed. The history and physical was updated. All questions were answered. Preoperative medications were administered: Acetaminophen 1000mg, Celebrex 400mg, and Gabapentin 300mg. An adductor canal block was then administered to each knee by the anesthesia team in the PACU. Eduardo was taken back to the operating room. A spinal anesthestic was then administered. The patient was placed into the supine position on the operating room table. A nonsterile tourniquet was placed high onto the leg but only used for cementing. Posts were placed for positioning during the procedure. All bony prominences were well padded. Prophylactic antibiotics in the form of Cefazolin were administered. 1g of Tranxemic Acid was given intravenously within 30 minutes of incision. Both legs were then prepped with Chloraprep and draped in a standard fashion with impervious stockinette and a bilateral extremity drape. A timeout to confirm correct identity, side and site, procedure, allergies, anesthesia, and medical concerns was performed. RIGHT KNEE: With the knee in some flexion, a midline incision was made overlying the knee. Full thickness skin flaps were raised once the extensor mechanism was encountered. These were raised medially and laterally. Any bleeding was controlled with electrocautery. Once the extensor mechanism was fully exposed, a medial parapatellar arthrotomy was performed in a flexed position. All bleeding from the arthrotomy and the geniculate arteries was coagulated. A medial subperiosteal peel was performed with electrocautery to the midcoronal plane. The fat pad was removed while keeping the patellar tendon protected. The anterior distal femur synovium was removed for later visualization. The ACL and PCL were resected and the anterior horn of the lateral meniscus was transected. The knee was then flexed with the patella everted. Large osteophytes from the tibia were removed. Large osteophytes from the femur were removed. There were areas of focal full- thickness cartilage defects of all three compartments. Using a step drill, and based on preoperative templating, the femoral canal was entered. This was done with a step drill without any difficulty. The intra medullary distal femoral cut guide was inserted, set to a 6 degree valgus cut and 9mm cut thickness. There was some hypoplasia of the lateral femoral condyle and any remnant cartilage of the medial femoral condyle was removed for appropriate thickness. The distal femoral cut guide was then held in position and pinned. With the soft tissues protected, the distal cut was performed. This was passed over a few times to ensure a planar cut. I then turned attention to the tibia. The extramedullary guide was placed onto the leg. The distal aspect was slid medial to adjust for position of center of ankle and stay in line with shaft of the tibia. Approximately 3-5 degrees of posterior slope was kept in the proximal cutting guide. The center of the guide was aligned with the PCL. The stylus was used to assess cut thickness. The medial side, most involved side, was set for a 4mm cut. This was then held in position and pinned into place with 2 additional pins and a cross pin for stability. The medial and lateral collateral ligaments were protected and the cut was performed. With this completed, it was assessed and noted to be of appropriate dimensions. The guide was removed. A spacer block was inserted and the knee was brought into extension. The 6mm spacer block provided full extension, without hyperextension and with stability of both the medial and lateral collateral ligaments was assessed. The pins from the femur and the tibia were then removed. The distal femur was then sized. The anterior stylus was placed onto the lateral ridge of the anterior femur. This indicated a size 6 femur. The external rotation of the guide was adjusted to 5 degrees to match the epicondylar axis, perpendicular to Chaffee?s line. The 4-in-1 cutting guide was the placed. The posterior medial femur cut was evaluated and appeared of good thickness. The spacer block was inserted underneath the cutting guide and stability was confirmed in 90 degrees of flexion. An marita wing was used to confirm appropriate position of the anterior cut to avoid notching. This cutting guide was ensured to be flush on the cut surface and then pinned into place with headed pins. While protecting the soft tissues, quad tendon, and collateral ligaments, the anterior and posterior cuts were performed with a saw. The central two pins were removed and the posterior and anterior chamfers were cut next. The notch-cutting guide was placed. This was pinned to lateralize the femoral component as much as possible while keeping it flush on the cut surface. This was then pinned into position. A reciprocating saw was used to make the notch cut. A rasp smoothed the cut surfaces. The medial and lateral menisci were removed. A trial femoral component was then inserted, impacted down to the cut surfaces, and the lug holes were drilled. A provisional trial tibial component was placed and the knee was brought through range of motion. There was noted to be excellent extension and flexion. There was no significant instability. The patella was tracking without thumbs. A size 6mm polyethylene component provided the best range of motion and stability with less than 2mm gapping with medial and lateral stress and full extension without significant hyperextension. The tibial cut surface was fully exposed. The tibia was then sized as a 6. The tibia had been previously marked during trialing to correspond to the center of the tibial component to help with rotation. The trial was aligned to this kymberly, approximately rotated to the medial 1/3rd of the tibial tubercle. The trial was pinned into place. The tibia was prepared with a reamer and a keel punch and lug holes. The knee was then brought into extension and the patella was measured as 25mm. Using the patellar clamp and cut guide, this was resected to a flat surface with at least 13mm of thickness remaining. The size 38 patella fit the best. This was oriented and then clamped into position. The lugs were drilled. The trial components were removed. The final components were opened on the back table. The periosteal and capsular tissues, especially posteriorly, around the knee were then systematically injected with a periarticular cocktail consisting of 50cc 0.25% Marcaine, 30mg Ketorolac, 20cc of Exparal and 50cc of injectable saline. The knee was thoroughly irrigated with a pulse lavage and dried. Irrisept was also used to irrigate the tissues. On the back table, with the implants opened, the cement was mixed. One batch of high viscosity cement was prepared with vacuum assistance. After the cement was ready a small amount was placed on the cut surface of the patella and the patellar button was clamped into position and held. While the cement was hardening, the cementless knee components were placed. Starting with the tibial component, the tibia was subluxed anteriorly and the lug holes of the component were lined up. The tibia was then impacted with an impactor and mallet until the tibial component was in contact with the tibia. The final polyethylene component was inserted. Then, the femoral component was inserted. The lug holes were aligned and the component was impacted into position. The knee was irrigated with Irrisept chlorhexadine solution. This was allowed to sit in the knee for 3 minutes. After the cement had finally cured, approximately 15min, the clamp was removed from the patella and the knee was taken through range of motion. The patella was tracking with a no-thumbs technique. The capsule was then reapproximated with a No. 1 Vicryl at multiple locations. The capsule was finally closed with a No. 2 Stratafix, barbed suture. The second dosing of 1g TXA was started. Deep tissues were then reapproximated with 0 Vicryl and 2-0 Vicryl. The skin was closed with a running 3-0 Monocryl in a subcuticular fashion. This was reinforced with skin glue. Mepilex silver dressing was applied. LEFT KNEE: With the knee in some flexion, a midline incision was made overlying the knee. Full thickness skin flaps were raised once the extensor mechanism was encountered. These were raised medially and laterally. Any bleeding was controlled with electrocautery. Once the extensor mechanism was fully exposed, a medial parapatellar arthrotomy was performed in a flexed position. All bleeding from the arthrotomy and the geniculate arteries was coagulated. A medial subperiosteal peel was performed with electrocautery to the midcoronal plane. The fat pad was removed while keeping the patellar tendon protected. The anterior distal femur synovium was removed for later visualization. The ACL and PCL were resected and the anterior horn of the lateral meniscus was transected. The knee was then flexed with the patella everted. Using a step drill, and based on preoperative templating, the femoral canal was entered. This was done with a step drill without any difficulty. The intramedullary distal femoral cut guide was inserted, set to a 6 degree valgus cut and 9mm cut thickness. The distal femoral cut guide was then held in position and pinned. With the soft tissues protected, the distal cut was performed. This was passed over a few times to ensure a planar cut. I then turned attention to the tibia. The extramedullary guide was placed onto the leg. The distal aspect was slid medial to adjust for position of center of ankle and stay in line with shaft of the tibia. Approximately 3-5 degrees of posterior slope was kept in the proximal cutting guide. The center of the guide was aligned with the PCL. The stylus was used to assess cut thickness. The medial side, most involved side, was set for a 4mm cut. This was then held in position and pinned into place with 2 additional pins and a cross pin for stability. The medial and lateral collateral ligaments were protected and the cut was performed. With this completed, it was assessed and noted to be of appropriate dimensions. The guide was removed. A spacer block was inserted and the knee was brought into extension. The 5mm spacer block provided full extension, without hyperextension and with stability of both the medial and lateral collateral ligaments was assessed. The pins from the femur and the tibia were then removed. The distal femur was then sized. The anterior stylus was placed onto the lateral ridge of the anterior femur. This indicated a size 7 femur. The external rotation of the guide was adjusted to 3 degrees to match the epicondylar axis, perpendicular to Chaffee?s line. The 4-in-1 cutting guide was the placed. The posterior medial femur cut was evaluated and appeared of good thickness. The spacer block was inserted underneath the cutting guide and stability was confirmed in 90 degrees of flexion. An marita wing was used to confirm appropriate position of the anterior cut to avoid notching. This cutting guide was ensured to be flush on the cut surface and then pinned into place with headed pins. While protecting the soft tissues, quad tendon, and collateral ligaments, the anterior and posterior cuts were performed with a saw. The central two pins were removed and the posterior and anterior chamfers were cut next. The notch-cutting guide was placed. This was pinned to lateralize the femoral component as much as possible while keeping it flush on the cut surface. This was then pinned into position. A reciprocating saw was used to make the notch cut. A rasp smoothed the cut surfaces. The medial and lateral menisci were removed. A trial femoral component was then inserted, impacted down to the cut surfaces, and the lug holes were drilled. A provisional trial tibial component was placed and the knee was brought through range of motion. There was noted to be excellent extension and flexion. There was no significant instability. The patella was tracking without thumbs. A size 5mm polyethylene component provided the best range of motion and stability with less than 2mm gapping with medial and lateral stress and full extension without significant hyperextension. The tibial cut surface was fully exposed. The tibia was then sized as a 6. The tibia had been previously marked during trialing to correspond to the center of the tibial component to help with rotation. The trial was aligned to this kymberly, approximately rotated to the medial 1/3rd of the tibial tubercle. The trial was pinned into place. The tibia was prepared with a reamer and a keel punch and lug holes. The knee was then brought into extension and the patella was measured as 25mm. Using the patellar clamp and cut guide, this was resected to a flat surface with at least 13mm of thickness remaining. The size 38 patella fit the best. This was oriented and then clamped into position. The lugs were drilled. The trial components were removed. The final components were opened on the back table. The periosteal and capsular tissues, especially posteriorly, around the knee were then systematically injected with a periarticular cocktail consisting of 50cc 0.25% Marcaine, 30mg Ketorolac, 20cc of Exparal and 50cc of injectable saline. The knee was thoroughly irrigated with a pulse lavage and dried. Irrisept was also used to irrigate the tissues. On the back table, with the implants opened, the cement was mixed. One batch of high viscosity cement was prepared with vacuum assistance. After the cement was ready a small amount was placed on the cut surface of the patella and the patellar button was clamped into position and held. While the cement was hardening, the cementless knee components were placed. Starting with the tibial component, the tibia was subluxed anteriorly and the lug holes of the component were lined up. The tibia was then impacted with an impactor and mallet until the tibial component was in contact with the tibia. The final polyethylene component was inserted. Then, the femoral component was inserted. The lug holes were aligned and the component was impacted into position. The knee was irrigated with Irrisept chlorhexadine solution. This was allowed to sit in the knee for 3 minutes. After the cement had finally cured, approximately 15min, the clamp was removed from the patella and the knee was taken through range of motion. The patella was tracking with a no-thumbs technique. The capsule was then reapproximated with a No. 1 Vicryl at multiple locations. The capsule was finally closed with a No. 2 Stratafix, barbed suture. The second dosing of 1g TXA was started. Deep tissues were then reapproximated with 0 Vicryl and 2-0 Vicryl. The skin was closed with a running 3-0 Monocryl in a subcuticular fashion. This was reinforced with skin glue. A Mepilex silver dressing was applied along with a [id number] CAREY wrap on both knees. A CryoCuff was applied. Eduardo was transferred to the hospital bed without difficulty an suffering no apparent complication. Eduardo has a good prognosis. Physical therapy will start today and without restrictions, weight-bearing as tolerated. Aspirin 81mg BID will be used for DVT prophylaxis.
== END 2021-03-08 18:02 | disposition home or self-care (01) | DRG 462 ==
LOC: PDS 06:13 → MS 15:45
PROVIDERS: Admitting Provider Student in an Organized Health Care Education/Training Program; PCP Nurse Practitioner Family; Visit Provider Student in an Organized Health Care Education/Training Program
PROC: 0SRC0JZ Replacement of Right Knee Joint with Synthetic Substitute, Open Approach (ICD-10-PCS; CPT 27447; principal; 2021-03-08 07:30)
DX: M17.0 Bilateral primary osteoarthritis of knee (principal); I10 Essential (primary) hypertension; R00.0 Tachycardia, unspecified; N40.0 Benign prostatic hyperplasia without lower urinary tract symptoms; Q12.0 Congenital cataract; H54.62 Unqualified visual loss, left eye, normal vision right eye; K57.90 Diverticulosis of intestine, part unspecified, without perforation or abscess without bleeding; K21.9 Gastro-esophageal reflux disease without esophagitis; G47.00 Insomnia, unspecified; E66.9 Obesity, unspecified; Z68.35 Body mass index [BMI] 35.0-35.9, adult; G47.33 Obstructive sleep apnea (adult) (pediatric)
CPT/HCPCS: 27447; 97110; 97162; 97530; J0171; J0690; J1100; J1885; J2405; J2704

== ENCOUNTER 2021-03-23 10:02 | Outpatient (CLI) | payer MEDICAID, SELFPAY ==
--- NOTE | 2021-03-23 08:30 | DI.RAD_ITS ---
Exam(s) XR KNEE LT 1V XR STANDING ALIGNMENT XR KNEE RT 1V EXAM: XR KNEE RT 1V CLINICAL HISTORY: TKA. TECHNIQUE: 2D digital imaging was performed. Standing AP views were performed from the pelvis throu gh the ankles. COMPARISON: CR XR KNEE LT 1V from 03/03/2021 CR XR KNEE LT 1V from 03/23/2021 CR XR STANDING ALIGNMENT from 03/23/2021 CR XR KNEE LT 1V from 03/23/2021 CR XR STANDING ALIGNMENT from 03/23/2021 FINDINGS: There is a right hip prosthesis. The left hip joint space is well maintained. There is no overall l eg length discrepancy at the level of the femoral heads, with the left femoral head and iliac crest p rojecting superior to the right. There are bilateral knee prostheses which are unremarkable. There is some bilateral anterior soft tissue swelling.. There is deformity of the distal tibia and fibula on the right related to old fractures. The ankle joint spaces are well maintained. IMPRESSION: Bilateral knee prostheses. Right hip prosthesis. Overall leg length discrepancy. DATA REPOSITORY: RADIATION DOSE DELIVERED:
== END 2021-03-23 10:03 | disposition home or self-care (01) ==
LOC: DIORS 10:03
PROVIDERS: PCP Nurse Practitioner Family; Referring Provider Nurse Practitioner Family; Visit Provider Physician Assistant
DX: Z96.641 Presence of right artificial hip joint (principal); Z96.653 Presence of artificial knee joint, bilateral; M79.89 Other specified soft tissue disorders
CPT/HCPCS: 73560; 77073

== ENCOUNTER 2021-05-17 09:45 | Outpatient (CLI) | payer MEDICAID, SELFPAY ==
[2021-05-17 09:43] LABS: Abs Immature Grans 0.06 10^3/uL (0.0-0.06); Absolute Basophil Count 0.05 10^3/uL (0.0-0.2); Absolute Eosinophil Count 0.08 10^3/uL (0.0-0.7); Absolute Lymphocyte Count 1.21 10^3/uL (1.2-3.4); Absolute Neutrophil Count 4.06 10^3/uL (1.2-6.7); Basophils % 0.8; Eosinophils % 1.3; HCT 40.1 % (40.0-50.0); HGB 13.2 g/dL (13.5-17.5); Lymphocytes % 19.6; MCH 33.1 pg (27.0-33.0); MCHC 32.9 % (32.0-36.0); MCV 100.5 fL (80-95); MPV 8.3 fL (8.0-11.0); Monocytes % 11.4; Neutrophils % 65.9; Nucleated RBC 0 %; Platelet Count 303 10^3/uL (130-400); RBC 3.99 10^6/uL (4.36-5.78); RDW 13.7 % (11.8-14.1); RDW-SD 50.7 fL; WBC 6.16 10^3/uL (4.4-10.8)
[2021-05-17 11:51] LABS: ALT 17 U/L (16-63); AST 16 U/L (15-37); Albumin 3.8 g/dL (3.4-5.0); Alkaline Phosphatase 118 U/L (46-116); Anion Gap 9.7 mmol/L (3-11); BUN 14 mg/dL (7-18); Bilirubin, Total 0.3 mg/dL (0.2-1.0); CO2 26.3 mmol/L (21.0-32.0); CREATININE 0.9 mg/dL (0.70-1.30); Calcium 9.3 mg/dL (8.5-10.1); Chloride 103 mmol/L (98-107); Glucose 90 mg/dL (74-106); Potassium 4.5 mmol/L (3.5-5.1); Sodium 139 mmol/L (136-145); Total Protein 6.6 g/dL (6.4-8.2); Vitamin B12 813 pg/mL (193-986)
== END 2021-05-17 09:46 | disposition home or self-care (01) ==
LOC: LBO 09:47
PROVIDERS: PCP Nurse Practitioner Family; Visit Provider Internal Medicine Rheumatology
DX: D75.89 Other specified diseases of blood and blood-forming organs (principal); E53.8 Deficiency of other specified B group vitamins; M13.89 Other specified arthritis, multiple sites
CPT/HCPCS: 36415; 80053; 82607; 85025

== ENCOUNTER 2021-07-20 15:54 | Emergency (ER) | payer MEDICAID, SELFPAY ==
[2021-07-20] VITALS (36 sets, daily range): BP systolic 101–134; BP diastolic 54–92; PULSE 100–111; RESP 15–30; TEMP 37.1; O2SAT 95–98
--- NOTE | 2021-07-20 15:45 | RT.EKG_ITS ---
APPROVED REPORT Exam: Resting ECG Reason for Exam: chest pain Patient Location: E HR:104 bpm ECG Measurements Heart Rate 104 AXIS MS 146 P 60 QRSd 86 QRS 1 QT 317 T 56 QTc 418 Conclusion Sinus tachycardia. No st elevation
[2021-07-20 16:12] LABS: Abs Immature Grans 0.08 10^3/uL (0.0-0.06); Absolute Basophil Count 0.06 10^3/uL (0.0-0.2); Absolute Monocyte Count 0.89 10^3/uL (0.1-0.8); Absolute Neutrophil Count 7.34 10^3/uL (1.2-6.7); Basophils % 0.6; HCT 41.1 % (40.0-50.0); HGB 13.9 g/dL (13.5-17.5); Immature Grans % 0.8; Lymphocytes % 16.7; MCH 34.1 pg (27.0-33.0); MCHC 33.8 % (32.0-36.0); MCV 100.7 fL (80-95); MPV 8.6 fL (8.0-11.0); Monocytes % 8.8; Neutrophils % 72.1; Nucleated RBC 0 %; Platelet Count 342 10^3/uL (130-400); RBC 4.08 10^6/uL (4.36-5.78); RDW-SD 47.8 fL; WBC 10.17 10^3/uL (4.4-10.8)
--- NOTE | 2021-07-20 16:15 | DI.CT_ITS ---
Exam(s) CT CHEST PE ABD PELVIS W EXAM: CT CHEST PE ABD PELVIS W TECHNIQUE: CT angiography of the chest, abdomen and pelvis was performed with bolus infusion of 100 cc of Omnipaque 350. Axial CT angiography was performed with multi-slice acquisition and multi-planar and/or 3D reconstruc tions. COMPARISON: CT CT ABDOMEN PELVIS W from 08/17/2019 FINDINGS: The lungs are marco a except for mild dependent changes of scarring or atelectasis. There is no pleura l effusion. The pulmonary arterial circulation is not well opacified, no gross central embolus ident ified. No thoracic aortic dissection or aneurysm. Major branches of the thoracic aorta appear normal . No pleural effusion. No mediastinal or hilar adenopathy. Tracheobronchial tree appears intact. No focal hepatic or renal abnormality seen. Gallbladder and bile ducts are CT normal. Pancreas is unr emarkable. Spleen is unremarkable. No abdominal aortic aneurysm or dissection. Major branches of the abdominal aorta appear normal. No a bdominal or pelvic adenopathy. Normal appendix. No significant abdominal wall hernia. No focal bowel pathology. IMPRESSION: No evidence of acute vascular abnormality of the chest, abdomen or pelvis. No other abnormalities are seen. RADIATION DOSE DELIVERED: 1,908.74mGy.cm Total DLP 1,908.74mGy.cm Total DLP 1,908.74mGy.cm Total DLP CTDIvol DATA REPOSITORY: All CT scans at this facility are submitted to the National Radiology Data Registry (NRDR) Dose Index Registry (DIR) with the [employer] ([employer]). RADIATION OPTIMIZATION: All CT scans at this facility use at least one of these dose optimization te chniques: automated exposure control; mA and/or kV adjustment per patient size (includes targeted exa ms where dose is matched to clinical indication); or iterative reconstruction.
--- NOTE | 2021-07-20 16:20 | ED.GENADUL_ITS ---
Discharge Plan Disposition Patient Disposition: HOME Condition: Stable Discharge Details Clinical Impression: Chest pain Primary Care Provider: Brandi Jacob ED Provider: Janet Andrade Home Meds and New Rx's Prescriptions: No Action folic acid 1 mg tablet 1 mg PO DAILY RF: 0 cholecalciferol (vitamin D3) 125 mcg (5,000 unit) capsule 125 mcg PO DAILY RF: 0 Narcan 4 mg/actuation spray,non-aerosol 4 mg intranasal Q2-3M PRN (Reason: opioid overdose) Qty: 2 RF: 0 oxybutynin chloride 10 mg tablet extended release 24hr 10 mg PO DAILY Qty: 90 RF: 3 celecoxib 200 mg capsule 200 mg PO BID Qty: 60 RF: 3 cyclobenzaprine 5 mg tablet 5 mg PO QHS Qty: 14 RF: 0 tamsulosin 0.4 mg capsule 0.4 mg PO DAILY RF: 0 zolpidem 6.25 MG tablet,ext release multiphase 6.25 mg PO PRN RF: 0 triamcinolone acetonide 0.1 % cream 1 applic TP BID PRNRF: 0 omeprazole 10 mg capsule,delayed release(DR/EC) 40 mg PO DAILY RF: 0 lisinopril 30 mg tablet 30 mg PO DAILY RF: 0 valacyclovir 1 gram tablet 2,000 mg PO Q12H PRNRF: 0 methotrexate sodium 10 mg tablet 15 mg PO QWEEK RF: 0 Xtampza ER 18 mg cap,sprinkl,ER12hr(DONT CRUSH) 18 mg PO BID MDD 36mg Qty: 6 RF: 0 cyanocobalamin (vitamin B-12) Tablet,Chewable 1 tab PO DAILY RF: 0 acetaminophen 500 mg capsule 1,000 mg PO Q8H PRN PRNQty: 90 RF: 0 aspirin 81 mg tablet,delayed release (DR/EC) 81 mg PO BID Qty: 60 RF: 0 gabapentin 300 mg capsule 300 mg PO QHS Qty: 14 RF: 0 hydroxychloroquine 200 mg tablet 200 mg PO BID RF: 0 docusate sodium [Colace] 100 mg capsule 100 mg PO BID PRNQty: 10 RF: 0 Discharge Instructions Instructions: Chest Pain (ED) Additional Instructions: Follow up with primary care provider in 3-5 days. Return to ED sooner if any worsening or concerns. Increase oral fluids. At this time CT of your chest abdomen pelvis shows no bowel obstruction no pulmonary embolism. Initial troponin and 3-hour troponin are within normal limits. EKG is unchanged. A outpatient stress test was ordered. Please return for any worsening pain, dizziness, worsening headache or any concerns peer Referrals: Brandi Jacob [Primary Care Provider] - 3 days Medical Decision Making 61-year-old male presents to the ER sent by urgent care for with chief complaint of chest pain which he describes as achiness which began yesterday around 3 PM. He also reports headache neck pain and abdominal pain. He denies any nausea vomiting or diarrhea. Denies any visual disturbances. No focal neuro deficits. He reports that the episode began with headache neck pain and then went away. Chest pain began prior to bedtime. He reports he was able to sleep through the night. Woke up this morning with the chest pain still present. He is a former smoker, history of hypertension does take a baby aspirin daily. Does have surgical history of rotator cuff repair, bilateral knee replacement and abdominal hernia repair. Initial exam does have some midepigastric tenderness with palpation. EKG was reviewed by Dr. Cheko Gottlieb ER attending, please see his official report. At this time cardiac work-up ordered including serial troponins, and a lipase, will give 243 mg of baby aspirin patient did take a 81 mg aspirin this morning and his normal lisinopril. CT chest abdomen pelvis also ordered. Differential diagnosis includes but not limited to coronary artery disease, MD, PE, c holecystitis CBC largely unremarkable, CMP within normal limits, initial troponin within normal limits lipase 135. CT chest vRad report: IMPRESSION: 1. Limited opacification of pulmonary arteries without acute pulmonary embolism or gross aortic aneurysm. 2. Grossly clear lungs. 3. Asymmetric retroareolar density on the left which should be followed as noted above. FINDINGS: Aorta: Mild atherosclerotic changes aorta iliac system. Celiac trunk and mesenteric arteries: No occlusion or significant stenosis. Renal arteries: No occlusion or significant stenosis. CT abdomen pelvis with contrast: IMPRESSION: 1. No bowel obstruction or free air. 2. No renal stones or gallstones. 3. No acute inflammatory change. 4. No bowel containing hernia. Discussed CT results and lab results with patient who verbalized understanding. Outpatient stress test ordered and discuss strict return instructions and follow-up with PCP, verbalized understanding. HPI General Mode of arrival: ambulatory . Date/Time Provider Initiated Documentation: 07/20/21 15:58 . Limitations to Documentation: no limitations . Information obtained by: patient, RN notes reviewed and old records reviewed . HPI Narrative: 61-year-old male presents to the ER sent by urgent care for with chief complaint of chest pain which he describes as achiness which began yesterday around 3 PM. He also reports headache neck pain and abdominal pain. He denies any nausea vomiting or diarrhea. Denies any visual disturbances. No focal neuro deficits. He reports that the episode began with headache neck pain and then went away. Chest pain began prior to bedtime. He reports he was able to sleep through the night. Woke up this morning with the chest pain still present. He is a former smoker, history of hypertension does take a baby aspirin daily. Does have surgical history of rotator cuff repair, bilateral knee replacement and abdominal hernia repair. Initial exam does have some midepigastric tenderness with palpation. Related Data Home Medications Medication Instructions Recorded Confirmed zolpidem 6.25 mg PO PRN 12/07/15 07/20/21 omeprazole 10 mg capsule,delayed 40 mg PO DAILY cap 12/17/19 07/20/21 release triamcinolone acetonide 0.1 % 1 applic TP BID PRN 12/17/19 07/20/21 topical cream lisinopril 30 mg tablet 30 mg PO DAILY 07/01/20 07/20/21 folic acid 1 mg tablet 1 mg PO DAILY 07/12/20 07/20/21 hydroxychloroquine 200 mg PO BID 09/26/20 07/20/21 docusate sodium [Colace] 100 mg PO BID PRN #10 cap 10/19/20 07/20/21 valacyclovir 1 gram tablet 2,000 mg PO Q12H PRN tab 02/22/21 07/20/21 cholecalciferol (vitamin D3) 125 125 mcg PO DAILY 03/03/21 07/20/21 mcg (5,000 unit) capsule cyanocobalamin (vitamin B-12) 1 tab PO DAILY 03/03/21 07/20/21 methotrexate sodium 10 mg tablet 15 mg PO QWEEK tab 03/03/21 07/20/21 acetaminophen 1,000 mg PO Q8H PRN PRN #90 cap 03/08/21 07/20/21 aspirin 81 mg PO BID #60 tab 03/08/21 07/20/21 gabapentin 300 mg PO QHS #14 cap 03/08/21 07/20/21 naloxone 4 mg/actuation nasal spray 4 mg INTRANASAL Q2-3M PRN #2 ea 03/09/21 07/20/21 oxycodone myristate 18 mg capsule 18 mg PO BID #6 cap MDD 36mg 03/10/21 07/20/21 sprinkle extended release 12hr(DON'T CRUSH) celecoxib 200 mg capsule 200 mg PO BID #60 cap 04/24/21 07/20/21 cyclobenzaprine 5 mg tablet 5 mg PO QHS #14 tab 04/24/21 07/20/21 oxybutynin chloride 10 mg 10 mg PO DAILY #90 tab 04/28/21 07/20/21 tablet,extended release 24 hr tamsulosin 0.4 mg capsule 0.4 mg PO DAILY cap 06/30/21 07/20/21 Previous Rx's Medication Instructions Recorded docusate sodium [Colace] 100 mg PO BID PRN #10 cap 10/19/20 acetaminophen 1,000 mg PO Q8H PRN PRN #90 cap 03/08/21 aspirin 81 mg PO BID #60 tab 03/08/21 gabapentin 300 mg PO QHS #14 cap 03/08/21 naloxone 4 mg/actuation nasal spray 4 mg INTRANASAL Q2-3M PRN #2 ea 03/09/21 oxycodone myristate 18 mg capsule 18 mg PO BID #6 cap MDD 36mg 03/10/21 sprinkle extended release 12hr(DON'T CRUSH) celecoxib 200 mg capsule 200 mg PO BID #60 cap 04/24/21 cyclobenzaprine 5 mg tablet 5 mg PO QHS #14 tab 04/24/21 oxybutynin chloride 10 mg 10 mg PO DAILY #90 tab 04/28/21 tablet,extended release 24 hr Allergies Allergy/AdvReac Type Severity Reaction Status Date / Time No Known Allergies Allergy Verified 07/20/21 16:07 General Stated Complaint: Chest Pain ALESSANDRO: 2 Review of Systems All systems reviewed & are unremarkable except as noted in HPI and below PFSH Medical History Abnormal CT scan of head Benign prostatic hypertrophy without urinary obstruction Blind left eye BPH (benign prostatic hyperplasia) Cataract, congenital 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 reports foot was put back on above the ankle Arthroplasty of knee Right knee was not a knee replacement History of surgery on arm L, bone lengthened History of surgery on left wrist History of total bilateral knee replacement (TKR) (03/08/21) History of umbilical hernia repair Hx of knee surgery Rotator Cuff Repair Left S/P arthroscopy of right shoulder (11/25/20) SCR reconstruction, RTC repair, biceps tenodesis by Dr. Jose S/P inguinal hernia repair using synthetic patch (~09/28/20) Status post hip replacement right Social History Smoking/Tobacco Use Status: Former Tobacco Use Quit Date: 10/14/99 Smoking risk assessment performed?: Yes Alcohol Intake: former Drug use: Never Substance use type: does not use Details: no alcohol or tobacco for 20 years Housing: house Number of Children: 3 Current gender identity: male What is your relationship status?: Panel score (0-1 are the most socially isolated patients): 1 Seatbelt use: always Do you feel safe at home: Yes Do you feel safe in your relationship?: Yes Exam Narrative Exam Narrative: Constitutional: Alert and oriented x3. Appears stated age. Obese body habitus. Head: Normocephalic, no trauma. Eyes: Pupils PERRLA, Red reflex noted, EOM's intact. Eyelids symmetrical without lesions, discharge, or swelling. ENT: Bilateral TM's WNL, External ear normal to inspection, no mastoid TTP, swelling, or erythema, Nasal turbinates WNL, no nasal discharge. Normal dentition, Posterior pharynx WNL, no exudate. Chest: Sinus tachycardia rate of 112, Normal S1, S2, distal pulses intact. Trace edema noted to his left lower extremity he reports this is chronic from his knee surgeries. Resp: Lungs clear to auscultation bilaterally, no wheezes, rales, or rhonchi. Abdomen: Soft, tenderness to right upper quadrant midepigastrium with palpation. Musculoskeletal: Normal gait, 5/5 strength to all four extremities. Skin: No suspicious rashes or lesions. Capillary refill less than 2 sec. Neurologic: Cranial nerves II-XII intact. Alert and oriented x 3. DTR's intact. Hematologic/Lymphatic: No ecchymosis, no lymphadenopathy. Course Vital Signs Vital signs: Vital Signs Temperature 37.1 C 07/20/21 16:01 Pulse 107 H 07/20/21 16:01 Respiratory Rate 20 07/20/21 16:01 Blood Pressure 123/84 07/20/21 16:01 Pulse Oximetry 96 07/20/21 16:01 Temperature 37.1 C 07/20/21 16:01 Temperature Source Skin 07/20/21 16:01 Pulse 107 H 07/20/21 16:01 Respiratory Rate 20 07/20/21 16:01 Respiratory Effort Non-Labored 07/20/21 16:01 Blood Pressure 123/84 07/20/21 16:01 Blood Pressure Position Supine 07/20/21 16:01 Pulse Oximetry 96 07/20/21 16:01 Oxygen Delivery Method Room Air 07/20/21 16:01 Oxygen Flow Rate 0 07/20/21 16:01 Pain Level 3 07/20/21 16:01
[2021-07-20] MEDS: Aspirin 81 MG CHEW 162 MG CH (16:26)
[2021-07-20 16:27] LABS: ALT 26 U/L (16-63); AST 17 U/L (15-37); Albumin 3.9 g/dL (3.4-5.0); Alkaline Phosphatase 119 U/L (46-116); BUN 16 mg/dL (7-18); Bilirubin, Total 0.5 mg/dL (0.2-1.0); Calcium 8.9 mg/dL (8.5-10.1); Chloride 105 mmol/L (98-107); Glucose 106 mg/dL (74-106); Magnesium 1.9 mg/dL (1.8-2.4); Potassium 3.7 mmol/L (3.5-5.1); Sodium 139 mmol/L (136-145); Total Protein 7.3 g/dL (6.4-8.2)
[2021-07-20 16:28] LABS: Troponin I < 0.05 ng/mL (<0.06)
[2021-07-20] MEDS: Aspirin 81 MG CHEW CH (16:28)
[2021-07-20] MEDS: Normal Saline - Diluent 50 ML VIAL IV (17:09)
[2021-07-20] MEDS: Omnipaque 350 MG/ML 100 ML BTL IJ (17:11)
[2021-07-20 17:13] LABS: Lipase 135 U/L (73-393)
[2021-07-20] MEDS: Normal Saline Flush 10 ML SYR IVP (17:13)
--- NOTE | 2021-07-20 18:05 | DI.VRAD_ITS ---
PROCEDURE INFORMATION: Exam: CTA Chest With Contrast Exam date and time: 07/20/2021 4:21 PM Age: 61 years old Clinical indication: Other: Chest, abdominal pain; Prior surgery; Surgery date: 6+ months; Surgery type: Umbilical hernia repair TECHNIQUE: Imaging protocol: Computed tomographic angiography of the chest with contrast. 3D rendering (Not supervised by radiologist): MIP and/or 3D reconstructed images were created by the technologist. COMPARISON: CT ABDOMEN PELVIS W 08/17/2019 4:35 PM FINDINGS: Pulmonary arteries: There is poor opacification of the pulmonary arterial tree without large or central acute pulmonary embolism but beyond the 2nd order branches the evaluation is quite limited. Aorta: There are atherosclerotic changes of the thoracic aorta without gross aneurysm or dissection. Thyroid: Homogeneous thyroid. Lungs: The lungs are clear of dense consolidation. Dependent likely atelectatic changes are present. Limited axial thickening. No spiculated mass or nodule. Pleural spaces: Unremarkable. No pneumothorax. No pleural effusion. Heart: The heart is not enlarged and I see no significant pericardial mediastinal fluid. Lymph nodes: No confluent lymph node enlargement. Bones/joints: Remote rib deformities without acute fracture. Soft tissues: Mildly asymmetric potential gynecomastia changes in the retroareolar location on the left in comparison to the right. Correlation with physical exam and ultrasound follow-up recommended here. Mammography can also be performed. IMPRESSION: 1. Limited opacification of pulmonary arteries without acute pulmonary embolism or gross aortic aneurysm. 2. Grossly clear lungs. 3. Asymmetric retroareolar density on the left which should be followed as noted above. PROCEDURE INFORMATION: Exam: CT Angiography Abdomen With Contrast Exam date and time: 07/20/2021 4:21 PM Age: 61 years old Clinical indication: Other: Chest, abdominal pain; Prior surgery; Surgery date: 6+ months; Surgery type: Umbilical hernia repair TECHNIQUE: Imaging protocol: Computed tomographic angiography images of the abdomen with intravenous contrast material. 3D rendering (Not supervised by radiologist): MIP and/or 3D reconstructed images were created by the technologist. COMPARISON: CT ABDOMEN PELVIS W 08/17/2019 4:35 PM FINDINGS: Aorta: Mild atherosclerotic changes aorta iliac system. Celiac trunk and mesenteric arteries: No occlusion or significant stenosis. Renal arteries: No occlusion or significant stenosis. Liver: No focal liver lesions. Gallbladder and bile ducts: No gallstones or choledocholithiasis. Pancreas: Normal. No ductal dilation. Spleen: The spleen is not enlarged. Adrenals: Normal. No mass. Kidneys and ureters: Normal. No hydronephrosis. Stomach and bowel: There is a very diminutive midline infraumbilical hernia without bowel contained within. Small amount of fat here. Mildly distended stomach. No bowel obstruction. A few sigmoid diverticuli without active diverticulitis. Poor distension of the mid sigmoid colon. Coapted loops of small bowel along the right pelvis, again not grossly obstructed. No bowel containing hernia. Appendix: Normal appendix. Lymph nodes: Unremarkable. No enlarged lymph nodes. Intraperitoneal space: Unremarkable. No free air. No significant fluid collection. Reproductive: The prostate is enlarged. Bladder: Distended urinary bladder without filling defects within. Bones/joints: No acute fracture. Degenerative changes and a modest scoliosis. Surgical hardware partially visualized in the right hip. Remote trauma to the pelvis. Soft tissues: Inguinal rings are with fat bilaterally. IMPRESSION: 1. No bowel obstruction or free air. 2. No renal stones or gallstones. 3. No acute inflammatory change. 4. No bowel containing hernia. Dictated and Authenticated by: Gregory Gustafson MD. Ordering:WESTON Gonzales MD
--- NOTE | 2021-07-20 18:45 | RT.EKG_ITS ---
APPROVED REPORT Exam: Resting ECG Reason for Exam: Patient Location: E HR:102 bpm ECG Measurements Heart Rate 102 AXIS ND 146 P 48 QRSd 89 QRS -10 QT 323 T 38 QTc 420 Conclusion Sinus tachycardia No st elevation
[2021-07-20 19:12] LABS: Troponin I < 0.05 ng/mL (<0.06)
== END 2021-07-20 19:52 | disposition home or self-care (01) ==
PROVIDERS: Emergency Provider Registered Nurse Emergency; PCP Nurse Practitioner Family
DX: R07.89 Other chest pain (principal); R51.9 Headache, unspecified; M54.2 Cervicalgia; R10.9 Unspecified abdominal pain
CPT/HCPCS: 36415; 71275; 74177; 80053; 83690; 93005; 99285; 83735; 84484; 85025; 93010; 99284; J3490

== ENCOUNTER 2021-10-12 02:24 | Outpatient (CLI) | payer MEDICAID, SELFPAY ==
--- NOTE | 2021-10-12 14:36 | DI.RAD_ITS ---
Exam(s) RF JOINT INJECTION FLUORO GUID EXAM: RF JOINT INJECTION FLUORO GUID CLINICAL HISTORY: L WRIST INJ UNDER FLUORO,lt wrist pain,sprain,s63.501a TECHNIQUE: Fluoroscopy provided. Radiologist not present. CONTRAST MATERIAL: None COMPARISON: No exams were available for comparison FINDINGS: Fluoroscopy was provided for Dr. Lofton during wrist injection. Please refer to the procedure report for complete details. Cumulative Dose: Ka,r=0.527 mGy IMPRESSION: RADIATION DOSE DELIVERED:
--- NOTE | 2021-10-12 14:56 | DI.RAD_ITS ---
Exam(s) RF JOINT INJECTION FLUORO GUID EXAM: RF JOINT INJECTION FLUORO GUID CLINICAL HISTORY: RT Thumb INJ UNDER FLUORO,rt thumb pain, m25.532 TECHNIQUE: 2D and realtime digital imaging was performed. CONTRAST MATERIAL: Water soluble contrast was administered. COMPARISON: None. FINDINGS: Fluoroscopy was provided for Dr. Lofton during the performance of a 1st CMC joint injection. Plea se refer to the procedure report for complete details. RADIATION DOSE DELIVERED: tao Wilcox=0.527 mGy
[2021-10-12] MEDS: Omnipaque 300 MG/ML 10 ML BTL IV (15:14)
[2021-10-12] MEDS: methylPREDNISolone ACETATE 40 MG/ML VIAL IM (15:15)
--- NOTE | 2021-10-12 15:23 | W.PROCNOTE ---
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 Previous proximal row carpectomy and has some residual pain with worsening arthritis between the distal row and the radius. He had been seen previously by Dr. Kings Rodriguez at [facility]. He has failed other nonoperative options and desired to proceed with an injection for potential pain relief. Additionally, he has known pain about his right thumb CMC joint and has had a previous injection with good pain relief. His pain is returned and he desired to have a repeat right thumb CMC injection under fluoroscopy. I discussed the risk of these 2 injections. All his questions were answered. He elects to proceed. Procedure Description: Eduardo was greeted in the fluoroscopy room. Consent was reviewed the patient and signed. The left wrist was approached first. While sitting with his left hand on the fluoroscopy table the dorsal aspect of the left wrist was prepped ChloraPrep. The approach from the radial aspect of the wrist joint was identified on the skin and confirmed with fluoroscopy. The skin overlying this area was injected with 1% lidocaine. I then placed a 21-gauge needle into the wrist joint. It was quite dense in this area but was able to advance the needle into the joint itself and confirmed this with injection of Omnipaque solution. I then injected 2 cc of 0.5% ropivacaine along with 40 milligrams of Depo-Medrol. He tolerated this procedure well. A Band-Aid was applied. Next, attention was turned to the CMC joint. The right hand was placed onto the fluoroscopy table in position appropriately. The dorsal and radial aspect of the wrist and the base of the thumb was prepped with ChloraPrep. Using fluoroscopy to establish a starting point, I injected the soft tissues with 1% lidocaine. I then advanced a 21-gauge needle into the first CMC joint. Initial entry was difficult with finding the correct space. However, once what felt like to be inside the first CMC joint, I confirmed this with some Omnipaque. I then injected 1 cc of 0.5% ropivacaine along with 40 mg of Depo-Medrol. He tolerated this well and a Band-Aid was applied.
== END 2021-10-12 02:44 ==
PROVIDERS: PCP Nurse Practitioner Family; Visit Provider Student in an Organized Health Care Education/Training Program
DX: M19.032 Primary osteoarthritis, left wrist (principal); M19.042 Primary osteoarthritis, left hand
CPT/HCPCS: 20605; 20600; 77002; J1030

== ENCOUNTER 2021-10-19 04:19 | Outpatient (CLI) | payer MEDICAID, SELFPAY ==
[2021-10-19 09:18] LABS: Abs Immature Grans 0.13 10^3/uL (0.0-0.06); Absolute Basophil Count 0.06 10^3/uL (0.0-0.2); Absolute Eosinophil Count 0.07 10^3/uL (0.0-0.7); Absolute Lymphocyte Count 1.76 10^3/uL (1.2-3.4); Absolute Monocyte Count 0.78 10^3/uL (0.1-0.8); Basophils % 0.7; Eosinophils % 0.8; HCT 42.9 % (40.0-50.0); HGB 13.9 g/dL (13.5-17.5); Immature Grans % 1.5; MCH 32.3 pg (27.0-33.0); MCHC 32.4 % (32.0-36.0); MCV 99.5 fL (80-95); MPV 8.6 fL (8.0-11.0); Monocytes % 8.9; Neutrophils % 68.1; Nucleated RBC 0 %; Platelet Count 394 10^3/uL (130-400); RBC 4.31 10^6/uL (4.36-5.78); RDW 14.3 % (11.8-14.1); RDW-SD 51.7 fL
[2021-10-19 10:24] LABS: ALT 26 U/L (16-63); AST 15 U/L (15-37); Albumin 4.1 g/dL (3.4-5.0); Alkaline Phosphatase 102 U/L (46-116); Anion Gap 8.7 mmol/L (3-11); BUN 19 mg/dL (7-18); Bilirubin, Total 0.6 mg/dL (0.2-1.0); C-Reactive Protein 0.24 mg/dL (0.0-0.3); CO2 26.3 mmol/L (21.0-32.0); Calcium 9.4 mg/dL (8.5-10.1); Chloride 101 mmol/L (98-107); Glucose 111 mg/dL (74-106); Potassium 4.7 mmol/L (3.5-5.1); Sodium 136 mmol/L (136-145); Total Protein 7.1 g/dL (6.4-8.2)
[2021-10-19 11:06] LABS: Vitamin B12 1223 pg/mL (193-986)
== END 2021-10-19 04:20 | disposition home or self-care (01) ==
PROVIDERS: PCP Nurse Practitioner Family; Visit Provider Internal Medicine Rheumatology
DX: E53.8 Deficiency of other specified B group vitamins (principal); D75.89 Other specified diseases of blood and blood-forming organs; M06.4 Inflammatory polyarthropathy; Z79.899 Other long term (current) drug therapy
CPT/HCPCS: 36415; 80053; 82607; 85025; 86140

== ENCOUNTER 2022-02-20 08:55 | Outpatient (CLI) | payer MEDICAID, SELFPAY ==
--- NOTE | 2022-02-20 08:30 | DI.RAD_ITS ---
Exam(s) XR SHOULDER RT COMPLETE 2+V EXAM: XR SHOULDER RT COMPLETE 2+V CLINICAL HISTORY: right shoulder pain. TECHNIQUE: 2D digital imaging was performed. COMPARISON: CR XR SHOULDER RT COMPLETE 2+V from 07/12/2020 FINDINGS: Two views There is no evidence of fracture nor dislocation. There are moderate osteoarthritic degenerative joceline nges in the glenohumeral joint. There is no prominent joint space narrowing but there osteophytes on the opposing inferior articular surfaces of the humeral head and osseous glenoid. Also degenerative subarticular cysts noted in the inferior osseous glenoid. Also significant here is diminution of the subacromial space height and an osteophytic ridge both on the undersurface of the acromion as well as on the superior aspect of the humeral head. Suspect sign ificant rotator cuff pathology. There are no abnormal soft tissue calcifications. IMPRESSION: 1. Moderate-advanced osteoarthritic degenerative change in the glenohumeral joint. 2. Subacromial space height diminution as described above. Suspect full-thickness rotator cuff patho logy. If clinically indicated this could be further studied with MRI. DATA REPOSITORY: RADIATION DOSE DELIVERED:
== END 2022-02-20 08:56 | disposition home or self-care (01) ==
LOC: DIORS 08:55
PROVIDERS: PCP Nurse Practitioner Family; Referring Provider Nurse Practitioner Family; Visit Provider Physician Assistant
DX: M25.511 Pain in right shoulder (principal); M19.011 Primary osteoarthritis, right shoulder; M25.711 Osteophyte, right shoulder
CPT/HCPCS: 73030

== ENCOUNTER 2022-03-02 14:53 | Outpatient (REF) | payer MEDICAID, SELFPAY ==
[2022-03-02 16:10] LABS: Calculated LDL 108 mg/dL (<100); Cholesterol 196 mg/dL (<200); HDL Cholesterol 54 mg/dL (40-60); Triglyceride 171 mg/dL (<150)
== END 2022-03-02 14:54 | disposition home or self-care (01) ==
LOC: NCHCN 14:53
PROVIDERS: PCP Nurse Practitioner Family; Visit Provider Nurse Practitioner Family
DX: Z13.220 Encounter for screening for lipoid disorders (principal)
CPT/HCPCS: 80061

== ENCOUNTER 2022-03-09 01:56 | Outpatient (CLI) | payer MEDICAID, SELFPAY ==
[2022-03-09 08:47] LABS: Abs Immature Grans 0.07 10^3/uL (0.0-0.06); Absolute Basophil Count 0.05 10^3/uL (0.0-0.2); Absolute Eosinophil Count 0.09 10^3/uL (0.0-0.7); Absolute Lymphocyte Count 1.45 10^3/uL (1.2-3.4); Absolute Monocyte Count 0.52 10^3/uL (0.1-0.8); Absolute Neutrophil Count 3.88 10^3/uL (1.2-6.7); Basophils % 0.8; Eosinophils % 1.5; HCT 41.8 % (40.0-50.0); HGB 13.7 g/dL (13.5-17.5); Immature Grans % 1.2; Lymphocytes % 23.9; MCH 33.3 pg (27.0-33.0); MCHC 32.8 % (32.0-36.0); MCV 102 fL (80-95); MPV 8.3 fL (8.0-11.0); Monocytes % 8.6; Platelet Count 326 10^3/uL (130-400); RBC 4.11 10^6/uL (4.36-5.78); RDW 13.5 % (11.8-14.1); RDW-SD 50.4 fL; WBC 6.06 10^3/uL (4.4-10.8)
[2022-03-09 09:51] LABS: ALT 27 U/L (16-63); AST 23 U/L (15-37); Albumin 3.9 g/dL (3.4-5.0); Alkaline Phosphatase 116 U/L (46-116); Anion Gap 6.7 mmol/L (3-11); BUN 10 mg/dL (7-18); Bilirubin, Total 0.3 mg/dL (0.2-1.0); C-Reactive Protein 0.51 mg/dL (0.0-0.3); CO2 28.3 mmol/L (21.0-32.0); Calcium 9.3 mg/dL (8.5-10.1); Chloride 109 mmol/L (98-107); Glucose 88 mg/dL (74-106); Potassium 5.3 mmol/L (3.5-5.1); Sodium 144 mmol/L (136-145)
== END 2022-03-09 01:57 | disposition home or self-care (01) ==
LOC: LBO 01:56
PROVIDERS: PCP Nurse Practitioner Family; Visit Provider Internal Medicine Rheumatology
DX: M05.79 Rheumatoid arthritis with rheumatoid factor of multiple sites without organ or systems involvement (principal); Z79.899 Other long term (current) drug therapy
CPT/HCPCS: 36415; 80053; 85025; 86140

== ENCOUNTER 2022-03-09 08:58 | Outpatient (CLI) | payer MEDICAID, SELFPAY ==
--- NOTE | 2022-03-09 08:30 | DI.RAD_ITS ---
Exam(s) XR KNEE LT 2V AP,LAT EXAM: XR KNEE LT 2V AP,LAT CLINICAL HISTORY: ANNUAL F/U BILAT TKA. TECHNIQUE: 2D digital imaging was performed. Three views. COMPARISON: CR XR STANDING ALIGNMENT from 03/23/2021 CR XR KNEE RT 1V from 03/23/2021 CR XR KNEE LT 1V from 03/23/2021 FINDINGS: BONES: No acute fracture is present. No bony destructive lesion is seen. JOINTS: The knee prosthesis is normally aligned, unchanged from prior.. A small joint effusion is se en. SOFT TISSUE: Normal. IMPRESSION: Unremarkable knee prosthesis. DATA REPOSITORY: RADIATION DOSE DELIVERED:
--- NOTE | 2022-03-09 08:30 | DI.RAD_ITS ---
Exam(s) XR KNEE RT 2V AP,LAT EXAM: XR KNEE RT 2V AP,LAT CLINICAL HISTORY: ANNUAL F/U TKA. TECHNIQUE: 2D digital imaging was performed. Three views. COMPARISON: CR XR KNEE RT 1V from 03/23/2021 CR XR KNEE LT 2V AP,LAT from 03/09/2022 FINDINGS: BONES: There has been no change in the total knee prosthesis or appearance of the surrounding bone. No acute fracture is present. No bony destructive lesion is seen. JOINTS: The knee prosthesis normally aligned. Calcifications are again noted in the suprapatellar re gion. SOFT TISSUE: Vascular calcifications. Soft tissue swelling has decreased from previous exam. IMPRESSION: Stable appearance of right knee prosthesis. DATA REPOSITORY: RADIATION DOSE DELIVERED:
[2022-03-09 10:43] LABS: Clarity Cloudy; Nucleated Cells 1194 uL (0)
[2022-03-09 10:54] LABS: Mononuclear Cells 78 %; Polynuclear Cells 22 %
== END 2022-03-09 08:59 | disposition home or self-care (01) ==
PROVIDERS: PCP Nurse Practitioner Family; Referring Provider Nurse Practitioner Family; Visit Provider Student in an Organized Health Care Education/Training Program
DX: Z96.653 Presence of artificial knee joint, bilateral (principal); M25.462 Effusion, left knee; Z47.1 Aftercare following joint replacement surgery; M25.062 Hemarthrosis, left knee
CPT/HCPCS: 87077; 73560; 87070; 87186; 87205; 89051

== ENCOUNTER 2022-03-29 17:42 | Outpatient (REF) | payer MEDICAID, SELFPAY ==
[2022-03-29 15:18] LABS: Clarity Cloudy; Mononuclear Cells 71 %; Nucleated Cells 1846 uL (0); Polynuclear Cells 29 %
[2022-03-29 15:23] LABS: Clarity Cloudy; Mononuclear Cells 82 %; Nucleated Cells 1197 uL (0); Polynuclear Cells 18 %
[2022-03-29 15:55] LABS: Crystals (BF) No Crystals seen
== END 2022-03-29 17:43 | disposition home or self-care (01) ==
LOC: LBN 17:42
PROVIDERS: PCP Nurse Practitioner Family; Visit Provider Student in an Organized Health Care Education/Training Program
DX: T84.84XA Pain due to internal orthopedic prosthetic devices, implants and grafts, initial encounter (principal); Z96.652 Presence of left artificial knee joint; M25.461 Effusion, right knee
CPT/HCPCS: 87070; 87205; 89051; 89060

== ENCOUNTER → 2022-07-19 01:31 | Outpatient (CLI) | payer MEDICAID, SELFPAY ==
--- NOTE | 2022-07-19 08:15 | DI.RAD_ITS ---
Exam(s) RF JOINT INJECTION FLUORO GUID EXAM: RF JOINT INJECTION FLUORO GUID CLINICAL HISTORY: RT THUMB PAIN, ARTHRITIS CMC JOINT RT THUMB, FLUORO GUIDED INJECTION,M18.11 TECHNIQUE: 2D and realtime digital imaging was performed. COMPARISON: No exams were available for comparison FINDINGS: Fluoroscopy is utilized by Dr. Lofton during carpal injection. Hard copy shows injection at the gr eater multangular 1st metacarpal joint. IMPRESSION: RADIATION DOSE DELIVERED: tao Wilcox=0.045 mGy Total DLP
[2022-07-19] MEDS: Bupivacaine 0.5% Pres-Free 10 ML VIAL IJ (15:48)
[2022-07-19] MEDS: Omnipaque 300 MG/ML 10 ML BTL IJ (15:48)
[2022-07-19] MEDS: methylPREDNISolone ACETATE 40 MG/ML VIAL IJ (15:51)
--- NOTE | 2022-07-19 18:38 | OPPNE_ITS ---
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 He has had previous success with injections although left in the office was unsuccessful than fluoroscopically guided so is here today for a fluoroscopically guided right thumb CMC injection. Procedure Description: The right thumb was identified by the patient as the correct side. The proximal-radial border of the first metacarpal was identified and this soft spot was marked. The skin was prepped with ChloraPrep. Using fluoroscopy identified the starting point confirmed over the skin and its trajectory. The skin was anesthetized 1% lidocaine. Using fluoroscopic guidance I then directed a 22- gauge spinal needle into the first CMC joint. This was confirmed on x-ray. The 1st CMC joint was entered without difficulty. A small amount of Omnipaque was injected to confirm the intra-articular position. The injection, consisting of 2cc of 0.5% Bupivicaine and 40mg of DepoMedrol, was injected with minimal resistance. The patient tolerated the procedure well and the injection site was dressed with a Band-Aid.
== END ==
PROVIDERS: PCP Nurse Practitioner Family; Visit Provider Student in an Organized Health Care Education/Training Program
DX: M18.11 Unilateral primary osteoarthritis of first carpometacarpal joint, right hand (principal)
CPT/HCPCS: 20600; 77002; J1030

== ENCOUNTER 2022-07-19 02:26 | Outpatient (CLI) | payer MEDICAID, SELFPAY ==
[2022-07-19 10:30] LABS: Abs Immature Grans 0.06 10^3/uL (0.0-0.06); Absolute Basophil Count 0.05 10^3/uL (0.0-0.2); Absolute Eosinophil Count 0.08 10^3/uL (0.0-0.7); Absolute Lymphocyte Count 1.43 10^3/uL (1.2-3.4); Absolute Monocyte Count 0.43 10^3/uL (0.1-0.8); Absolute Neutrophil Count 2.09 10^3/uL (1.2-6.7); Basophils % 1.2; Eosinophils % 1.9; HCT 41.3 % (40.0-50.0); HGB 14.1 g/dL (13.5-17.5); Immature Grans % 1.4; Lymphocytes % 34.5; MCH 34.4 pg (27.0-33.0); MCHC 34.1 % (32.0-36.0); MCV 101 fL (80-95); MPV 8.3 fL (8.0-11.0); Monocytes % 10.4; Neutrophils % 50.6; Platelet Count 331 10^3/uL (130-400); RDW 12.4 % (11.8-14.1); RDW-SD 45.8 fL; WBC 4.14 10^3/uL (4.4-10.8)
[2022-07-19 11:15] LABS: ALT 74 U/L (16-63); AST 70 U/L (15-37); Albumin 3.8 g/dL (3.4-5.0); Alkaline Phosphatase 193 U/L (46-116); Anion Gap 9.9 mmol/L (3-11); BUN 12 mg/dL (7-18); Bilirubin, Total 0.4 mg/dL (0.2-1.0); C-Reactive Protein 0.67 mg/dL (0.0-0.3); CO2 25.1 mmol/L (21.0-32.0); CREATININE 0.8 mg/dL (0.70-1.30); Chloride 103 mmol/L (98-107); Estimated GFR 101.32 (mL/min/1.73m2); Glucose 96 mg/dL (74-106); Potassium 4.2 mmol/L (3.5-5.1); Sodium 138 mmol/L (136-145); Total Protein 7.2 g/dL (6.4-8.2)
== END 2022-07-19 02:27 | disposition home or self-care (01) ==
PROVIDERS: PCP Nurse Practitioner Family; Visit Provider Internal Medicine Rheumatology
DX: M05.79 Rheumatoid arthritis with rheumatoid factor of multiple sites without organ or systems involvement (principal); Z79.899 Other long term (current) drug therapy
CPT/HCPCS: 36415; 80053; 85025; 86140

== ENCOUNTER 2022-07-23 16:38 | Outpatient (REF) | payer MEDICAID, SELFPAY ==
[2022-07-23 17:14] LABS: Clarity Cloudy; Nucleated Cells 1318 uL (0)
[2022-07-23 18:56] LABS: Mononuclear Cells 82 %; Polynuclear Cells 18 %
== END 2022-07-23 16:39 | disposition home or self-care (01) ==
LOC: LBN 16:38
PROVIDERS: PCP Nurse Practitioner Family; Visit Provider Student in an Organized Health Care Education/Training Program
DX: T84.84XA Pain due to internal orthopedic prosthetic devices, implants and grafts, initial encounter (principal); Z96.652 Presence of left artificial knee joint
CPT/HCPCS: 87070; 87205; 89051

== ENCOUNTER → 2022-08-07 01:21 | Outpatient (CLI) | payer MEDICAID, SELFPAY ==
--- NOTE | 2022-08-07 06:45 | DI.CT_ITS ---
Exam(s) CT LOWER EXTREMITY LT WO EXAM: CT LOWER EXTREMITY LT WO CLINICAL HISTORY: PAINful total knee replacement, z96.652,T84.84xa. TECHNIQUE: Imaging Protocol: Axial computed tomography images with coronal and sagittal reformatted images were created and reviewed. CONTRAST MATERIAL: Intravenous: None COMPARISON: CR XR KNEE RT 1V from 03/23/2021 CR XR KNEE RT 2V AP,LAT from 03/09/2022 FINDINGS: LEFT KNEE: There is a joint effusion noted in the suprapatellar bursa. Components of the prosthesis appear to be in satisfactory position. No obvious fractures. Calcifica tion is seen in the medial collateral ligament and there is a vertically orientated 2.2 x 0.3 cm Kadeem egrini steatosis type osteophytic density adjacent to the outer aspect of the medial femoral condyle. No abnormal calcifications seen off the lateral aspect of the knee joint.. On the lower most aspect of the field of view there is an oblique line in the medial cortex of the ti bial diaphysis evident. This is possibly just a nutrient artery canal. Another similar line is seen posteriorly in the cortex. On axial images these have the appearance of nutrient artery canals. IMPRESSION: No obvious loosening of the prosthesis components. No fractures evident. However, there is calcification in the medial collateral ligament in the soft t issues lateral to the medial femoral condyle having Cnsfjknpys-Fpgako-xspc configuration. No evidence of osteomyelitis. RADIATION DOSE DELIVERED: 410.39mGy.cm Total DLP DATA REPOSITORY: All CT scans at this facility are submitted to the National Radiology Data Registry (NRDR) Dose Index Registry (DIR) with the [employer] ([employer]). RADIATION OPTIMIZATION: All CT scans at this facility use at least one of these dose optimization te chniques: automated exposure control; mA and/or kV adjustment per patient size (includes targeted exa ms where dose is matched to clinical indication); or iterative reconstruction.
== END ==
PROVIDERS: PCP Nurse Practitioner Family; Visit Provider Student in an Organized Health Care Education/Training Program
DX: T84.84XA Pain due to internal orthopedic prosthetic devices, implants and grafts, initial encounter (principal); Z96.652 Presence of left artificial knee joint; M76.892 Other specified enthesopathies of left lower limb, excluding foot
CPT/HCPCS: 73700

== ENCOUNTER 2022-08-22 12:24 | Day surgery (SDC) | payer MEDICAID, SELFPAY ==
[2022-08-22] VITALS (10 sets, daily range): BP systolic 112–140; BP diastolic 81–95; PULSE 63–92; RESP 14–18; TEMP 36.2–36.7; O2SAT 95–99; BMI 34.4
--- NOTE | 2022-08-22 09:37 | PDOC.DSDIS_ITS ---
Date of service: 08/22/22 Time of Service: 16:41 Discharge Plan Disposition Patient Disposition: HOME Condition: Good Discharge Details Reason For Visit: Right thumb CMC; painful left TKA Attending Provider: Fabricio Lofton Primary Care Provider: Brandi Jacob Home Meds and New Rx's Prescriptions: New acetaminophen 500 mg tablet 500 mg PO Q6H PRN (Reason: pain) Qty: 60 2RF ibuprofen 600 mg tablet 600 mg PO TID PRN (Reason: pain) Qty: 60 0RF oxycodone 5 mg tablet 5 mg PO Q4H PRN (Reason: severe post-operative pain) Qty: 18 0RF Rx Instructions: Take one tablet up to every 4 hours as needed for severe pain Continued folic acid 1 mg tablet 1 mg PO DAILY naloxone [Narcan] 4 mg/actuation spray,non-aerosol 4 mg intranasal Q2-3M PRN (Reason: opioid overdose) Qty: 2 0RF Rx Instructions: spray 1 dose into ONE nostril; alternate nostrils w each dose until help arrives zolpidem 6.25 MG tablet,ext release multiphase 6.25 mg PO PRN triamcinolone acetonide 0.1 % cream 1 applic TP BID PRN omeprazole 10 mg capsule,delayed release(DR/EC) 40 mg PO DAILY lisinopril 30 mg tablet 30 mg PO DAILY valacyclovir 1 gram tablet 2,000 mg PO Q12H PRN methotrexate sodium 10 mg tablet 10 mg PO QWEEK aspirin 81 mg Tablet,Delayed Release (Dr/Ec) 81 mg PO DAILY One-A-Day Men's Multivitamin 400-20-300 mcg Tablet 1 tab PO DAILY hydroxychloroquine 200 mg tablet 200 mg PO BID Label Comments: TK 1 T PO BID Discontinued acetaminophen 500 mg capsule 1,000 mg PO Q8H PRN PRNQty: 90 0RF ibuprofen 200 mg Tablet 400 mg PO BID Discharge Instructions Additional Instructions: Thumb CMC and Knee Discharge Instructions Activity: You should keep the hand/thumb elevated as much as possible for the first few days. You may use the other fingers as tolerated but avoid trying to do too much too soon. You may perform light activities with the splint in place. You may weight bear as tolerated for the knee and use crutches as needed. Dressing/Cast: Your splint should stay in place at all times. Do NOT get it wet. You may loosen the CAREY wrap if you feel it is too tight and then rewrap more loosely. The knee dressing should stay on for 2-3 days. You may then remove it and replace it with a Bandaid. Medications: - You should take Tylenol and Ibuprofen for baseline pain control. - You have Oxycodone for breakthrough pain. - You may apply ice over the thumb and use the CryoCuff for the knee. Follow-up: 10-14 days Stand Alone Forms: [facility] Referrals: Fabricio Lofton MD [ [facility] STAFF PHYSICIAN] - Equipment/Supplies: Partial Weight Bearing Crutches Activity:: Elevate Remove Dressings/Wound Care:: Do Not Remove Shower/Bathe:: Cover Diet:: As Tolerated Discharge Orders Discharge Orders: Discharge Order (Routine); Ordered 08/22/22 Ordered By: Cheryl Haynes DS: Diagnosis Discharge Diagnosis (1) Painful total knee replacement, left: Status: Acute (2) Arthritis of carpometacarpal (CMC) joint of right thumb: Status: Acute
--- NOTE | 2022-08-22 12:34 | W.ANESPRE ---
General Info Height: 5 ft 7 in Weight: 99.79 kg Body Mass Index (BMI): 34.4 Surgical Procedure: Operation Date: 08/22/22 14:25 Proposed Procedure Side Surgeon p Thumb CMC Arthroplasty Right Fabricio Lofton MD s Knee Arthroscopy Synovectomy Left Fabricio Lofton MD Meds Allergies and Home Medications Allergies Allergy/AdvReac Type Severity Reaction Status Date / Time No Known Allergies Allergy Verified 08/21/22 09:24 Home Medication Medication Instructions Recorded zolpidem 6.25 mg tablet,extended 6.25 mg PO PRN 12/07/15 release,multiphase omeprazole 10 mg capsule,delayed 40 mg PO DAILY 12/17/19 release triamcinolone acetonide 0.1 % 1 applic topical BID PRN 12/17/19 topical cream lisinopril 30 mg tablet 30 mg PO DAILY 07/01/20 folic acid 1 mg tablet 1 mg PO DAILY 07/12/20 hydroxychloroquine 200 mg tablet 200 mg PO BID 09/26/20 valacyclovir 1 gram tablet 2,000 mg PO Q12H PRN 02/22/21 naloxone 4 mg/actuation nasal 4 mg intranasal Q2-3M PRN opioid 03/09/21 spray (Narcan) overdose #2 ea methotrexate sodium 10 mg tablet 10 mg PO QWEEK 09/28/21 aspirin 81 mg tablet,delayed 81 mg PO DAILY 08/21/22 release xgjeytlh-dphedprg-gfnyp acid 400 1 tab PO DAILY 08/21/22 mcg-vit K 20 mcg-lycop 300 mcg tablet (One-A-Day Men's Multivitamin) acetaminophen 500 mg tablet 500 mg PO Q6H PRN pain #60 tabs 08/22/22 ibuprofen 600 mg tablet 600 mg PO TID PRN pain #60 tabs 08/22/22 oxycodone 5 mg tablet 5 mg PO Q4H PRN severe 08/22/22 post-operative pain #18 tabs Current Visit Medications: Current Medications Generic Name Dose Route Start Last Admin Trade Name Freq PRN Reason Stop Dose Admin Acetaminophen 650 mg 08/22/22 09:34 Acetaminophen 325 Mg Tab PO Q4H PRN PRN Ringer's Solution 1,000 mls @ 80 mls/hr 08/22/22 06:00 IV 09/20/22 23:59 INFUSION HORTENCIA Cefazolin Sodium/Dextrose 2 gm in 50 mls @ 100 mls/hr 08/22/22 06:00 Ancef Duplex IVPB 09/20/22 23:59 PREOP HORTENCIA IV Miscellaneous Supplies 1 each 08/22/22 06:00 Iv Access IV 09/20/22 23:59 DIRECTED HORTENCIA Oxycodone HCl 5 mg 08/22/22 09:44 Oxycodone 5 Mg Tab PO Q3H PRN PRN Pain Sodium Chloride 0 ml 08/22/22 06:00 Normal Saline Flush 10 Ml Syr IV 09/20/22 23:59 PRN PRN Sodium Chloride 0 ml 08/22/22 06:00 Normal Saline 10 Ml Vial IJ 09/20/22 23:59 DIRECTED PRN Sterile Water 0 ml 08/22/22 06:00 Water,Injection,Sterile 10 Ml Vial IJ 09/20/22 23:59 DIRECTED PRN PFSH Active Problems Active Problems: Problem Status Onset Code HTN (hypertension) I10 Right wrist sprain S63.501A Transient visual loss H53.[address] scan of head R93.0 Tachycardia R00.0 Osteoarthritis of right hip M16.11 Right rotator cuff tear arthropathy M75.101, M12.811 Complete tear of right rotator cuff M75.121 Hernia, inguinal K40.90 History of total right hip replacement 10/19/20 Z96.641 Traumatic tear of right rotator cuff S46.011A Tendonitis of long head of biceps brachii of right shoulder M75.21 Bursitis of right shoulder M75.51 S/P right rotator cuff repair Z98.890 Left knee DJD M17.12 Hx of urinary frequency Z87.898 History of total bilateral knee replacement (TKR) 03/08/21 Z96.653 S/P arthroscopy of right shoulder 11/25/20 Z98.890 Pes anserine bursitis M70.50 Chest pain R07.9 History of total left knee replacement Z96.652 Hemarthrosis involving knee joint M25.069 Painful total knee replacement, left T84.84XA, Z96.652 Arthritis of left wrist M19.032 Arthritis of carpometacarpal (CMC) joint of right thumb M18.11 Effusion, right knee M25.461 Screening for colon cancer Z12.11 Family history of colon cancer Z80.0 Diastasis recti M62.08 Medical History Medical History (Updated 08/21/22 @ 09:49 by Latasha Banerjee) Benign prostatic hypertrophy without urinary obstruction Blind left eye BPH (benign prostatic hyperplasia) Cataract, congenital Congenital cataract of left eye COVID 07/05 Dental infection Diverticulosis Diverticulosis GERD (gastroesophageal reflux disease) H/O sudden visual loss Hernia, umbilical repaired 12/26/18, Dr Cheryl Mcdaniel, [facility] Herpes labialis cold sores Hip pain, right History of trigger finger repaired Hx of rheumatoid arthritis pt. 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 reports when 15 years old foot was put back on above the ankle Arthroplasty of knee Right knee was not a knee replacement History of surgery on arm L, bone lengthened History of surgery on left wrist History of umbilical hernia repair Hx of knee surgery Rotator Cuff Repair Left S/P inguinal hernia repair using synthetic patch (~09/28/20) Status post hip replacement right Tobacco Smoking/Tobacco Use Status: Former Tobacco Use Alcohol Alcohol Intake: former Substance Use Substance use: Never Substance use type: does not use Details: no alcohol or tobacco for 20 years Vital Signs and Lab Results Lab Results Blood Type / Crossmatch: No Data to Display Complete Blood Count: No Data to Display Complete Metabolic Panel: No Data to Display Liver Function Panel: No Data to Display Coagulation Panel: No Data to Display Cardiac Panel: No Data to Display Arterial Blood Gas: No Data to Display Venous Blood Gas: No Data to Display Pancreas Panel: No Data to Display Thyroid Panel: No Data to Display Infectious Disease: No Data to Display Blood Cultures: No Data to Display Toxicology Panel: No Data to Display Imaging and Studies Imaging and Studies Study information below may be from another EMR and interpreted by another provider. Please see original notes in EMR for more complete details. EKG Summary: 08/03: Conclusion Sinus rhythm...normal P axis, V-rate 60- 99 Normal Electrocardiogram Echocardiogram Summary: 05/03/2020 Conclusion Left Ventricle : The left ventricle is normal size. The left ventricular systolic function is normal. The left ventricular ejection fraction is within the normal range. There is normal left ventricular wall thickness. There is normal LV segmental wall motion. The left ventricular diastolic function is normal. LVEF is 55-60%. Right Ventricle : The right ventricle is normal size. The right ventricular systolic function is normal. The RVSP is 23 mmHg. Atria : The left atrium size is normal. The right atrium size is normal. The interatrial septum is intact with no evidence for an atrial septal defect (this was not a bubble study). Valves: There are no hemodynamically significant valvular lesions. Great Vessels : The ascending aorta is normal in size. Aortic arch is normal in caliber. IVC is normal in size and collapses >50% with inspiration. There is no prior study available for comparison. Carotid Artery Summary:: 01/15/2020 RIGHT CAROTID ARTERY: Plaque: Minimal. Velocity elevation: None. LEFT CAROTID ARTERY: Plaque: Mild calcific plaque at the left common carotid bulb and proximal left internal carotid artery. The left mid internal carotid artery is mildly tortuous. Velocity elevation: None. VERTEBRAL ARTERIES: Antegrade flow. Anesthesia Assessment and Plan Anesthesia History Personal History: No History of Anesthesia Complications Family History: No Family History of Anesthesia Complications Exercise Tolerance Exercise Tolerance: Metabolic Equivalents>4 Implantable Cardiac Device Does patient have a Pacemaker or an ICD?: No Airway Exam Known Difficult Airway: No Mallampati Class: 2 Mouth Opening: Normal (> 3cm) Thyromental Distance: Greater than 3 cm Neck Range of Motion: Full ROM Neck Circumference: Normal Teeth Condition: Normal Dentition and Removable Dentures/Plates Upper Anesthesia Plan Resuscitation Status: Full Code Anesthesia Technique: General Anesthesia Airway Planned: LMA Monitors Used: Standard Monitors Preoperative Comments:: 62 yo male for thumb arthroplasty and knee scope. Sig PMHx: HTN, CVA/transient visual loss, ELLE, former smoker/EtOH, methotrexate. Previous Airway: - LMA 5. - igel 4. - easy mask, glide 3 grade 1.
[2022-08-22] MEDS: Lactated Ringers 1,000 ML 80 ML IV (13:05)
--- NOTE | 2022-08-22 13:37 | W.ANESPRE ---
General Info Date of Service Date Performed: 08/22/22 Height: 5 ft 7 in Weight: 99.79 kg Body Mass Index (BMI): 34.4 Surgical Procedure: Operation Date: 08/22/22 14:25 Proposed Procedure Side Surgeon p Thumb CMC Arthroplasty Right Fabricio Lofton MD s Knee Arthroscopy Synovectomy Left Fabricio Lofton MD Meds Allergies and Home Medications Allergies Allergy/AdvReac Type Severity Reaction Status Date / Time No Known Allergies Allergy Verified 08/21/22 09:24 Home Medication Medication Instructions Recorded zolpidem 6.25 mg tablet,extended 6.25 mg PO PRN 12/07/15 release,multiphase omeprazole 10 mg capsule,delayed 40 mg PO DAILY 12/17/19 release triamcinolone acetonide 0.1 % 1 applic topical BID PRN 12/17/19 topical cream lisinopril 30 mg tablet 30 mg PO DAILY 07/01/20 folic acid 1 mg tablet 1 mg PO DAILY 07/12/20 hydroxychloroquine 200 mg tablet 200 mg PO BID 09/26/20 valacyclovir 1 gram tablet 2,000 mg PO Q12H PRN 02/22/21 naloxone 4 mg/actuation nasal 4 mg intranasal Q2-3M PRN opioid 03/09/21 spray (Narcan) overdose #2 ea methotrexate sodium 10 mg tablet 10 mg PO QWEEK 09/28/21 aspirin 81 mg tablet,delayed 81 mg PO DAILY 08/21/22 release nzmrgdvm-izgusfwx-ezrwu acid 400 1 tab PO DAILY 08/21/22 mcg-vit K 20 mcg-lycop 300 mcg tablet (One-A-Day Men's Multivitamin) acetaminophen 500 mg tablet 500 mg PO Q6H PRN pain #60 tabs 08/22/22 ibuprofen 600 mg tablet 600 mg PO TID PRN pain #60 tabs 08/22/22 oxycodone 5 mg tablet 5 mg PO Q4H PRN severe 08/22/22 post-operative pain #18 tabs Current Visit Medications: Current Medications Generic Name Dose Route Start Last Admin Trade Name Freq PRN Reason Stop Dose Admin Acetaminophen 650 mg 08/22/22 09:34 Acetaminophen 325 Mg Tab PO Q4H PRN PRN Ringer's Solution 1,000 mls @ 80 mls/hr 08/22/22 06:00 08/22/22 13:05 IV 09/20/22 23:59 80 mls/hr INFUSION HORTENCIA Administration Cefazolin Sodium/Dextrose 2 gm in 50 mls @ 100 mls/hr 08/22/22 06:00 Ancef Duplex IVPB 09/20/22 23:59 PREOP HORTENCIA IV Miscellaneous Supplies 1 each 08/22/22 06:00 Iv Access IV 09/20/22 23:59 DIRECTED HORTENCAI Oxycodone HCl 5 mg 08/22/22 09:44 Oxycodone 5 Mg Tab PO Q3H PRN PRN Pain Sodium Chloride 0 ml 08/22/22 06:00 Normal Saline Flush 10 Ml Syr IV 09/20/22 23:59 PRN PRN Sodium Chloride 0 ml 08/22/22 06:00 Normal Saline 10 Ml Vial IJ 09/20/22 23:59 DIRECTED PRN Sterile Water 0 ml 08/22/22 06:00 Water,Injection,Sterile 10 Ml Vial IJ 09/20/22 23:59 DIRECTED PRN PFSH Active Problems Active Problems: Problem Status Onset Code HTN (hypertension) I10 Right wrist sprain S63.501A Transient visual loss H53.[address] scan of head R93.0 Tachycardia R00.0 Osteoarthritis of right hip M16.11 Right rotator cuff tear arthropathy M75.101, M12.811 Complete tear of right rotator cuff M75.121 Hernia, inguinal K40.90 History of total right hip replacement 10/19/20 Z96.641 Traumatic tear of right rotator cuff S46.011A Tendonitis of long head of biceps brachii of right shoulder M75.21 Bursitis of right shoulder M75.51 S/P right rotator cuff repair Z98.890 Left knee DJD M17.12 Hx of urinary frequency Z87.898 History of total bilateral knee replacement (TKR) 03/08/21 Z96.653 S/P arthroscopy of right shoulder 11/25/20 Z98.890 Pes anserine bursitis M70.50 Chest pain R07.9 History of total left knee replacement Z96.652 Hemarthrosis involving knee joint M25.069 Painful total knee replacement, left T84.84XA, Z96.652 Arthritis of left wrist M19.032 Arthritis of carpometacarpal (CMC) joint of right thumb M18.11 Effusion, right knee M25.461 Screening for colon cancer Z12.11 Family history of colon cancer Z80.0 Diastasis recti M62.08 Medical History Medical History (Updated 08/21/22 @ 09:49 by Latasha Banerjee) Benign prostatic hypertrophy without urinary obstruction Blind left eye BPH (benign prostatic hyperplasia) Cataract, congenital Congenital cataract of left eye COVID 07/05 Dental infection Diverticulosis Diverticulosis GERD (gastroesophageal reflux disease) H/O sudden visual loss Hernia, umbilical repaired 12/26/18, Dr Cheryl Mcdaniel, [facility] Herpes labialis cold sores Hip pain, right History of trigger finger repaired Hx of rheumatoid arthritis pt. 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 reports when 15 years old foot was put back on above the ankle Arthroplasty of knee Right knee was not a knee replacement History of surgery on arm L, bone lengthened History of surgery on left wrist History of umbilical hernia repair Hx of knee surgery Rotator Cuff Repair Left S/P inguinal hernia repair using synthetic patch (~09/28/20) Status post hip replacement right Tobacco Smoking/Tobacco Use Status: Former Tobacco Use Alcohol Alcohol Intake: former Substance Use Substance use: Never Substance use type: does not use Details: no alcohol or tobacco for 20 years Vital Signs and Lab Results Vital Signs Most Recent Vital Signs in EMR: Most Recent Vital Signs Temp Pulse Resp BP Pulse Ox 36.6 C 92 H 18 132/86 95 08/22/22 12:41 08/22/22 12:41 08/22/22 12:41 08/22/22 12:41 08/22/22 12:41 Lab Results Blood Type / Crossmatch: No Data to Display Complete Blood Count: No Data to Display Complete Metabolic Panel: No Data to Display Liver Function Panel: No Data to Display Coagulation Panel: No Data to Display Cardiac Panel: No Data to Display Arterial Blood Gas: No Data to Display Venous Blood Gas: No Data to Display Pancreas Panel: No Data to Display Thyroid Panel: No Data to Display Infectious Disease: No Data to Display Blood Cultures: No Data to Display Toxicology Panel: No Data to Display Imaging and Studies Imaging and Studies Study information below may be from another EMR and interpreted by another provider. Please see original notes in EMR for more complete details. EKG Summary: 08/03: Conclusion Sinus rhythm...normal P axis, V-rate 60- 99 Normal Electrocardiogram Echocardiogram Summary: 05/03/2020 Conclusion Left Ventricle : The left ventricle is normal size. The left ventricular systolic function is normal. The left ventricular ejection fraction is within the normal range. There is normal left ventricular wall thickness. There is normal LV segmental wall motion. The left ventricular diastolic function is normal. LVEF is 55-60%. Right Ventricle : The right ventricle is normal size. The right ventricular systolic function is normal. The RVSP is 23 mmHg. Atria : The left atrium size is normal. The right atrium size is normal. The interatrial septum is intact with no evidence for an atrial septal defect (this was not a bubble study). Valves: There are no hemodynamically significant valvular lesions. Great Vessels : The ascending aorta is normal in size. Aortic arch is normal in caliber. IVC is normal in size and collapses >50% with inspiration. There is no prior study available for comparison. Carotid Artery Summary:: 01/15/2020 RIGHT CAROTID ARTERY: Plaque: Minimal. Velocity elevation: None. LEFT CAROTID ARTERY: Plaque: Mild calcific plaque at the left common carotid bulb and proximal left internal carotid artery. The left mid internal carotid artery is mildly tortuous. Velocity elevation: None. VERTEBRAL ARTERIES: Antegrade flow. Anesthesia Assessment and Plan Anesthesia History Personal History: No History of Anesthesia Complications Family History: No Family History of Anesthesia Complications Exercise Tolerance Exercise Tolerance: Metabolic Equivalents>4 Pertinent Negatives Pertinent Negatives: No Symptoms of GERD, No Major Cardiovascular Symptoms or Complaints and No Major Pulmonary Symptoms or Complaints Cardiac & Pulmonary Exam Cardiac Exam: Normal S1/S2 Heart Sounds Pulmonary Exam: Clear Bilateral Breath Sounds Implantable Cardiac Device Does patient have a Pacemaker or an ICD?: No Airway Exam Known Difficult Airway: No Mallampati Class: 2 Mouth Opening: Normal (> 3cm) Thyromental Distance: Greater than 3 cm Neck Range of Motion: Full ROM Neck Circumference: Normal Teeth Condition: Normal Dentition and Removable Dentures/Plates Upper ASA Classification ASA Score: ASA 2 Emergency Case?: No NPO Status NPO Status: NPO Clears >2 hours, Solids >8 hours Anesthesia Plan Resuscitation Status: Full Code Anesthesia Technique: General Anesthesia Airway Planned: LMA Pain Management: Surgeon and patient request nerve block (Discussed rescue block with patient in PACU if indicated) Monitors Used: Standard Monitors
[2022-08-22] MEDS: ceFAZolin 2 GM/50 ML BAG IVPB (14:25)
[2022-08-22] MEDS: Bupivacaine 0.25% Pres-Free 30 ML VIAL (15:30)
[2022-08-22] MEDS: HYDROmorphone 2 MG/ML SYR IVP ×2 (16:25→16:35)
[2022-08-22] MEDS: Normal Saline 10 ML VIAL IJ (16:25)
[2022-08-22] MEDS: fentaNYL 100 MCG/2 ML VIAL IVP ×2 (16:43→16:50)
--- NOTE | 2022-08-22 16:51 | W.PM.OP ---
Date of service: 08/22/22 Time of Service: 16:00 Operative Note Operative Note DATE OF PROCEDURE: 08/22/22 PRE-OP DIAGNOSIS: Right Thumb CMC Arthirits, Left Knee Synovitis POST-OP DIAGNOSIS: same PROCEDURE: Arthroscopic Synovectomy of 3 Compartments - Left Knee, Right Thumb Trapezial Resection with Suture Suspensionplasty SURGEON: Fabricio Lofton SERGING MACHINE OPERATOR: Jay Wells ANESTHESIA TYPE: General LMA/ETT Refer to Anesthesia Record ESTIMATED BLOOD LOSS: 5 PATHOLOGY: none sent COMPLICATIONS: None Patient was transported to: PACU Patient's condition: stable Indications: I have seen Eduardo in clinic for 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 Nonoperative measures were exhausted but disability due to lack of motion persisted. I discussed knee arthroscopy with synovectomy with the patient. I reviewed the risks of the procedure to include, but not limited to, bleeding, infection, pain, continued stiffness, recurrence, blood clot. Despite these risks, the patient elected to proceed. Additionally, he had significant arthritis of the thumb CMC joint which also had failed conservative options including bracing, NSAIDS, and injections. Given this failure I offered thumb CMC replacement. I reviewed the risks of the procedure to include bleeding, ifnection, subsidence, pain, stiffness, damage to nerves and vessels, hardware failure. Despite these risks, he elects to proceed. Findings: A 3 compartment synovectomy was performed of the left knee. There was significant scar tissue, especially around the patella which was debrided along with the medial lateral gutters. Additionally a CBC arthroplasty of the right thumb was performed with trapezial resection and suture suspensioplasty. Procedure Description: Eduardo was greeted in the preoperative holding area where the correct side was identified and marked. The consent was reviewed with the patient and signed. The history and physical was updated. All questions were answered. He was taken back to the operating room. The patient was placed into the supine position on the operating room table. All bony prominences were well padded. Prophylactic antibiotics in the form of Cefazolin were administered. The left leg was then prepped with Chloraprep and draped in a standard fashion with stockinette and extremity drape. A timeout to confirm correct identity, side and site, procedure, allergies, anesthesia, and medical concerns was performed. The leg was placed into a pneumatic leg ng, SPIDER2. A standard lateral portal was made at the lateral border of the patella tendon in line with the inferior pole of the patella, soft spot. The skin and deep tissue was incised sharply and the blunt trochar was inserted atraumatically. At this point had visualization of the femoral component. A superolateral portal was then established with spinal needle localization just superior and lateral to the patella. A knife was taken down through the skin and soft tissue to enter the knee joint. Starting in the superior compartment above the femoral component and anterior to the femur I released all scarring between the anterior femoral synovium and the overlying extensor mechanism. This was taken through all of any noticeable scar tissue until the superior patellar pouch was fully released and mobile. This resection was carried out mostly with electrocautery as well as shaver. Once this was released fully from lateral to medial superiorly I then continue working down the lateral gutter. All scar tissue in the lateral gutter was released so there is normal space and movement between the capsular tissues and the edge of the femoral component and femur. This was taken down through the lateral gutter such that I was able to identify the polyethylene to its posterior corner. Once again, all scar tissue in this area was resected so the polyethylene was easily visible and there is no interposed tissue in the back or the polyethylene was identified. I think continue to work anteriorly. To continue the synovectomy from the lateral compartment to the anterior compartment into the medial compartment, I placed a medial portal under spinal needle localization. Once this was in place it became another working portal and I continued the synovectomy through the anterior compartment to the medial compartment. Once again, I freed up the medial gutter so I was able to visualize the polyethylene from the anterior posterior margins. There is no interposed tissue after full synovectomy was performed. Adhesions between the capsule and the femur were released. This was continued up the medial gutter until it met up with the releases performed previously in the superior compartment. Any remnant scar tissue from around the patella was then removed with a shaver and electrocautery. The arthroscope was brought back into the suprapatellar pouch and the leg was in full extension. The knee was thoroughly irrigated with the arthroscopic fluid on high flow and pressure. Inflow was stopped and excess fluid was removed. The wounds were closed with 4-0 Nylon. 0.25% bupivacaine was injected around the portal sites and into the knee. The wounds were dressed with Xeroform, 4x4 gauze, ABD pad, Kerlix and an CAREY wrap. A cryo-cuff was applied. Attention was then turned to the right thumb. The right was then prepped with ChloraPrep and draped in a standard fashion after a nonsterile tourniquet was placed high up onto the arm.? The surgical site was drawn on the skin overlying the dorsal radial border of the wrist.? The planned surgical field was anesthetized with 0.25% bupivacaine with epinephrine.? The limb was exsanguinated and the tourniquet was inflated where it stayed for 45 minutes.? A 3 cm incision was made longitudinally over the radial wrist from the level of the radial styloid to just past the base of the first metacarpal.? The skin was incised only.? The deep tissue and subcutaneous fat was dissected with a tenotomy scissors trying to protect branches of the superficial radial nerve.? Any branches that were identified were retracted out of the way.? The first compartment extensor tendons were then identified.? The interval between EPL and EPB was identified.? The base of the first metacarpal was palpated.? A needle was placed into the joint between the first metacarpal and the trapezium.? A single x-ray was used to confirm appropriate positioning.? The capsule of the trapezium was then incised.? The radial border of the bone was identified.? Soft tissues around trapezium were dissected bluntly to allow relaxation of vital arterial structures traversing the trapezium.? Using a [place] blade the capsule was elevated off the trapezium in a subperiosteal fashion.? Once it appeared to have all the capsular attachments released, the tap was removed.? The trapezium was then removed using a rongeur.? The wound was inspected to make sure all portions of the trapezium were removed.? X-ray was used to confirm appropriate removal of all bony fragments.? The wound was then thoroughly irrigated.? Using a 2-0 FiberWire then performed a suture suspension plasty.? This was done by incorporating capsule and attachments of the APL at the base of the first metacarpal and creating a sling connected to the deep flexor carpi radialis tendon seen traversing deep within the wound towards the second metacarpal.? This was done twice to create a crossing network of 2-0 suture.? This was then tied overlying the base of the first metacarpal making sure not to over tighten and hourglass the tendons.? This provided support to the first metacarpal to prevent any excessive subsidence.? The tourniquet was then released.? There is no significant bleeding.? The capsule of the trapezium was then reapproximated with a 2-0 Vicryl.? The skin was closed with 4-0 nylon. The hand was dressed with 4 x 4's, web roll into a soft thumb spica splint.?All counts are correct.? Patient was transferred back to PACU in a stable condition.? The patient tolerated the procedure well and was returned to the Same Day Surgery area in a stable condition suffering no known complication..
--- NOTE | 2022-08-22 17:07 | W.ANESPOSTOP ---
Postoperative Evaluation Date, Time and Location Date Performed: 08/22/22 Time Performed: 17:07 Patient Location: Day Surgery Unit Vital Signs Most Recent Imported Vital Signs: Most Recent Vital Signs Temp Pulse Resp BP Pulse Ox 36.5 C 63 14 130/91 H 97 08/22/22 16:15 08/22/22 16:15 08/22/22 16:15 08/22/22 16:15 08/22/22 16:15 Pain Score Most Recent Pain Score: Most Recent Pain Score Pain Level 10 08/22/22 16:15 Assessment Mental Status: Awake (Alert & Oriented to Patient Baseline) Airway and Respiratory Function: Patent airway with normal (patient baseline) respiratory exam Cardiovascular Function: Hemodynamically Stable Hydration Status: Adequately Hydrated Nausea & Vomiting: No Nausea or Vomiting Pain: Pain is Moderate or Severe Postoperative Pain Management: Pain being addressed with medication (CMC Joint) Peripheral Nerve Block: Patient did not receive a nerve block
[2022-08-22] MEDS: oxyCODONE 5 MG TAB PO (17:11)
== END 2022-08-22 18:00 | disposition home or self-care (01) ==
PROVIDERS: PCP Nurse Practitioner Family; Visit Provider Student in an Organized Health Care Education/Training Program
PROC: (CPT 25447; principal; 2022-08-22 14:15)
PROC: (CPT 29870; 2022-08-22 14:15)
DX: T84.84XA Pain due to internal orthopedic prosthetic devices, implants and grafts, initial encounter (principal); Z96.652 Presence of left artificial knee joint; M18.11 Unilateral primary osteoarthritis of first carpometacarpal joint, right hand
CPT/HCPCS: 25447; 29876; 76000; J0690; J1100; J1170; J2405; J3010

== ENCOUNTER 2022-09-05 02:47 | Outpatient (CLI) | payer MEDICAID, SELFPAY ==
[2022-09-05 16:53] LABS: Abs Immature Grans 0.05 10^3/uL (0.0-0.06); Absolute Basophil Count 0.05 10^3/uL (0.0-0.2); Absolute Eosinophil Count 0.08 10^3/uL (0.0-0.7); Absolute Monocyte Count 0.61 10^3/uL (0.1-0.8); Absolute Neutrophil Count 5.32 10^3/uL (1.2-6.7); Basophils % 0.7; Eosinophils % 1.1; HCT 39.1 % (40.0-50.0); HGB 13.3 g/dL (13.5-17.5); Immature Grans % 0.7; Lymphocytes % 19.7; MCH 33.8 pg (27.0-33.0); MCV 100 fL (80-95); MPV 8.6 fL (8.0-11.0); Neutrophils % 69.8; Platelet Count 323 10^3/uL (130-400); RBC 3.93 10^6/uL (4.36-5.78); RDW 12.5 % (11.8-14.1); RDW-SD 45.8 fL; WBC 7.61 10^3/uL (4.4-10.8)
[2022-09-05 17:32] LABS: ALT 24 U/L (16-63); AST 18 U/L (15-37); Alkaline Phosphatase 112 U/L (46-116); Anion Gap 9.8 mmol/L (3-11); BUN 10 mg/dL (7-18); Bilirubin, Total 0.4 mg/dL (0.2-1.0); C-Reactive Protein 0.34 mg/dL (0.0-0.3); CO2 24.2 mmol/L (21.0-32.0); CREATININE 0.9 mg/dL (0.70-1.30); Calcium 8.9 mg/dL (8.5-10.1); Chloride 103 mmol/L (98-107); Estimated GFR 97.78 (mL/min/1.73m2); Glucose 102 mg/dL (74-106); Potassium 3.1 mmol/L (3.5-5.1); Sodium 137 mmol/L (136-145); Total Protein 7.5 g/dL (6.4-8.2)
== END 2022-09-05 02:48 | disposition home or self-care (01) ==
LOC: LBO 02:47
PROVIDERS: PCP Nurse Practitioner Family; Visit Provider Internal Medicine Rheumatology
DX: M05.79 Rheumatoid arthritis with rheumatoid factor of multiple sites without organ or systems involvement (principal); Z79.899 Other long term (current) drug therapy
CPT/HCPCS: 36415; 80053; 85025; 86140

== ENCOUNTER 2022-11-16 08:55 | Outpatient (CLI) | payer MEDICAID, SELFPAY ==
--- NOTE | 2022-11-16 08:30 | DI.RAD_ITS ---
Exam(s) XR WRIST LT COMPLETE EXAM: XR WRIST LT COMPLETE CLINICAL HISTORY: eval L thumb CMC pain. TECHNIQUE: 2D digital imaging was performed. COMPARISON: No exams were available for comparison FINDINGS: There is a healed fracture at the midshaft of ulna. 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 Mu ltilevel degenerative changes noted including at the 1st carpometacarpal joint. IMPRESSION: Absence of proximal carpal row bones. Advanced degenerative changes. DATA REPOSITORY: RADIATION DOSE DELIVERED:
== END 2022-11-16 08:56 | disposition home or self-care (01) ==
LOC: DIORS 08:55
PROVIDERS: PCP Nurse Practitioner Family; Referring Provider Nurse Practitioner Family; Visit Provider Student in an Organized Health Care Education/Training Program
DX: M18.12 Unilateral primary osteoarthritis of first carpometacarpal joint, left hand (principal)
CPT/HCPCS: 73110

== ENCOUNTER 2023-01-16 14:54 | Outpatient (CLI) | payer MEDICAID, SELFPAY ==
[2023-01-16 14:36] LABS: Abs Immature Grans 0.08 10^3/uL (0.0-0.06); Absolute Basophil Count 0.05 10^3/uL (0.0-0.2); Absolute Eosinophil Count 0.05 10^3/uL (0.0-0.7); Absolute Lymphocyte Count 1.28 10^3/uL (1.2-3.4); Absolute Monocyte Count 0.72 10^3/uL (0.1-0.8); Absolute Neutrophil Count 7.31 10^3/uL (1.2-6.7); Basophils % 0.5; Eosinophils % 0.5; HCT 39.8 % (40.0-50.0); HGB 13.5 g/dL (13.5-17.5); Immature Grans % 0.8; Lymphocytes % 13.5; MCH 33.7 pg (27.0-33.0); MCHC 33.9 % (32.0-36.0); MCV 99 fL (80-95); MPV 8.4 fL (8.0-11.0); Monocytes % 7.6; Neutrophils % 77.1; Platelet Count 278 10^3/uL (130-400); RBC 4.01 10^6/uL (4.36-5.78); RDW 13.3 % (11.8-14.1); RDW-SD 47.9 fL; WBC 9.49 10^3/uL (4.4-10.8)
[2023-01-16 15:09] LABS: ALT 25 U/L (16-63); AST 18 U/L (15-37); Albumin 3.9 g/dL (3.4-5.0); Alkaline Phosphatase 131 U/L (46-116); Anion Gap 9.7 mmol/L (3-11); BUN 20 mg/dL (7-18); Bilirubin, Total 0.5 mg/dL (0.2-1.0); C-Reactive Protein 1.22 mg/dL (0.0-0.3); CO2 26.3 mmol/L (21.0-32.0); Calcium 9.4 mg/dL (8.5-10.1); Chloride 101 mmol/L (98-107); Estimated GFR 86.16 (mL/min/1.73m2); Glucose 104 mg/dL (74-106); Potassium 4.4 mmol/L (3.5-5.1); Sodium 137 mmol/L (136-145); Total Protein 7.3 g/dL (6.4-8.2)
== END 2023-01-16 14:55 | disposition home or self-care (01) ==
LOC: LBO 14:55
PROVIDERS: PCP Nurse Practitioner Family; Visit Provider Internal Medicine Rheumatology
DX: M05.79 Rheumatoid arthritis with rheumatoid factor of multiple sites without organ or systems involvement (principal); Z79.899 Other long term (current) drug therapy
CPT/HCPCS: 36415; 80053; 85025; 86140

== ENCOUNTER 2023-01-30 14:21 | Outpatient (CLI) | payer MEDICAID, SELFPAY ==
--- NOTE | 2023-01-30 13:30 | DI.RAD_ITS ---
Exam(s) XR SHOULDER LT COMPLETE 2+V EXAM: XR SHOULDER LT COMPLETE 2+V CLINICAL HISTORY: Left shoulder pain. TECHNIQUE: 2D digital imaging was performed of the left shoulder. Two images were obtained. AP and axillary views were obtained. COMPARISON: No exams were available for comparison FINDINGS: BONES: No acute fracture is present. No bony destructive lesion is seen. JOINTS: No dislocation present. SOFT TISSUE: Normal. IMPRESSION: No acute abnormality. DATA REPOSITORY: RADIATION DOSE DELIVERED:
== END 2023-01-30 14:22 | disposition home or self-care (01) ==
LOC: DIORS 14:21
PROVIDERS: PCP Nurse Practitioner Family; Referring Provider Nurse Practitioner Family; Visit Provider Student in an Organized Health Care Education/Training Program
DX: M25.512 Pain in left shoulder (principal)
CPT/HCPCS: 73030

== ENCOUNTER 2023-02-11 08:44 | Day surgery (SDC) | payer MEDICAID, SELFPAY ==
--- NOTE | 2023-02-10 20:17 | W.PM.DSUDISC ---
Date of service: 02/11/23 Time of Service: 10:25 Discharge Plan Disposition Patient Disposition: Home Condition: Good Discharge Details Reason For Visit: Screening colonoscopy Attending Provider: Eugenio Serrato Primary Care Provider: Brandi Jacob Home Meds and New Rx's Prescriptions: Continued oxybutynin chloride 10 mg tablet extended release 24hr 10 mg PO DAILY Qty: 90 3RF folic acid 1 mg tablet 1 mg PO DAILY zolpidem 6.25 MG tablet,ext release multiphase 6.25 mg PO PRN triamcinolone acetonide 0.1 % cream 1 applic TP BID PRN omeprazole 10 mg capsule,delayed release(DR/EC) 40 mg PO DAILY lisinopril 30 mg tablet 30 mg PO DAILY valacyclovir 1 gram tablet 2,000 mg PO Q12H PRN methotrexate sodium 10 mg tablet 15 mg PO QWEEK aspirin 81 mg Tablet,Delayed Release (Dr/Ec) 81 mg PO DAILY One-A-Day Men's Multivitamin 400-20-300 mcg Tablet 1 tab PO DAILY acetaminophen 500 mg tablet 500 mg PO Q6H PRN (Reason: pain) Qty: 60 2RF ibuprofen 600 mg tablet 600 mg PO TID PRN (Reason: pain) Qty: 60 0RF hydroxychloroquine 200 mg tablet 200 mg PO BID Patient Comments: TK 1 T PO BID Discontinued polyethylene glycol 3350 17 gram/dose powder 238 g PO ONCE Qty: 238 0RF Rx Instructions: take per colonoscopy instructions bisacodyl [Dulcolax (bisacodyl)] 5 mg tablet,delayed release (DR/EC) 5 mg PO ONCE Qty: 4 0RF Rx Instructions: take per colonoscopy instructions Discharge Instructions Instructions: Diverticulosis (GEN), Diverticulosis Diet (GEN) Additional Instructions: All, we were able to complete your colonoscopy today without any difficulty. You do have fairly extensive sigmoid diverticulosis. I have attached some information here regarding diverticular disease. There was also a small abnormality right at your anus. Generally, it appears and feels consistent with a hemorrhoid. I would like to see you in the office on February 27 for follow-up exam to make sure it has resolved. Like we talked about before your colonoscopy, with a first-degree relative with colon cancer, you should plan on another colonoscopy in 5 years. 1. If tolerated, consume a soft, low fiber diet for 1-2 days. 2[address] Do not drive, drink alcohol, operate machinery, make critical decisions, or do activities that require coordination or balance for 24 hours. 3. Because air was put into your colon during the procedure, expelling air from your rectum (passing gas or farting) is normal. 4. You may not have a bowel movement for 1-3 days because of the colonoscopy prep. This is normal. 5. Go directly to the emergency room if you notice any of the following: Develop chills (warm to touch), or if you have a thermometer and your temperature is above 101 Difficulty breathing or difficultly swallowing Persistent vomiting Severe abdominal pain, other than gas cramps Severe chest pain Black, tarry stools Any bleeding ? exceeding one tablespoon 6. Call your physician if the site where your intravenous was started becomes red, swollen, painful, and warm to touch. 7. Your physician has reviewed your pre-procedure medications. Please continue to take those medications as previously ordered. You will be given specific information/education regarding any changes to your medications before leaving. Referrals: Eugenio Serrato MD [ [facility] STAFF PHYSICIAN] - (February 27 at 11:30 AM) Activity:: Activity as Tolerated Diet:: As Tolerated Discharge Orders Discharge Orders: Discharge Order (Routine); Ordered 02/10/23 Ordered By: Eugenio Serrato DS: Diagnosis Discharge Diagnosis (1) Screening for colon cancer: Status: Acute Asessment and Plan: Follow-up in my office on February 27 at 11:30 AM
--- NOTE | 2023-02-10 20:21 | COLE_ITS ---
Date of service: 02/11/23 Time of Service: 10:32 Colonoscopy Report Date of procedure: 02/11/23 Pre-op diagnosis general: Screening colonoscopy Post-op diagnosis procedure note: other (Anal mass, diverticulosis) Procedure: Colonoscopy Surgeon: Eugenio Serrato Anesthesia Type: General:No Airway Estimated blood loss (mL): 0 Pathology: none sent Complications: None Disposition: same day Indications: Eduardo is a 62 year old man. He is here for his second screening colonoscopy Prep: Miralax/Dulcolax Procedure Start Time: 10:05 Procedure End Time: 10:20 Retraction Time: 11 Findings: Anal mass on the right side, sigmoid diverticulosis Procedure Description: After the induction of monitored anesthetic care, and with the patient in left lateral decubitus position, I began by performing an external anorectal exam.? Perineum and skin were normal, as was the anal verge. Next, I performed a digital rectal exam.? There was a small lump on the right side. On closer examination, there was a 0.75 cm lump that was pale in color on the right side of the patient's anus. It appeared to me to be below the anal verge. There were some features that were consistent with a thrombosed hemorrhoid.? Next, I advanced a colonoscope into the rectal vault.? I performed retroflexion.? This appeared normal.? Using insufflation, I then advanced the colonoscope beyond the rectal folds and into the sigmoid colon before advancing towards the cecum.? There was extensive [place] colonic diverticula. These were extended from approximately 30 cm from the anal verge to approximately 50 cm. Beyond that, there were rare occasional diverticuli. The quality of the prep was excellent.? The scope was noted to be in the cecum by identification of the ileocecal valve and appendiceal orifice.? I then began withdrawing the colonoscope using repe ated irrigation as necessary for full evaluation of the colonic mucosa. ?Once the scope was withdrawn to the level of the rectum, great care was taken to examine portions of the rectal folds.? Finally, the scope was withdrawn and the patient was brought to the same-day surgery recovery unit as the anesthetic wore off. ?The findings and instructions were shared with the patient prior to discharge.
[2023-02-11 08:54] VITALS: BP 142/96; PULSE 77; RESP 17; TEMP 36.9; O2SAT 97
--- NOTE | 2023-02-11 09:29 | ANES.PREOP_ITS ---
General Info Date of Service Date Performed: 02/11/23 Height: 5 ft 7 in Weight: 96 kg Body Mass Index (BMI): 33.1 Surgical Procedure: Operation Date: 02/11/23 09:35 Proposed Procedure Side Surgeon all Serrato MD Meds Allergies and Home Medications Allergies Allergy/AdvReac Type Severity Reaction Status Date / Time No Known Allergies Allergy Verified 02/11/23 09:12 Home Medication Medication Instructions Recorded zolpidem 6.25 mg tablet,extended 6.25 mg PO PRN 12/07/15 release,multiphase omeprazole 10 mg capsule,delayed 40 mg PO DAILY 12/17/19 release triamcinolone acetonide 0.1 % 1 applic topical BID PRN 12/17/19 topical cream lisinopril 30 mg tablet 30 mg PO DAILY 07/01/20 folic acid 1 mg tablet 1 mg PO DAILY 07/12/20 hydroxychloroquine 200 mg tablet 200 mg PO BID 09/26/20 valacyclovir 1 gram tablet 2,000 mg PO Q12H PRN 02/22/21 aspirin 81 mg tablet,delayed 81 mg PO DAILY 08/21/22 release fuaplpyn-irgaqktl-ruujf acid 400 1 tab PO DAILY 08/21/22 mcg-vit K 20 mcg-lycop 300 mcg tablet (One-A-Day Men's Multivitamin) acetaminophen 500 mg tablet 500 mg PO Q6H PRN pain #60 tabs 08/22/22 ibuprofen 600 mg tablet 600 mg PO TID PRN pain #60 tabs 08/22/22 oxybutynin chloride 10 mg 10 mg PO DAILY urinary frequency 01/23/23 tablet,extended release 24 hr #90 tabs methotrexate sodium 10 mg tablet 15 mg PO QWEEK 01/31/23 Current Visit Medications: Current Medications Generic Name Dose Route Start Last Admin Trade Name Freq PRN Reason Stop Dose Admin Hyoscyamine Sulfate 0.125 mg 02/10/23 20:22 Hyoscyamine 0.125 Mg Sl/Oral/Chew SL DIRECTED PRN Ringer's Solution 1,000 mls @ 80 mls/hr 02/11/23 06:00 IV 02/11/23 23:59 INFUSION HORTENCIA IV Miscellaneous Supplies 1 each 02/11/23 06:00 Iv Access IV 02/11/23 23:59 DIRECTED HORTENCIA Sodium Chloride 0 ml 02/11/23 06:00 Normal Saline Flush 10 Ml Syr IV 02/11/23 23:59 PRN PRN Sodium Chloride 0 ml 02/11/23 06:00 Normal Saline 10 Ml Vial IJ 02/11/23 23:59 DIRECTED PRN Sterile Water 0 ml 02/11/23 06:00 Water,Injection,Sterile 10 Ml Vial IJ 02/11/23 23:59 DIRECTED PRN PFSH Active Problems Active Problems: Problem Status Onset Code Traumatic tear of left rotator cuff 01/09/23 S46.012A Urinary frequency R35.0 Arthritis of carpometacarpal (CMC) joint of left thumb M18.12 HTN (hypertension) I10 Right wrist sprain S63.501A Transient visual loss H53.[address] scan of head R93.0 Tachycardia R00.0 Osteoarthritis of right hip M16.11 Right rotator cuff tear arthropathy M75.101, M12.811 Complete tear of right rotator cuff M75.121 Hernia, inguinal K40.90 Traumatic tear of right rotator cuff S46.011A Tendonitis of long head of biceps brachii of right shoulder M75.21 Bursitis of right shoulder M75.51 S/P right rotator cuff repair Z98.890 Hx of urinary frequency Z87.898 Pes anserine bursitis M70.50 Chest pain R07.9 Hemarthrosis involving knee joint M25.069 Arthritis of left wrist M19.032 Effusion, right knee M25.461 Screening for colon cancer Z12.11 Family history of colon cancer Z80.0 Diastasis recti M62.08 Medical History Medical History Benign prostatic hypertrophy without urinary obstruction Blind left eye BPH (benign prostatic hyperplasia) Cataract, congenital Congenital cataract of left eye COVID 07/05 Dental infection Diverticulosis Diverticulosis GERD (gastroesophageal reflux disease) H/O sudden visual loss Hernia, umbilical repaired 12/26/18, Dr Cheryl Mcdaniel, [facility] Herpes labialis cold sores Hip pain, right History of trigger finger repaired Hx of rheumatoid arthritis pt. 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 reports when 15 years old foot was put back on above the ankle Arthritis of carpometacarpal (CMC) joint of right thumb S/P medial arthroplasty: 08/22/2022 Arthroplasty of knee Right knee was not a knee replacement History of surgery on arm L, bone lengthened History of surgery on left wrist History of total bilateral knee replacement (TKR) (03/08/21) History of total right hip replacement (10/19/20) History of umbilical hernia repair Hx of knee surgery Painful total knee replacement, left S/P L knee arthroscopy with synovectomy: 08/22/2022 Rotator Cuff Repair Left S/P arthroscopy of right shoulder (11/25/20) SCR reconstruction, RTC repair, biceps tenodesis by Dr. Jose S/P inguinal hernia repair using synthetic patch (~09/28/20) Status post hip replacement right Tobacco Smoking/Tobacco Use Status: Former Tobacco Use Alcohol Alcohol Intake: former Substance Use Substance use: Never Substance use type: does not use Details: no alcohol or tobacco for 20 years Vital Signs and Lab Results Vital Signs Most Recent Vital Signs in EMR: Most Recent Vital Signs Temp Pulse Resp BP Pulse Ox 36.9 C 77 17 142/96 H 97 02/11/23 08:54 02/11/23 08:54 02/11/23 08:54 02/11/23 08:54 02/11/23 08:54 Lab Results Blood Type / Crossmatch: No Data to Display Complete Blood Count: White Blood Count 9.49 10^3/uL (4.4-10.8) 01/16/23 14:25 Red Blood Count 4.01 10^6/uL (4.36-5.78) L 01/16/23 14:25 Hemoglobin 13.5 g/dL (13.5-17.5) 01/16/23 14:25 Hematocrit 39.8 % (40.0-50.0) L 01/16/23 14:25 Platelet Count 278 10^3/uL (130-400) 01/16/23 14:25 Complete Metabolic Panel: Sodium 137 mmol/L (136-145) 01/16/23 14:25 Potassium 4.4 mmol/L (3.5-5.1) 01/16/23 14:25 Chloride 101 mmol/L (98-107) 01/16/23 14:25 Carbon Dioxide 26.3 mmol/L (21.0-32.0) 01/16/23 14:25 BUN 20 mg/dL (7-18) H 01/16/23 14:25 Creatinine 1.0 mg/dL (0.70-1.30) 01/16/23 14:25 Est GFR (CKD-EPI 2020) 86.16 (mL/min/1.73m2) 01/16/23 14:25 Calcium 9.4 mg/dL (8.5-10.1) 01/16/23 14:25 Albumin 3.9 g/dL (3.4-5.0) 01/16/23 14:25 Glucose 104 mg/dL (74-106) 01/16/23 14:25 C-Reactive Protein 1.22 mg/dL (0.0-0.3) H 01/16/23 14:25 Liver Function Panel: Alanine Aminotransferase (ALT/SGPT) 25 U/L (16-63) 01/16/23 14: 25 Aspartate Amino Transf (AST/SGOT) 18 U/L (15-37) 01/16/23 14:25 Coagulation Panel: No Data to Display Cardiac Panel: No Data to Display Arterial Blood Gas: No Data to Display Venous Blood Gas: No Data to Display Pancreas Panel: No Data to Display Thyroid Panel: No Data to Display Infectious Disease: No Data to Display Blood Cultures: No Data to Display Toxicology Panel: No Data to Display Imaging and Studies Imaging and Studies Study information below may be from another EMR and interpreted by another provider. Please see original notes in EMR for more complete details. EKG Summary: 08/03: Conclusion Sinus rhythm...normal P axis, V-rate 60- 99 Normal Electrocardiogram Echocardiogram Summary: 05/03/2020 Conclusion Left Ventricle : The left ventricle is normal size. The left ventricular systolic function is normal. The left ventricular ejection fraction is within the normal range. There is normal left ventricular wall thickness. There is normal LV segmental wall motion. The left ventricular diastolic function is normal. LVEF is 55-60%. Right Ventricle : The right ventricle is normal size. The right ventricular systolic function is normal. The RVSP is 23 mmHg. Atria : The left atrium size is normal. The right atrium size is normal. The interatrial septum is intact with no evidence for an atrial septal defect (this was not a bubble study). Valves: There are no hemodynamically significant valvular lesions. Great Vessels : The ascending aorta is normal in size. Aortic arch is normal in caliber. IVC is normal in size and collapses >50% with inspiration. There is no prior study available for comparison. Carotid Artery Summary:: 01/15/2020 RIGHT CAROTID ARTERY: Plaque: Minimal. Velocity elevation: None. LEFT CAROTID ARTERY: Plaque: Mild calcific plaque at the left common carotid bulb and proximal left internal carotid artery. The left mid internal carotid artery is mildly tortuous. Velocity elevation: None. VERTEBRAL ARTERIES: Antegrade flow. Anesthesia Assessment and Plan Anesthesia History Personal History: No History of Anesthesia Complications Family History: No Family History of Anesthesia Complications Exercise Tolerance Exercise Tolerance: Metabolic Equivalents>4 Pertinent Negatives Pertinent Negatives: No Symptoms of GERD and No Major Pulmonary Symptoms or Complaints Cardiac & Pulmonary Exam Cardiac Exam: Normal S1/S2 Heart Sounds Pulmonary Exam: Clear Bilateral Breath Sounds Implantable Cardiac Device Does patient have a Pacemaker or an ICD?: No Airway Exam Known Difficult Airway: No Mallampati Class: 2 Mouth Opening: Normal (> 3cm) Thyromental Distance: Greater than 3 cm Neck Range of Motion: Full ROM Neck Circumference: Normal Teeth Condition: Normal Dentition and Removable Dentures/Plates Upper ASA Classification ASA Score: ASA 3 Emergency Case?: No NPO Status NPO Status: NPO Clears >2 hours, Solids >8 hours Anesthesia Plan Resuscitation Status: Full Code Anesthesia Technique: General Anesthesia Airway Planned: Natural Airway Monitors Used: Standard Monitors
[2023-02-11] MEDS: Lactated Ringers 1,000 ML 80 ML IV (09:31)
[2023-02-11 09:32] VITALS: BMI 33.1
[2023-02-11 10:25] VITALS: BP 136/91; PULSE 90; RESP 16; TEMP 36.4; O2SAT 96
[2023-02-11 10:49] VITALS: BP 144/101; PULSE 88; RESP 18; TEMP 36.4; O2SAT 97
--- NOTE | 2023-02-11 11:24 | W.ANESPOSTOP ---
Postoperative Evaluation Date, Time and Location Date Performed: 02/11/23 Time Performed: 11:25 Patient Location: Day Surgery Unit Vital Signs Most Recent Imported Vital Signs: Most Recent Vital Signs Temp Pulse Resp BP Pulse Ox 36.4 C L 88 18 144/101 H 97 02/11/23 10:49 02/11/23 10:49 02/11/23 10:49 02/11/23 10:49 02/11/23 10:49 Pain Score Most Recent Pain Score: Most Recent Pain Score Pain Level 0 02/11/23 10:49 Assessment Mental Status: Awake (Alert & Oriented to Patient Baseline) Airway and Respiratory Function: Patent airway with normal (patient baseline) respiratory exam Cardiovascular Function: Hemodynamically Stable Hydration Status: Adequately Hydrated Nausea & Vomiting: No Nausea or Vomiting Pain: Pt. Denies Any Pain Peripheral Nerve Block: Patient did not receive a nerve block Postoperative Comments:: Seen earlier denied questions or complaint. Was good to be discharged
== END 2023-02-11 11:09 | disposition home or self-care (01) ==
PROVIDERS: PCP Nurse Practitioner Family; Visit Provider Surgery
PROC: 0DJD8ZZ Inspection of Lower Intestinal Tract, Via Natural or Artificial Opening Endoscopic (ICD-10-PCS; CPT 45378; principal; 2023-02-11 09:30)
DX: Z12.11 Encounter for screening for malignant neoplasm of colon (principal); K62.89 Other specified diseases of anus and rectum; K57.30 Diverticulosis of large intestine without perforation or abscess without bleeding
CPT/HCPCS: 45378

== ENCOUNTER 2023-02-19 01:23 | Outpatient (CLI) | payer MEDICAID, SELFPAY ==
--- NOTE | 2023-02-19 07:00 | DI.MRI_ITS ---
Exam(s) MR UPPER JOINT LT WO EXAM: MR UPPER JOINT LT WO CLINICAL HISTORY: SLIP AND FALL,traumatic tear lt rotator cuff,s46.012a TECHNIQUE: Multiplanar multisequence MRI of the shoulder was performed. COMPARISON: MR MR UPPER JOINT RT WO from 09/26/2020 CR XR SHOULDER LT COMPLETE 2+V from 01/30/2023 FINDINGS: MARROW:There is no evidence of fracture, Hill-Sachs deformity, nor ominous osseous lesions. ROTATOR CUFF MECHANISM: AC JOINT/ACROMIUM: There is evidence of prior decompression surgery at the level the AC joint. Dista nce between the lateral aspect of the clavicle and acromion is 1.4 cm and there is postsurgical susce ptibility artifact in the subcutaneous tissues over this area. There is no evidence of os acromiale. Supraspinatus: There is full-thickness tear of the rotator cuff supraspinatus tendon. There is retra ction of the musculotendinous junction to the mid humeral head level. No prominent atrophy.. Infraspinatus: Tendinosis signal. Mild partial thickness articular side tearing. There does not rukhsana ear to be full-thickness tearing of the infraspinatus. Teres Minor: Intact. No evidence of tear nor muscle atrophy. Subscapularis/anterior cuff: Intact. No abnormal signal at the level of the multipennate insertional fibers. No significant tear nor atrophy. BICEPS TENDON: Normally position in the intertubercular groove. No evidence of tear. LABRUM: There is no significant signal abnormality in the superior labrum posterior to the biceps ins ertion. Posterior labrum is intact. Anterior labrum appears intact. Inferior labrum intact. GLENOHUMERAL JOINT: No joint effusion nor obvious loose intra-articular bodies. No chondral defects. No osteophytes. No degenerative subarticular cysts. There is an element of superior subluxation of the humeral head in the osseous glenoid. QUADRILATERAL SPACE: No evidence of mass in the region of the axillary nerve and dorsal circumflex hu meral vessels. Visualized triceps muscle at this level appears unremarkable. IMPRESSION: 1. There is evidence of previous AC joint level decompression surgery. 2. There is full-thickness tear of the supraspinatus-rotator cuff tendon with retraction of the muscu lotendinous junction to the mid humeral head level. 3. Infraspinatus tendinosis tendinitis signal with mild articular surface partial tearing. 4. Anterior cuff-subscapularis appears intact. 5. No evidence of biceps tendon tear nor obvious labral tears. No evidence of paralabral cyst. 6. Mild degenerative changes in the glenohumeral joint. No osteophytes. There is an element of upw stone subluxation of the humeral head related to the rotator cuff pathology. DATA REPOSITORY:
== END 2023-02-19 01:43 ==
PROVIDERS: PCP Nurse Practitioner Family; Visit Provider Student in an Organized Health Care Education/Training Program
DX: S46.012A Strain of muscle(s) and tendon(s) of the rotator cuff of left shoulder, initial encounter (principal)
CPT/HCPCS: 73221

== ENCOUNTER 2023-04-05 09:30 | Day surgery (SDC) | payer MEDICAID, SELFPAY ==
[2023-04-05] VITALS (12 sets, daily range): BP systolic 104–129; BP diastolic 69–98; PULSE 52–82; RESP 12–20; TEMP 36.2–37; O2SAT 97–100; BMI 31.8
--- NOTE | 2023-04-05 06:57 | W.PM.DSUDISC ---
Date of service: 04/05/23 Time of Service: 15:00 Discharge Plan Disposition Patient Disposition: Home Condition: Stable Discharge Details Attending Provider: Brigido Jose Primary Care Provider: Brandi Jacob Home Meds and New Rx's Prescriptions: New naproxen 250 mg tablet 250 - 500 mg PO BID PRNQty: 40 0RF Rx Instructions: take with a meal oxycodone 5 mg tablet 5 - 15 mg PO Q4H MDD 30 mg PRN (Reason: moderate to severe pain) Qty: 36 0RF Continued oxybutynin chloride 10 mg tablet extended release 24hr 10 mg PO DAILY Qty: 90 3RF folic acid 1 mg tablet 1 mg PO DAILY zolpidem 6.25 MG tablet,ext release multiphase 6.25 mg PO PRN triamcinolone acetonide 0.1 % cream 1 applic TP BID PRN omeprazole 10 mg capsule,delayed release(DR/EC) 40 mg PO DAILY lisinopril 30 mg tablet 30 mg PO DAILY valacyclovir 1 gram tablet 2,000 mg PO Q12H PRN methotrexate sodium 10 mg tablet 15 mg PO QWEEK aspirin 81 mg Tablet,Delayed Release (Dr/Ec) 81 mg PO DAILY One-A-Day Men's Multivitamin 400-20-300 mcg Tablet 1 tab PO DAILY acetaminophen 500 mg tablet 500 mg PO Q6H PRN (Reason: pain) Qty: 60 2RF hydroxychloroquine 200 mg tablet 200 mg PO BID Patient Comments: TK 1 T PO BID Discontinued ibuprofen 600 mg tablet 600 mg PO TID PRN (Reason: pain) Qty: 60 0RF Discharge Instructions Additional Instructions: Surgery: Left shoulder arthroscopy with rotator cuff repair (supraspinatus and infraspinatus), biceps tenodesis, extensive debridement, and subacromial decompression. Activity: For 6 weeks, you should keep your arm at your side in a neutral position at all times except for physical therapy. Do not try to lift or raise your arm using your own muscles. You should use the sling whenever you are out of the house. You may have to adjust the abduction pillow or remove it for comfort. At home it is best to remove the sling and rest the arm on a pillow at your side or support the operative side with your other hand. You may allow the arm to dangle at your side. A physical therapy prescription will be sent electronically to begin in about 3 weeks. CONSERVATIVE protocol. Prescriptions: Resume daily aspirin tomorrow afternoon Naproxen 250 mg take 1-2 every 12 hours with a meal as needed for moderate pain (not use at same time as ibuprofen) Oxycodone 5 mg take 1-3 every 4-6 hours as needed for severe pain You may use ojkf-bpt-kakyure Tylenol (acetaminophen) as needed for mild pain. These pain medications may be taken all at once or in different combinations as needed. Also, recommend Colace (docusate) as a stool softener as surgery and pain medicine cause constipation. You may try [id number]-uapoiep diphenhydramine (Benadryl) 25-50 mg nightly as a sleep aid Dressings: Remove shoulder bandage after 3 days. Leave the sticky Steri-Strips in place until they fall off or remove them after you shower. Cover the incisions with Band-Aids or leave them open to air. You may shower after 5 days. Follow-up: 10-[address] Jose You may take off the leg compression stockings this evening at home. You may also leave them on a few days longer if you have a history of leg swelling or edema. Let us know right away if you develop any redness, drainage, fevers, chest pain, or trouble breathing. Do not drink alcohol or drive for at least 24 hours after anesthesia. Please call the office during business hours with any questions or concerns. Discharge Orders Discharge Orders: Discharge Order (Routine); Ordered 04/05/23 Ordered By: Brigido Jose DS: Diagnosis Discharge Diagnosis (1) Traumatic tear of left rotator cuff: Status: Acute
--- NOTE | 2023-04-05 06:58 | W.PM.OP ---
Date of service: 04/05/23 Time of Service: 11:00 Operative Note Operative Note DATE OF PROCEDURE: 04/05/23 PRE-OP DIAGNOSIS: Left: 1. Rotator cuff tear 2. LHB tendinopathy 3. Bursitis POST-OP DIAGNOSIS: same PROCEDURE: Left: 1. Rotator cuff repair, CPT# 20049. This involved repair of the supraspinatus and infraspinatus using anchors and sutures to reattach the rotator cuff back to the footprint of the greater tuberosity. 2. Arthroscopic biceps tenodesis, CPT# 22543. This involved arthroscopically suturing and reattaching the long head of the biceps tendon to the proximal humerus at the superior margin of the bicipital groove with a screw at the correct tension. 3. Extensive debridement, CPT# 67259. This involved using arthroscopic hand instruments, power instruments, and radiofrequency instruments to release the long head of the biceps tendon and debride areas of anterior labral tearing, release MGHL, resect synovitis anteriorly superiorly and posterior, and debride fibrinous bone changes about the lessor and greater tuberosities as well as partial subscapularis upper lateral margin tearing. 4. Subacromial decompression with partial acromioplasty, CPT# 17505. This involved using arthroscopic power instruments and a radiofrequency wand to complete a bursectomy and smooth the undersurface of the acromion. The design assistant was medically required in order to help assist in techniques above, which require positioning the arm, holding the arthroscope, and manipulating multiple instruments and sutures at the same time. This cannot be done without the help of an experienced design assistant. SURGEON: Brigido Jose ASSOCIATE DENTIST: Marcie Orellana ANESTHESIA TYPE: General LMA/ETT and Primary Nerve Block Refer to Anesthesia Record ESTIMATED BLOOD LOSS: 10 PATHOLOGY: none sent COMPLICATIONS: None Patient was transported to: PACU Patient's condition: stable Implants: Arthrex: 4.75mm SwiveLocks x 2 and 5.5mm SwiveLocks x 2 Indications: The patient was diagnosed with the above conditions and appropriately indicated for surgical intervention. Please see complete medical record for details. Findings: Exam under anesthesia: Full range of motion, no instability Glenohumeral joint: Profound synovitis globally. Significant anterior labral tearing fraying into an inflamed biceps tendon anchor degenerative SLAP tear. Upper lateral margin subscapularis partial tearing. Chronic fibrinous changes about the exposed lesser and greater tuberosities. Significant undersurface supraspinatus infraspinatus and capsular rotator cuff abnormality. Subacromial space: Significant bursitis. Minimal undersurface acromial bone spurring. Significant greater tuberosity bony prominence. Essentially complete, delaminated, and appearing acute on chronic supraspinatus and infraspinatus rotator cuff tears with moderate retraction. Significantly poor bone and tendon quality. Procedure Description: In the operating room, general anesthesia was induced. Bilateral shoulders were examined. The patient was positioned in the beachchair position. All bony prominences were well-padded. Preoperative antibiotics were administered. The shoulder was prepped and draped in the usual sterile fashion. The correct patient, procedure, and side of the procedure were all verified prior to incision. Starting through the posterior portal a standard complete diagnostic arthroscopy was performed of the glenohumeral joint including inspection of the long head of the biceps, anterior and superior labrum, subscapularis tendon, supraspinatus and infraspinatus tendons, and axillary recess. The glenoid and humeral head cartilage as well as the posterior labrum were inspected from an anterior viewing portal. Significant findings and interventions noted above. A superior anterolateral portal was established working through the full-thickness rotator cuff tear. An all-arthroscopic suprapectoral biceps tenodesis was performed through an anterior portal using a Loop N Tack method with a SutureTape FiberLink cinched around and through the tendon. The biceps was tenotomized from the labrum and repair suture protected for later repair at the superior aspect of the bicipital groove with the rotator cuff repair The arthroscope was brought into the superior lateral portal and the posterior superior lateral portal established. The subacromial space was decompressed of significant bursitis and the undersurface of the acromion was smoothed with to prevent pain and allow proper healing of the rotator cuff repair. The coracoacromial ligament was preserved. A lateral 50 yard line portal was established in line with the rotator cuff tear. Mary cannula inserted here. Passport were inserted at the other superior lateral portals. Various hand tools rotator cuff graspers, elevators, rasps were used to appropriately mobilize, debride, and identify the various levels of this highly abnormal large rotator cuff tear. As best possible normal tissue contours were established although they were significantly degenerated layers and the capsular tissue was quite poor. The greater tuberosity was thoroughly debrided of fibrinous material to an appropriate cancellous bony bed taking care to preserve bone for later fixation given the soft bone present. The prominent gaiters greater tuberosity was reduced to prevent subacromial impingement. The rotator cuff was successfully mobilized across the majority of the greater tuberosity. There was excellent bony bed preparation from the articular margin laterally. The tear started at the bicipital groove and ended about midway through the infraspinatus posteriorly. Medial row anchors were inserted 4.75 mm swivel locks preloaded with fiber tape sutures for later speed bridge repair. The anterior medial row anchor had the biceps tenodesis repair suture included completing that repair. The fiber tapes were then sequentially shuttled through the appropriate medial margin of the supraspinatus and infraspinatus using a FiberLink and the scorpion. A single anterior and posterior FiberTape was brought out the lateral cannula in the exposure and arm position made appropriate for lateral row fixation. An additional FiberLink in cinch mode was placed anteriorly and posteriorly to the anterior anchor incorporating additional rotator cuff tissue and circumferentially repairing the various delaminated layers. Bone was even softer laterally so a 5.5 mm anchor was loaded with the repair sutures and successfully deployed with actually quite good fixation strength. Similarly the fiber tapes from each medial anchor were retrieved out an additional FiberLink cinch mode was placed on either side of the posterior anchor and secured to a 5.5 mm final lateral anchor. The repair had good tissue coverage especially considering the abnormal tissue quality present in the debridement done. There was excellent fixation spanning far anteriorly centrally and posteriorly. The repair was stable through range of motion and testing The shoulder was drained of arthroscopic fluid. All portal sites were copiously irrigated. These incisions were closed using 3-0 Monocryl in a buried fashion and then covered with Mastisol, Steri-Strips, Xeroform, dry gauze, and ABDs. The dressings were covered and secured with Medipore tape. The operative extremity was placed into a sling for immobilization. The patient awoke from anesthesia without complication and was transferred to the recovery room in a stable condition.
[2023-04-05] MEDS: Lactated Ringers 1,000 ML 30 ML IV (10:28)
--- NOTE | 2023-04-05 10:48 | W.ANESPRE ---
General Info Date of Service Date Performed: 04/05/23 Height: 5 ft 7 in Weight: 92.4 kg Body Mass Index (BMI): 31.8 Surgical Procedure: Operation Date: 04/05/23 11:25 Proposed Procedure Side Surgeon p Shoulder Rotator Cuff Arthroscopic w/Extensive Debridement, Possible Biceps Tenodesis, Subacromial Decompression Left Brigido Jose MD Meds Allergies and Home Medications Allergies Allergy/AdvReac Type Severity Reaction Status Date / Time No Known Allergies Allergy Verified 04/05/23 09:39 Home Medication Medication Instructions Recorded zolpidem 6.25 mg tablet,extended 6.25 mg PO PRN 12/07/15 release,multiphase omeprazole 10 mg capsule,delayed 40 mg PO DAILY 12/17/19 release triamcinolone acetonide 0.1 % 1 applic topical BID PRN 12/17/19 topical cream lisinopril 30 mg tablet 30 mg PO DAILY 07/01/20 folic acid 1 mg tablet 1 mg PO DAILY 07/12/20 hydroxychloroquine 200 mg tablet 200 mg PO BID 09/26/20 valacyclovir 1 gram tablet 2,000 mg PO Q12H PRN 02/22/21 aspirin 81 mg tablet,delayed 81 mg PO DAILY 08/21/22 release jwqlmxab-pfabtrwg-xxalx acid 400 1 tab PO DAILY 08/21/22 mcg-vit K 20 mcg-lycop 300 mcg tablet (One-A-Day Men's Multivitamin) acetaminophen 500 mg tablet 500 mg PO Q6H PRN pain #60 tabs 08/22/22 ibuprofen 600 mg tablet 600 mg PO TID PRN pain #60 tabs 08/22/22 oxybutynin chloride 10 mg 10 mg PO DAILY urinary frequency 01/23/23 tablet,extended release 24 hr #90 tabs methotrexate sodium 10 mg tablet 15 mg PO QWEEK 01/31/23 Current Visit Medications: Current Medications Generic Name Dose Route Start Last Admin Trade Name Freq PRN Reason Stop Dose Admin Ringer's Solution 1,000 mls @ 30 mls/hr 04/05/23 06:00 04/05/23 10:28 IV 04/05/23 16:00 30 mls/hr INFUSION HORTENCIA Administration Cefazolin Sodium/Dextrose 2 gm in 50 mls @ 100 mls/hr 04/05/23 06:00 Ancef Duplex IVPB 04/05/23 23:59 PREOP HORTENCIA IV Miscellaneous Supplies 1 each 04/05/23 06:00 Iv Access IV 04/05/23 23:59 DIRECTED HORTENCIA Oxycodone HCl 0 mg 04/05/23 06:57 Oxycodone 5 Mg Tab PO 05/05/23 06:56 Q3H PRN PRN Pain Sodium Chloride 0 ml 04/05/23 06:00 Normal Saline Flush 10 Ml Syr IV 04/05/23 23:59 PRN PRN Sodium Chloride 0 ml 04/05/23 06:00 Normal Saline 10 Ml Vial IJ 04/05/23 23:59 DIRECTED PRN Sterile Water 0 ml 04/05/23 06:00 Water,Injection,Sterile 10 Ml Vial IJ 04/05/23 23:59 DIRECTED PRN PFSH Active Problems Active Problems: Problem Status Onset Code Hemorrhoid K64.9 Traumatic tear of left rotator cuff 01/09/23 S46.012A Urinary frequency R35.0 Arthritis of carpometacarpal (CMC) joint of left thumb M18.12 HTN (hypertension) I10 Right wrist sprain S63.501A Transient visual loss H53.[address] scan of head R93.0 Tachycardia R00.0 Osteoarthritis of right hip M16.11 Right rotator cuff tear arthropathy M75.101, M12.811 Complete tear of right rotator cuff M75.121 Hernia, inguinal K40.90 Traumatic tear of right rotator cuff S46.011A Tendonitis of long head of biceps brachii of right shoulder M75.21 Bursitis of right shoulder M75.51 S/P right rotator cuff repair Z98.890 Hx of urinary frequency Z87.898 Pes anserine bursitis M70.50 Chest pain R07.9 Hemarthrosis involving knee joint M25.069 Arthritis of left wrist M19.032 Effusion, right knee M25.461 Screening for colon cancer Z12.11 Family history of colon cancer Z80.0 Diastasis recti M62.08 Medical History Medical History Benign prostatic hypertrophy without urinary obstruction Blind left eye BPH (benign prostatic hyperplasia) Cataract, congenital Congenital cataract of left eye COVID 07/05 Dental infection Diverticulosis Diverticulosis GERD (gastroesophageal reflux disease) H/O sudden visual loss Hernia, umbilical repaired 12/26/18, Dr Cheryl Mcdaniel, [facility] Herpes labialis cold sores Hip pain, right History of trigger finger repaired Hx of rheumatoid arthritis pt. 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 reports when 15 years old foot was put back on above the ankle Arthritis of carpometacarpal (CMC) joint of right thumb S/P medial arthroplasty: 08/22/2022 Arthroplasty of knee Right knee was not a knee replacement History of surgery on arm L, bone lengthened History of surgery on left wrist History of total bilateral knee replacement (TKR) (03/08/21) History of total right hip replacement (10/19/20) History of umbilical hernia repair Hx of knee surgery Painful total knee replacement, left S/P L knee arthroscopy with synovectomy: 08/22/2022 Rotator Cuff Repair Left S/P arthroscopy of right shoulder (11/25/20) SCR reconstruction, RTC repair, biceps tenodesis by Dr. Jose S/P inguinal hernia repair using synthetic patch (~09/28/20) Status post hip replacement right Tobacco Smoking/Tobacco Use Status: Former Tobacco Use Alcohol Alcohol Intake: former Substance Use Substance use: Never Substance use type: does not use Details: no alcohol or tobacco for 20 years Vital Signs and Lab Results Vital Signs Most Recent Vital Signs in EMR: Most Recent Vital Signs Temp Pulse Resp BP Pulse Ox 36.5 C 82 16 114/81 97 04/05/23 09:44 04/05/23 09:44 04/05/23 09:44 04/05/23 09:44 04/05/23 09:44 Lab Results Blood Type / Crossmatch: No Data to Display Complete Blood Count: No Data to Display Complete Metabolic Panel: No Data to Display Liver Function Panel: No Data to Display Coagulation Panel: No Data to Display Cardiac Panel: No Data to Display Arterial Blood Gas: No Data to Display Venous Blood Gas: No Data to Display Pancreas Panel: No Data to Display Thyroid Panel: No Data to Display Infectious Disease: No Data to Display Blood Cultures: No Data to Display Toxicology Panel: No Data to Display Imaging and Studies Imaging and Studies Study information below may be from another EMR and interpreted by another provider. Please see original notes in EMR for more complete details. EKG Summary: 08/03: Conclusion Sinus rhythm...normal P axis, V-rate 60- 99 Normal Electrocardiogram Echocardiogram Summary: 05/03/2020 Conclusion Left Ventricle : The left ventricle is normal size. The left ventricular systolic function is normal. The left ventricular ejection fraction is within the normal range. There is normal left ventricular wall thickness. There is normal LV segmental wall motion. The left ventricular diastolic function is normal. LVEF is 55-60%. Right Ventricle : The right ventricle is normal size. The right ventricular systolic function is normal. The RVSP is 23 mmHg. Atria : The left atrium size is normal. The right atrium size is normal. The interatrial septum is intact with no evidence for an atrial septal defect (this was not a bubble study). Valves: There are no hemodynamically significant valvular lesions. Great Vessels : The ascending aorta is normal in size. Aortic arch is normal in caliber. IVC is normal in size and collapses >50% with inspiration. There is no prior study available for comparison. Carotid Artery Summary:: 01/15/2020 RIGHT CAROTID ARTERY: Plaque: Minimal. Velocity elevation: None. LEFT CAROTID ARTERY: Plaque: Mild calcific plaque at the left common carotid bulb and proximal left internal carotid artery. The left mid internal carotid artery is mildly tortuous. Velocity elevation: None. VERTEBRAL ARTERIES: Antegrade flow. Anesthesia Assessment and Plan Anesthesia History Personal History: No History of Anesthesia Complications Family History: No Family History of Anesthesia Complications Exercise Tolerance Exercise Tolerance: Metabolic Equivalents>4 Pertinent Negatives Pertinent Negatives: No Symptoms of GERD, No Major Cardiovascular Symptoms or Complaints and No Major Pulmonary Symptoms or Complaints Cardiac & Pulmonary Exam Cardiac Exam: Normal S1/S2 Heart Sounds Pulmonary Exam: Clear Bilateral Breath Sounds Implantable Cardiac Device Does patient have a Pacemaker or an ICD?: No Airway Exam Known Difficult Airway: No Mallampati Class: 2 Mouth Opening: Normal (> 3cm) Thyromental Distance: Greater than 3 cm Neck Range of Motion: Full ROM Neck Circumference: Normal Teeth Condition: Normal Dentition and Removable Dentures/Plates Upper ASA Classification ASA Score: ASA 3 Emergency Case?: No NPO Status NPO Status: NPO Clears >2 hours, Solids >8 hours Anesthesia Plan Resuscitation Status: Full Code Anesthesia Technique: General Anesthesia Airway Planned: Endotracheal Tube Pain Management: Surgeon and patient request nerve block Monitors Used: Standard Monitors
[2023-04-05] MEDS: ceFAZolin 2 GM/50 ML BAG IVPB (11:18)
--- NOTE | 2023-04-05 12:12 | W.ANESNERVE ---
Nerve Block Single Injection Procedure Date and Time Date Performed: 04/05/23 Procedure Start: 11:05 Location Where Procedure Performed Procedure Location: Day Surgery Unit Reason Performed: Postoperative Analgesia Requesting Provider: Brigido Jose Timeout Performed Timeout Performed: Yes Monitoring Used ECG, Blood Pressure, SpO2 and See EMR for corresponding vital signs Sterility Sterility: Hand Hygiene, Surgical Cap, Surgical Mask, Sterile Gloves and Chlorhexidine Sedation Given During Procedure Sedation Given (Indicate Dose Given): Versed IV Dose:: 2mg Patient Mental Status Patient Mental Status: Sedate with meaningful communication Nerve Block 1st Nerve Block: Laterality: Left Block Type: Interscalene Ultrasound Image Saved?: Yes Needle / Catheter Used: 100mm SonoPlex II Local Anesthetic Bolus (Indicate Dose Given): Lidocaine used for local infiltration of skin, Injected in 3-5ml increments after negative blood aspiration, Bupivacaine 0.5% Dose:: 10ml and Exparel Dose:: 10ml Additives (Indicate Dose Given): None Ultrasound: Sterile probe cover and gel used Nerve Stimulator: Supplement to Ultrasound use and No twitch or parasthesia noted < 0.5 mA Paresthesia: None Procedure Tolerated: No Complications and Patient tolerated well Procedure Outcome: Successful Procedure Comment: Uncomplicated nerve block. Performed By: Samuel Diaz
[2023-04-05] MEDS: EPINEPHrine 30 MG/30 ML VIAL (13:25)
[2023-04-05] MEDS: fentaNYL 100 MCG/2 ML VIAL IVP ×2 (14:00→14:05)
[2023-04-05] MEDS: HYDROmorphone 2 MG/ML SYR IVP ×4 (14:15→14:57)
[2023-04-05] MEDS: oxyCODONE 5 MG TAB PO ×2 (15:16→15:54)
--- NOTE | 2023-04-05 15:53 | W.ANESPOSTOP ---
Postoperative Evaluation Date, Time and Location Date Performed: 04/05/23 Time Performed: 15:53 Patient Location: Day Surgery Unit Vital Signs Most Recent Imported Vital Signs: Most Recent Vital Signs Temp Pulse Resp BP Pulse Ox 36.4 C L 60 16 129/97 H 99 04/05/23 15:34 04/05/23 15:34 04/05/23 15:34 04/05/23 15:34 04/05/23 15:34 Pain Score Most Recent Pain Score: Most Recent Pain Score Pain Level 9 04/05/23 15:34 Assessment Mental Status: Awake (Alert & Oriented to Patient Baseline) Airway and Respiratory Function: Patent airway with normal (patient baseline) respiratory exam Cardiovascular Function: Hemodynamically Stable Hydration Status: Adequately Hydrated Nausea & Vomiting: No Nausea or Vomiting Pain: Pain is Moderate or Severe Postoperative Pain Management: Patient having pain, declines treatment, wishes to be discharged and Pain being addressed with medication Peripheral Nerve Block: Regional nerve block not resolved at time of post operative discharge Postoperative Comments:: Pt. states his block is not working. He denies any numbness or tingling, but also tells me when he uses his cell phone to text, he has a hard time using his hand. He is also unable to lift his left arm on exam. His vital signs are very stable without hypertension or tachycardia/tachypnea and he is conversive while not in any obvious distress, texting on his phone when I entered the room. We discussed that it would be odd to have these motor findings with the amount of discomfort he is complaining of, however every person is different and we certainly want him to be tolerably comfortable. He states he is a 9.75/10 in pain but he would be comfortable at a 9.5. He remains pleasant and wishes to be discharged home which i believe is a very reasonable plan.
--- NOTE | 2023-04-06 18:48 | PDOC.ANES ---
Date of service: 04/06/23 Time of Service: 18:48 Anesthesia Note Report Anesthesia Note: I just spoke to Eduardo on the phone. He states he went home after surgery yesterday and was very uncomfortable. He then said the nerve block kicked in last evening and he was pain free until around 10am this morning when the pain in his left shoulder/upper arm returned. He denies any numbness or tingling and states he is able to move his arm normally now. He has been taking the oxycodone and aleve as prescribed and icing the area but states his pain is not tolerable and is severe. He asked if ice was ok. I read his discharge instructions which did not seem to address ice and so I told him he could call the hospital to try and reach Dr. Jose or wait until Saturday when the office is open to ask this question. I also advised if he is 10/10 pain, that he could go to the emergency room to be evaluated if he is unable to reach Dr. Jose. He seemed very calm and cooperative and was not crying/yelling on phone. He verbalized his understanding of this plan.
== END 2023-04-05 16:25 | disposition home or self-care (01) ==
PROVIDERS: PCP Nurse Practitioner Family; Visit Provider Student in an Organized Health Care Education/Training Program
PROC: (CPT 29827; principal; 2023-04-05 11:15)
DX: M75.102 Unspecified rotator cuff tear or rupture of left shoulder, not specified as traumatic (principal); M75.22 Bicipital tendinitis, left shoulder; M75.52 Bursitis of left shoulder; M65.812 Other synovitis and tenosynovitis, left shoulder; M24.112 Other articular cartilage disorders, left shoulder; M75.82 Other shoulder lesions, left shoulder
CPT/HCPCS: 29827; 29826; 29828; 29823; 76942; J0690; J1100; J1170; J2250; J2371; J2405; J2704; J3010

== ENCOUNTER 2023-06-06 04:06 | Outpatient (CLI) | payer MEDICAID, SELFPAY ==
[2023-06-06 10:25] LABS: Abs Immature Grans 0.13 10^3/uL (0.0-0.06); Absolute Basophil Count 0.05 10^3/uL (0.0-0.2); Absolute Eosinophil Count 0.07 10^3/uL (0.0-0.7); Absolute Monocyte Count 0.79 10^3/uL (0.1-0.8); Basophils % 0.6; Eosinophils % 0.8; HCT 35.2 % (40.0-50.0); HGB 12.1 g/dL (13.5-17.5); Immature Grans % 1.5; Lymphocytes % 13.4; MCH 34.9 pg (27.0-33.0); MCHC 34.4 % (32.0-36.0); MCV 101 fL (80-95); MPV 8.9 fL (8.0-11.0); Monocytes % 8.8; Neutrophils % 74.9; Platelet Count 216 10^3/uL (130-400); RBC 3.47 10^6/uL (4.36-5.78); RDW 14.8 % (11.8-14.1); RDW-SD 54.5 fL; WBC 8.94 10^3/uL (4.4-10.8)
[2023-06-06 10:45] LABS: ALT 83 U/L (16-63); AST 53 U/L (15-37); Albumin 3.7 g/dL (3.4-5.0); Alkaline Phosphatase 136 U/L (46-116); Anion Gap 7.6 mmol/L (3-11); BUN 12 mg/dL (7-18); Bilirubin, Total 0.7 mg/dL (0.2-1.0); C-Reactive Protein 0.75 mg/dL (0.0-0.3); CO2 26.4 mmol/L (21.0-32.0); CREATININE 0.9 mg/dL (0.70-1.30); Calcium 8.8 mg/dL (8.5-10.1); Chloride 100 mmol/L (98-107); Estimated GFR 97.17 (mL/min/1.73m2); Glucose 107 mg/dL (74-106); Potassium 4.3 mmol/L (3.5-5.1); Sodium 134 mmol/L (136-145); Total Protein 6.9 g/dL (6.4-8.2)
== END 2023-06-06 04:07 | disposition home or self-care (01) ==
LOC: LBO 04:06
PROVIDERS: PCP Nurse Practitioner Family; Visit Provider Internal Medicine Rheumatology
DX: Z79.899 Other long term (current) drug therapy (principal)
CPT/HCPCS: 36415; 80053; 85025; 86140

== ENCOUNTER → 2023-06-20 02:54 | Outpatient (CLI) | payer MEDICAID, SELFPAY ==
--- NOTE | 2023-06-20 08:10 | DI.MRI_ITS ---
Exam(s) MR UPPER JOINT LT WO EXAM: MR UPPER JOINT LT WO CLINICAL HISTORY: L SHOULDER PAIN,TRAUMATIC TEAR LT ROTATOR CUFF,S46.012A TECHNIQUE: Multiplanar multisequence MRI of the shoulder was performed. COMPARISON: MR MR UPPER JOINT LT WO from 02/19/2023 FINDINGS: MARROW:There is no evidence of fracture, Hill-Sachs deformity, nor ominous osseous lesions. ROTATOR CUFF MECHANISM: There has been interval rotator cuff surgery since the most recent MRI scan o f February 19, 2023 AC JOINT/ACROMIUM: Prior decompression surgery.. There is no evidence of os acromiale. Supraspinatus: There is a large full-thickness tear of the supraspinatus with retraction musculotendi nous junction to the mid aspect of the humeral head with communication of fluid between the glenohume ral joint and subacromial bursa space. No prominent muscle atrophy. Infraspinatus: Significant partial-thickness tearing superimposed upon tendinosis signal. Teres Minor: Intact. No evidence of tear nor muscle atrophy. Subscapularis/anterior cuff: Intact. No abnormal signal at the level of the multipennate insertional fibers. No significant tear nor atrophy. BICEPS TENDON: Not displaced from the intertubercular groove. There is some thinning of the intra-ar ticular component of the tendon evident LABRUM: No labral tear identified. No evidence of paralabral cyst. GLENOHUMERAL JOINT: Joint effusion noted with extension into the subacromial space to the large bare area. Mild degenerative changes. No osteophytes. Four fastener channels in the lateral humeral hea d noted. IMPRESSION: 1. Large full-thickness tear of the supraspinatus with retraction of the musculotendinous junction to the mid aspect of the humeral head with resultant large bare area space and continuity of fluid betw een the glenohumeral joint and subacromial space. Also partial tearing of the infraspinatus. Anteri or cuff-subscapularis is intact. 2. No evidence of obvious biceps tendon nor labral tear. DATA REPOSITORY:
== END ==
PROVIDERS: PCP Nurse Practitioner Family; Visit Provider Student in an Organized Health Care Education/Training Program
DX: S46.012A Strain of muscle(s) and tendon(s) of the rotator cuff of left shoulder, initial encounter (principal); X58.XXXA Exposure to other specified factors, initial encounter
CPT/HCPCS: 73221

== ENCOUNTER 2023-06-26 15:20 | Outpatient (CLI) | payer MEDICAID, SELFPAY ==
[2023-06-26 14:24] LABS: ESR 5 mm/hr (0-20)
[2023-06-26 15:19] LABS: C-Reactive Protein 0.84 mg/dL (0.0-0.3)
[2023-06-27 11:31] LABS: Abs Immature Grans 0.04 10^3/uL (0.0-0.06); Absolute Basophil Count 0.07 10^3/uL (0.0-0.2); Absolute Lymphocyte Count 1.66 10^3/uL (1.2-3.4); Absolute Monocyte Count 0.72 10^3/uL (0.1-0.8); Absolute Neutrophil Count 5.92 10^3/uL (1.2-6.7); Basophils % 0.8; Eosinophils % 1.2; HCT 40.4 % (40.0-50.0); HGB 13.2 g/dL (13.5-17.5); Immature Grans % 0.5; Lymphocytes % 19.5; MCH 33.7 pg (27.0-33.0); MCHC 32.7 % (32.0-36.0); MCV 103 fL (80-95); Monocytes % 8.5; Neutrophils % 69.5; Platelet Count 415 10^3/uL (130-400); RBC 3.92 10^6/uL (4.36-5.78); RDW 14.1 % (11.8-14.1); WBC 8.51 10^3/uL (4.4-10.8)
== END 2023-06-26 15:21 | disposition home or self-care (01) ==
LOC: LBO 15:20
PROVIDERS: PCP Nurse Practitioner Family; Visit Provider Student in an Organized Health Care Education/Training Program
DX: S46.012A Strain of muscle(s) and tendon(s) of the rotator cuff of left shoulder, initial encounter (principal)
CPT/HCPCS: 36415; 85652; 85025; 86140

== ENCOUNTER 2023-06-28 07:37 | Day surgery (SDC) | payer MEDICAID, SELFPAY ==
[2023-06-28] VITALS (9 sets, daily range): BP systolic 116–140; BP diastolic 78–90; PULSE 70–92; RESP 14–22; TEMP 36.3–36.7; O2SAT 96–100; BMI 31.8
--- NOTE | 2023-06-28 07:02 | PDOC.DSDIS_ITS ---
Date of service: 06/28/23 Time of Service: 13:00 Discharge Plan Disposition Patient Disposition: Home Condition: Stable Discharge Details Attending Provider: Brigido Jose Primary Care Provider: JORGE CARBAJAL Home Meds and New Rx's Prescriptions: New oxycodone 5 mg tablet 5 - 15 mg PO Q4H MDD 30 mg PRN (Reason: moderate to severe pain) Qty: 30 0RF Continued oxybutynin chloride 10 mg tablet extended release 24hr 10 mg PO DAILY Qty: 90 3RF folic acid 1 mg tablet 1 mg PO DAILY celecoxib 200 mg capsule 200 mg PO DAILY PRN (Reason: shoulder pain) Qty: 90 0RF zolpidem 6.25 MG tablet,ext release multiphase 6.25 mg PO PRN triamcinolone acetonide 0.1 % cream 1 applic TP BID PRN omeprazole 10 mg capsule,delayed release(DR/EC) 40 mg PO DAILY lisinopril 30 mg tablet 30 mg PO DAILY valacyclovir 1 gram tablet 2,000 mg PO Q12H PRN methotrexate sodium 10 mg tablet 15 mg PO QWEEK aspirin 81 mg Tablet,Delayed Release (Dr/Ec) 81 mg PO DAILY One-A-Day Men's Multivitamin 400-20-300 mcg Tablet 1 tab PO DAILY acetaminophen 500 mg tablet 500 mg PO Q6H PRN (Reason: pain) Qty: 60 2RF hydroxychloroquine 200 mg tablet 200 mg PO BID Patient Comments: TK 1 T PO BID Discharge Instructions Additional Instructions: Surgery: Left shoulder arthroscopy with revision rotator cuff repair and extensive debridement including removal of prior hardware Activity: For 6 weeks, you should keep your arm at your side in a neutral position at all times except for physical therapy. Do not try to lift or raise your arm using your own muscles. You should use the sling whenever you are out of the house. You may have to adjust the abduction pillow or remove it for comfort. At home it is best to remove the sling and rest the arm on a pillow at your side or support the operative side with your other hand. You may allow the arm to dangle at your side. A physical therapy prescription will be sent electronically to begin in about 3 weeks. CONSERVATIVE protocol. Prescriptions: Resume Aspirin 81 mg daily tomorrow Celecoxib 200 mg daily as needed for moderate pain Oxycodone 5 mg take 1-3 every 4-6 hours as needed for moderate to severe pain You may use [id number] Tylenol (acetaminophen) as needed for mild pain. These pain medications may be taken all at once or in different combinations as needed. Also, recommend Colace (docusate) as a stool softener as surgery and pain medicine cause constipation. You may try [id number] diphenhydramine (Benadryl) 25-50 mg nightly as a sleep aid Dressings: Remove shoulder bandage after 3 days. Leave the sticky Steri-Strips in place until they fall off or remove them after you shower. Cover the incisions with Band-Aids or leave them open to air. You may shower after 5 days. Follow-up: 10-[address] Jose You may take off the leg compression stockings this evening at home. You may also leave them on a few days longer if you have a history of leg swelling or edema. Let us know right away if you develop any redness, drainage, fevers, chest pain, or trouble breathing. Do not drink alcohol or drive for at least 24 hours after anesthesia. Please call the office during business hours with any questions or concerns. Stand Alone Forms: Anesthesia Discharge Inst[facility]cal ([facility]) Referrals: Brigido Jose MD [ [facility] STAFF PHYSICIAN] - 07/10/23 8:30 am Discharge Orders Discharge Orders: Discharge Order (Routine); Ordered 06/28/23 Ordered By: Brigido Jose DS: Diagnosis Discharge Diagnosis (1) Traumatic tear of left rotator cuff: Status: Acute
--- NOTE | 2023-06-28 07:06 | ROE_ITS ---
Date of service: 06/28/23 Time of Service: 10:00 Operative Note Operative Note DATE OF PROCEDURE: 06/28/23 PRE-OP DIAGNOSIS: Left: 1. Recurrent rotator cuff tear POST-OP DIAGNOSIS: same PROCEDURE: Left: 1. Revision rotator cuff repair, CPT# 57940. This involved repair of the supraspinatus and infraspinatus using anchor and sutures to reattach the rotator cuff back to the footprint of the greater tuberosity. 2. Revision extensive debridement, CPT# 80652. This involved using arthroscopic hand instruments, power instruments, and radiofrequency instruments to debride glenohumeral and subacromial adhesions, synovitis, and bursitis; remove all prior permanent suture material from the greater tuberosity and rotator cuff; remove all 4 previously placed suture anchors; additionally smooth of the greater tuberosity given the irregular contour from bone holes with defects as a tuberoplasty. The cosmetic sales assistant was medically required in order to help assist in techniques above, which require positioning the arm, holding the arthroscope, and manipulating multiple instruments and sutures at the same time. This cannot be done without the help of an experienced cosmetic sales assistant. SURGEON: Brigido Jose IN [employer]ASSROOM TUTOR: Marcie Orellana ANESTHESIA TYPE: Local By Surgeon, General LMA/ETT and Primary Nerve Block Refer to Anesthesia Record ESTIMATED BLOOD LOSS: 10 PATHOLOGY: none sent COMPLICATIONS: None Patient was transported to: PACU Patient's condition: stable Implants: Arthrex: 5.5mm SwiveLocks x4 and 3.9mm Corkscrews x2 Indications: The patient was diagnosed with the above conditions and appropriately indicated for surgical intervention. Please see complete medical record for details. Findings: Exam under anesthesia: Full range of motion, no instability Glenohumeral joint: Reasonably preserved but humeral cartilage with only mild chondromalacia centrally. Previously debrided labrum stable. Subscapularis remained intact. Significant synovitis anteriorly and superiorly. Subacromial space: Significant bursitis. Apparent mechanical failure of previous modified speed bridge rotator cuff repair. All 4 suture anchors still in bone. Minimal backing up on the posterior medial row anchor. All suture material still in place and connected including the speed bridge FiberTape's and the additional suture tape FiberLink's. Complete failure of the repair with detachment of the rotator cuff anteriorly centrally and posteriorly involving the percent and upper infraspinatus. Intact biceps tenodesis with the top of the tendon visualized stably fixated at the superior aspect bicipital groove and its suture well attached to the anterior medial row anchor bone even after removal of the suture anchor and other suture material. Reasonable remnant supraspinatus tissue quality having already been debrided. Procedure Description: In the operating room, general anesthesia was induced. Bilateral shoulders were examined. The patient was positioned in the beachchair position. All bony prominences were well-padded. Preoperative antibiotics were administered. The Left shoulder was prepped and draped in the usual sterile fashion. The correct patient, procedure, and side of the procedure were all verified prior to incision. Starting through the previous posterior portal a standard complete diagnostic arthroscopy was performed of the glenohumeral joint including inspection of the long head of the biceps, anterior and superior labrum, subscapularis tendon, supraspinatus and infraspinatus tendons, and axillary recess. The glenoid and humeral head cartilage as well as the posterior labrum were inspected from the previous anterior superior lateral viewing portal. Significant findings and interventions noted above. The previous posterior superior lateral and lateral portals were established. Significant time was spent debriding and removing all material from the previous repair including all 4 suture anchors, anchor eyelet, and all FiberTape's and suture tape FiberLink's. Soft tissue attached to the sutures and some of the suture anchors and suture material was divided into 2 specimen cups sent for culture in case there is an indolent Propionibacterium infection although this appears to be mechanical failure. The fixation points appeared appropriate with the rotator cuff having pulled back from the speed bridge configuration and had vertical in line sawing of the supraspinatus centrally from the speed bridge medial row pulling out. The remainder of the rotator cuff was actually quite thick as previously noted and naranjo. Once all previous material was removed the rotator cuff was debrided confirming a stable margin. There was minimal tended most centrally but moderate tendon anteriorly and posteriorly of largely the supraspinatus. The lateral row anchors must of been stressed as once they were removed they revealed large lateral coalesced bone hole. The decision was challenging between allograft reconstruction and revision rotator cuff repair. There was significantly limited fixation points given the previously paced speed bridge and significant bone defect laterally and centrally. Additional medial anchors could be placed potentially, none centrally of the tuberosity as they would enter the large lateral void, and it was not possible really to revise the lateral row fixation. The supraspinatus anteriorly had a reasonably good excursion with only mild tension over the anterior third of the greater tuberosity, the posterior supraspinatus infraspinatus had even better excursion still over the posterior half of the greater tuberosity, and there was tissue loss most centrally, but the rotator cuff tendon supraspinous remnant could be brought past the previously placed fixation and across the previously medialized footprint. The superior glenoid was inspected and the was not exposed at all given the amount of supraspinatus and infraspinatus tendon still present. Additional adhesions were released between the rotator cuff and the glenoid and acromion. Appropriate tendon excursion was confirmed with the arm in about a neutral position. The initial plan was going to involve reusing the medial row fixation points and upsizing the anchors. I began place an inverted horizontal mattress FiberTape stitch in the posterior aspect of the supraspinatus. Traction showed some reduction of the U-shaped residual tear of the supraspinatus. Next a suture tape was placed simple stitch at the medial aspect of the U of the tear and secured with SMC arthroscopic knot reducing the gap and defect here. The anterior aspect of the tear was then brought over fairly readily the anterior medial previous fixation point. Again, there was no real possibility of lateral row fixation given the bone loss although the amount of tendon anterior laterally and posterior laterally could possibly have been incorporated to a central lateral or far lateral anchor it would have been possible. The undersized punch was used to confirm same trajectory in the posterior medial row suture site, a larger 5.5 mm suture anchor was loaded with the FiberTape repair sutures, and the suture anchor deployed. It only had bone purchase on the tip of the screw with the hole being even larger and needed, it was tested and had some mild motion it was then more vigorously tested and able to be pulled out. This suture anchor, eyelet, and FiberTape were all removed. Fixation points were inspected and again extremely limited. The anterior medial row previous suture site was similarly sized so it would be avoided as well. Central anchor would have been more ideal at this point but there was a large bone void below. Instead a central medial row anchor was prepunch, did not coalesce with any of the other suture anchor holes, and the punch had reasonable resistance and promising bone. Plan was going to use this single point of fixation to bring the anterior cuff posteriorly and the posterior cuff anteriorly for repair. FiberTape was then placed again in the posterior supraspinatus inverted horizontal mattress and this repeated in the anterior supraspinatus. Loaded onto a 5.5 mm swivel lock anchor and deployed the majority of the way with excellent bone purchase and fixation strength throughout placement. However, the anchor did not sit all the way flush with the greater tuberosity with the medial side being more prominent in the lateral side being in the bone. The anchor was vigorously tested and had no motion, instead it moved to the greater tuberosity. The repair was also stable and had reasonably good supraspinatus tissue brought over the greater tuberosity anteriorly and posteriorly. The medial row area of most deficient tissue was also just to the anchor and covering again the medialized footprint. Given the limited options for fixation, decision was made to leave this anchor in place. One of the safety FiberWire suture was then passed through the anterior slightly more posterior a spect of the supraspinatus and secured additionally with SMC arthroscopic knot. The mechanical shaver was then used to gently abrade the prominent side of the suture anchor to a relatively smooth contour with the tuberosity bone and rotator cuff repair. The repair was stable through range of motion and additional testing on the suture anchor. Again, unfortunately the failure of the previous repair left limited options available but the revision repair was reasonably good and stable. Patient will be counseled on following rotator cuff repair protocol this time around. Any revision surgery would probably be reverse total shoulder arthroplasty given the poor bone quality and bone loss now on the greater tuberosity that would prevent SCR fixation. The shoulder was drained of arthroscopic fluid. All portal sites were copiously irrigated. These incisions were closed using 3-0 Monocryl in a buried fashion and then covered with Mastisol, Steri-Strips, Xeroform, dry gauze, and ABDs. Th e dressings were covered and secured with Medipore tape. The operative extremity was placed into a sling for immobilization. The patient awoke from anesthesia without complication and was transferred to the recovery room in a stable condition.
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
[2023-06-28] MEDS: Lactated Ringers 1,000 ML 30 ML IV (08:50)
[2023-06-28] MEDS: ceFAZolin 2 GM/50 ML BAG IVPB (09:34)
--- NOTE | 2023-06-28 10:01 | W.ANESNERVE ---
Nerve Block Single Injection Procedure Date and Time Date Performed: 06/28/23 Procedure Start: 08:57 Location Where Procedure Performed Procedure Location: Day Surgery Unit Reason Performed: Postoperative Analgesia Requesting Provider: Brigido Jose Timeout Performed Timeout Performed: Yes Monitoring Used ECG, Blood Pressure, SpO2 and See EMR for corresponding vital signs Sterility Sterility: Hand Hygiene, Surgical Cap, Surgical Mask, Sterile Gloves, Sterile Drape/Sheet and Chlorhexidine Sedation Given During Procedure Sedation Given (Indicate Dose Given): Versed IV Dose:: 2 mg Patient Mental Status Patient Mental Status: Sedate with meaningful communication Nerve Block 1st Nerve Block: Laterality: Left Block Type: Interscalene Ultrasound Image Saved?: Yes Needle / Catheter Used: 100mm SonoPlex II Local Anesthetic Bolus (Indicate Dose Given): Lidocaine used for local infiltration of skin, Injected in 3-5ml increments after negative blood aspiration, Blood noted on aspiration (needle withdrawn, line cleared and all other aspirations negative for blood), Bupivacaine 0.5% Dose:: 10 ml and Exparel Dose:: 10 ml Additives (Indicate Dose Given): None Ultrasound: Sterile probe cover and gel used Nerve Stimulator: Supplement to Ultrasound use and No twitch or parasthesia noted < 0.5 mA Paresthesia: None Procedure Tolerated: No Complications and Patient tolerated well Procedure Outcome: Successful Procedure Comment: [id number] patient states he is unable to lift left arm off of bed Performed By: Shivani Brito
[2023-06-28] MEDS: Bupivacaine 0.25% Pres-Free 30 ML VIAL (10:09)
[2023-06-28] MEDS: Tranexamic Acid 1,000 MG/10 ML VIAL 1000 MG (10:45)
[2023-06-28] MEDS: EPINEPHrine 30 MG/30 ML VIAL (11:40)
--- NOTE | 2023-06-28 14:10 | W.ANESPOSTOP ---
Postoperative Evaluation Date, Time and Location Date Performed: 06/28/23 Time Performed: 14:10 Patient Location: Day Surgery Unit Vital Signs Most Recent Imported Vital Signs: Most Recent Vital Signs Temp Pulse Resp BP Pulse Ox 36.3 C L 70 16 134/83 96 06/28/23 13:17 06/28/23 13:17 06/28/23 13:17 06/28/23 13:17 06/28/23 13:17 Pain Score Most Recent Pain Score: Most Recent Pain Score Pain Level 0 06/28/23 13:17 Assessment Mental Status: Awake (Alert & Oriented to Patient Baseline) Airway and Respiratory Function: Patent airway with normal (patient baseline) respiratory exam Cardiovascular Function: Hemodynamically Stable Hydration Status: Adequately Hydrated Nausea & Vomiting: No Nausea or Vomiting Pain: Pt. Denies Any Pain Peripheral Nerve Block: Regional nerve block not resolved at time of post operative discharge
== END 2023-06-28 14:10 | disposition home or self-care (01) ==
PROVIDERS: PCP Nurse Practitioner Family; Visit Provider Student in an Organized Health Care Education/Training Program
PROC: (CPT 29827; principal; 2023-06-28 09:45)
DX: M75.102 Unspecified rotator cuff tear or rupture of left shoulder, not specified as traumatic (principal); M94.212 Chondromalacia, left shoulder; M75.52 Bursitis of left shoulder
CPT/HCPCS: 29827; 29823; 76942; 87070; 87075; 87205; J0690; J1100; J1885; J2001; J2250; J2371; J2405; J2704

== ENCOUNTER 2023-08-09 08:30 | Outpatient (CLI) | payer MEDICAID, SELFPAY ==
--- NOTE | 2023-08-09 08:00 | DI.RAD_ITS ---
Exam(s) XR KNEE RT 3V AP,LAT,LENNOX XR KNEE LT 3V AP,LAT,LENNOX EXAM: XR KNEE LT 3V AP,LAT,LENNOX CLINICAL HISTORY: eval L knee pain and stiffness. TECHNIQUE: 2D digital imaging was performed. Three views. COMPARISON: CR XR KNEE RT 2V AP,LAT from 03/09/2022 CR XR KNEE LT 2V AP,LAT from 03/09/2022 CR XR KNEE RT 3V AP,LAT,LENNOX from 08/09/2023 FINDINGS: BONES: No acute fracture is present. No bony destructive lesion is seen. JOINTS: The bilateral total knee prostheses appear unchanged in alignment. Small joint effusions are seen. Calcifications are again noted in the right suprapatellar region. SOFT TISSUE: Vascular calcification IMPRESSION: Stable appearance of bilateral total knee prostheses. DATA REPOSITORY: RADIATION DOSE DELIVERED:
== END 2023-08-09 08:31 | disposition home or self-care (01) ==
LOC: DIORS 08:30
PROVIDERS: PCP Nurse Practitioner Family; Referring Provider Nurse Practitioner Family; Visit Provider Student in an Organized Health Care Education/Training Program
DX: T84.84XA Pain due to internal orthopedic prosthetic devices, implants and grafts, initial encounter (principal); Z96.651 Presence of right artificial knee joint; Z96.652 Presence of left artificial knee joint
CPT/HCPCS: 73562

== ENCOUNTER → 2023-08-14 02:11 | Outpatient (CLI) | payer MEDICAID, SELFPAY ==
--- NOTE | 2023-08-14 08:15 | DI.MRI_ITS ---
Exam(s) MR UPPER JOINT LT WO EXAM: MR UPPER JOINT LT WO CLINICAL HISTORY: eval rtc, possible anchor failure,TRAUMATIC TEAR LT ROTATOR CUFF,H/O REPAIR. TECHNIQUE: Multiplanar multisequence MRI was performed. COMPARISON: No recent plain films. Plain films February 03. MRI 20 June 2023. FINDINGS: Exam somewhat limited by motion. BONES: There is now deformity of the superolateral portion of the humeral head with bony erosions and loss of articular cartilage. Previously noted fastener channels in the humeral head are on no longe r discretely visualized. Edema in subjacent humeral head. JOINTS:The acromioclavicular joint shows no inferior spurring. Postsurgical changes. The glenohumer al joint moderate-sized joint effusion, similar to prior. TENDONS: Supraspinatus: No change in full-thickness tear and retraction. Infraspinatus: Infraspinatus tendon appears unchanged with severe partial tear and thickening distally. Subscapularis: Unremarkable. Teres Minor: Unremarkable. Biceps and Dennison: Region of biceps anchor not well visualized. Distally, the biceps tendon appears normally positioned in the groove. MUSCLES: No significant atrophy. GLENOID LABRUM: Unremarkable on this noncontrast examination. SOFT TISSUES: Some metallic artifact superiorly secondary to prior surgery. OTHER: Subacromial and subdeltoid bursae show a small amount of fluid.. IMPRESSION: Exam somewhat limited by motion. Significant deformity of the superolateral humeral head with erosion at the area of the greater tuber osity and superior humeral head. Full-thickness tear with retract of the supraspinatus tendon as wel l as infraspinatus tendon tear appear unchanged. Biceps anchor is not well visualized, however the biceps tendon appears intact where visualized. DATA REPOSITORY:
== END ==
PROVIDERS: PCP Nurse Practitioner Family; Visit Provider Student in an Organized Health Care Education/Training Program
DX: M96.89 Other intraoperative and postprocedural complications and disorders of the musculoskeletal system (principal); S46.012A Strain of muscle(s) and tendon(s) of the rotator cuff of left shoulder, initial encounter; Z98.890 Other specified postprocedural states
CPT/HCPCS: 73221

== ENCOUNTER 2023-08-21 09:32 | Outpatient (CLI) | payer MEDICAID, SELFPAY ==
--- NOTE | 2023-08-21 09:00 | DI.RAD_ITS ---
Exam(s) XR SHOULDER LT COMPLETE 2+V EXAM: XR SHOULDER LT COMPLETE 2+V CLINICAL HISTORY: LEFT SHOULDER PAIN. TECHNIQUE: 2D digital imaging was performed of the left shoulder. Two images were obtained. Grashe y and Y views were obtained. COMPARISON: CR XR SHOULDER LT COMPLETE 2+V from 01/30/2023 MR MR UPPER JOINT LT WO from 08/14/2023 FINDINGS: BONES: No acute fracture is present. No bony destructive lesion is seen. Postsurgical changes are aga in seen at the acromioclavicular joint. There has been interval deformity of the lesser and greater tuberosities of the left humerus. This may be postsurgical. Please correlate with patient's clinica l history. No periosteal reaction is identified. JOINTS: No dislocation present. The glenohumeral joint is well maintained. SOFT TISSUE: Normal. IMPRESSION: New deformity involving the lateral aspect of the humeral head which may be postsurgical. Please cor relate clinically. Posttraumatic or destructive changes should also be considered. If there is no s urgical history, CT scan may be considered for further evaluation. DATA REPOSITORY: RADIATION DOSE DELIVERED:
== END 2023-08-21 09:33 | disposition home or self-care (01) ==
LOC: DIORS 09:32
PROVIDERS: PCP Nurse Practitioner Family; Visit Provider Student in an Organized Health Care Education/Training Program
DX: M21.922 Unspecified acquired deformity of left upper arm (principal)
CPT/HCPCS: 73030

== ENCOUNTER 2023-08-21 11:32 | Outpatient (CLI) | payer MEDICAID, SELFPAY ==
[2023-08-21 10:04] LABS: Abs Immature Grans 0.05 10^3/uL (0.0-0.06); Absolute Basophil Count 0.05 10^3/uL (0.0-0.2); Absolute Eosinophil Count 0.12 10^3/uL (0.0-0.7); Absolute Lymphocyte Count 1.38 10^3/uL (1.2-3.4); Absolute Neutrophil Count 6.01 10^3/uL (1.2-6.7); Basophils % 0.6; Eosinophils % 1.4; HCT 39.9 % (40.0-50.0); HGB 13.2 g/dL (13.5-17.5); Immature Grans % 0.6; Lymphocytes % 16.4; MCH 32.3 pg (27.0-33.0); MCHC 33.1 % (32.0-36.0); MCV 98 fL (80-95); MPV 8.1 fL (8.0-11.0); Monocytes % 9.5; Neutrophils % 71.5; Platelet Count 302 10^3/uL (130-400); RBC 4.09 10^6/uL (4.36-5.78); RDW 13.1 % (11.8-14.1); RDW-SD 46.9 fL; WBC 8.41 10^3/uL (4.4-10.8)
[2023-08-21 10:07] LABS: ESR 7 mm/hr (0-20)
[2023-08-21 10:41] LABS: ALT 23 U/L (16-63); AST 17 U/L (15-37); Alkaline Phosphatase 114 U/L (46-116); Anion Gap 9.4 mmol/L (3-11); BUN 18 mg/dL (7-18); Bilirubin, Total 0.3 mg/dL (0.2-1.0); C-Reactive Protein 0.88 mg/dL (0.0-0.3); CO2 26.6 mmol/L (21.0-32.0); Calcium 9.6 mg/dL (8.5-10.1); Chloride 104 mmol/L (98-107); Estimated GFR 85.63 (mL/min/1.73m2); Glucose 105 mg/dL (74-106); Potassium 4.4 mmol/L (3.5-5.1); Sodium 140 mmol/L (136-145); Total Protein 7.3 g/dL (6.4-8.2)
== END 2023-08-21 11:33 | disposition home or self-care (01) ==
LOC: LBO 11:33
PROVIDERS: Student in an Organized Health Care Education/Training Program; PCP Nurse Practitioner Family; Visit Provider Internal Medicine Rheumatology
DX: M96.89 Other intraoperative and postprocedural complications and disorders of the musculoskeletal system (principal)
CPT/HCPCS: 36415; 80053; 85652; 85025; 86140

== ENCOUNTER → 2023-08-22 00:47 | Outpatient (CLI) | payer MEDICAID, SELFPAY ==
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
== END ==
PROVIDERS: PCP Nurse Practitioner Family; Visit Provider Student in an Organized Health Care Education/Training Program
DX: Z96.651 Presence of right artificial knee joint (principal); T84.84XA Pain due to internal orthopedic prosthetic devices, implants and grafts, initial encounter; Z47.1 Aftercare following joint replacement surgery
CPT/HCPCS: 78315

== ENCOUNTER 2023-08-29 09:59 | Day surgery (SDC) | payer MEDICAID, SELFPAY ==
[2023-08-29] VITALS (10 sets, daily range): BP systolic 98–170; BP diastolic 57–91; PULSE 60–85; RESP 16–23; TEMP 36.2–37; O2SAT 94–97; BMI 33.6
--- NOTE | 2023-08-29 07:16 | W.PM.DSUDISC ---
Date of service: 08/29/23 Time of Service: 16:00 Discharge Plan Disposition Patient Disposition: Home Condition: Stable Discharge Details Attending Provider: Brigido Jose Primary Care Provider: JORGE CARBAJAL Home Meds and New Rx's Prescriptions: New aspirin 81 mg tablet,delayed release (DR/EC) 81 mg PO DAILY 7 Days Qty: 7 0RF naproxen 250 mg tablet 250 - 500 mg PO BID PRN (Reason: Moderate pain) Qty: 40 0RF oxycodone 5 mg tablet 5 - 10 mg PO Q4H PRN (Reason: Moderate to severe pain) Qty: 20 0RF amoxicillin 500 mg capsule 1,000 mg PO TID 14 Days Qty: 84 0RF Bio-K plus 50 billion cell capsule,delayed release(DR/EC) 1 cap PO DAILY Qty: 14 0RF Continued oxybutynin chloride 10 mg tablet extended release 24hr 10 mg PO DAILY Qty: 90 3RF celecoxib 200 mg capsule 200 mg PO BID folic acid 1 mg tablet 1 mg PO DAILY rosuvastatin 5 mg tablet 5 mg PO DAILY oxycodone 10 mg tablet 10 mg PO Q6H MDD 40 mg PRN (Reason: severe pain) Qty: 12 0RF zolpidem 6.25 MG tablet,ext release multiphase 6.25 mg PO PRN triamcinolone acetonide 0.1 % cream 1 applic TP BID PRN omeprazole 10 mg capsule,delayed release(DR/EC) 40 mg PO DAILY lisinopril 30 mg tablet 30 mg PO DAILY valacyclovir 1 gram tablet 2,000 mg PO Q12H PRN methotrexate sodium 10 mg tablet 15 mg PO QWEEK aspirin 81 mg Tablet,Delayed Release (Dr/Ec) 81 mg PO DAILY One-A-Day Men's Multivitamin 400-20-300 mcg Tablet 1 tab PO DAILY acetaminophen 500 mg tablet 500 mg PO Q6H PRN (Reason: pain) Qty: 60 2RF hydroxychloroquine 200 mg tablet 200 mg PO BID Patient Comments: TK 1 T PO BID Discharge Instructions Additional Instructions: Surgery: Left shoulder revision extensive debridement including synovial biopsy, removal of loose suture anchor and suture pieces, and greater tuberosity tuberoplasty. Activity: You should gradually increase range of motion motion and use of your shoulder. You may use your shoulder for light activities. No heavy lifting, reaching overhead, or lifting away from body for approximately 6-8 weeks. You may use the sling whenever you are out of the house for a couple weeks. At home it is best to remove the sling and rest the arm on a pillow at your side or support the operative side with your other hand. A physical therapy prescription will be sent electronically to start in about 3 weeks. Prescriptions: Aspirin 81 mg take 1 daily to prevent a blood clot for 7 days Naproxen 250 mg take 1-2 every 12 hours with a meal as needed for moderate pain Oxycodone 5 mg take 1-2 every 4-6 hours as needed for severe pain Amoxicillin 500 mg take 2 every 8 hours for 14 days Probiotic/ Bio-K Plus take 1 daily You may use lvgr-bch-whmvzuk Tylenol (acetaminophen) as needed for mild pain. These pain medications may be taken all at once or in different combinations as needed. Also, recommend Colace (docusate) as a stool softener as surgery and pain medicine cause constipation. You may try qsup-cxk-dueozzh diphenhydramine (Benadryl) 25-50 mg nightly as a sleep aid Dressings: Remove shoulder bandage after 3 days. Leave the sticky Steri-Strips in place until they fall off or remove them after you shower. Cover the incisions with Band-Aids or leave them open to air. You may shower after 5 days. Follow-up: 10-[address] Jose You may take off the leg compression stockings this evening at home. You may also leave them on a few days longer if you have a history of leg swelling or edema. Let us know right away if you develop any redness, drainage, fevers, chest pain, or trouble breathing. Do not drink alcohol or drive for at least 24 hours after anesthesia. Please call the office during business hours with any questions or concerns. Discharge Orders Discharge Orders: Discharge Order (Routine); Ordered 08/29/23 Ordered By: Parth Mi DS: Diagnosis Discharge Diagnosis (1) Propionibacterium infection: Status: Acute (2) Rotator cuff tear arthropathy of left shoulder: Status: Acute
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
[2023-08-29] MEDS: Lactated Ringers 1,000 ML 30 ML IV ×2 (12:00→14:24)
[2023-08-29] MEDS: ceFAZolin 2 GM/50 ML BAG IVPB (13:00)
--- NOTE | 2023-08-29 13:18 | W.ANESNERVE ---
Nerve Block Single Injection Procedure Date and Time Date Performed: 08/29/23 Procedure Start: 12:25 Location Where Procedure Performed Procedure Location: Day Surgery Unit Reason Performed: Postoperative Analgesia Requesting Provider: Brigido Jose Timeout Performed Timeout Performed: Yes Monitoring Used ECG, Blood Pressure, SpO2, ETCO2 and See EMR for corresponding vital signs Sterility Sterility: Hand Hygiene, Surgical Cap, Surgical Mask, Sterile Gloves, Sterile Drape/Sheet, Eye Protection and Chlorhexidine Sedation Given During Procedure Sedation Given (Indicate Dose Given): Versed IV (Documented in Plexus) Dose:: 3mg IVP Patient Mental Status Patient Mental Status: Sedate with meaningful communication Nerve Block 1st Nerve Block: Laterality: Left Block Type: Interscalene Ultrasound Image Saved?: Yes Needle / Catheter Used: 80mm SonoPlex II Local Anesthetic Bolus (Indicate Dose Given): Lidocaine used for local infiltration of skin, Injected in 3-5ml increments after negative blood aspiration, Bupivacaine 0.5% Dose:: 0.5%/15cc (75mg) and Exparel Dose:: 1.33%/10cc (133mg) Additives (Indicate Dose Given): Epinephrine to make 1:200,000 (5mcg/ml) Dose:: 125mcg (1:200,000/5mcg/cc) Ultrasound: Sterile probe cover and gel used Nerve Stimulator: Not Used Paresthesia: None Procedure Tolerated: No Complications and Patient tolerated well Procedure Outcome: Successful Performed By: Titus Hartmann
[2023-08-29] MEDS: Bupivacaine 0.25% Pres-Free 30 ML VIAL (13:44)
[2023-08-29] MEDS: EPINEPHrine 10 MG/10 ML ML (14:14)
--- NOTE | 2023-08-29 14:48 | ROE_ITS ---
Date of service: 08/29/23 Time of Service: 14:00 Operative Note Operative Note DATE OF PROCEDURE: 06/28/23 PRE-OP DIAGNOSIS: Left: 1. Recurrent rotator cuff tear with loose suture anchor 2. Propionibacterium infection POST-OP DIAGNOSIS: same PROCEDURE: Left: 1. Revision extensive debridement, CPT# 76301. This involved using hand instruments, power instruments, and radiofrequency instruments to debride the supraspinatus rotator cuff tear; remove all prior permanent suture material from the greater tuberosity and rotator cuff; remove loose suture anchor pieces; smooth greater tuberosity bony prominences as a tuberoplasty. SURGEON: Brigido Jose CAMPAIGN MANAGEMENT SPECIALIST: Parth Mi ANESTHESIA TYPE: Local By Surgeon, General LMA/ETT and Primary Nerve Block Refer to Anesthesia Record ESTIMATED BLOOD LOSS: 10 PATHOLOGY: none sent COMPLICATIONS: None Patient was transported to: PACU Patient's condition: stable Implants: None Indications: The patient was diagnosed with the above conditions and appropriately indicated for surgical intervention. Please see complete medical record for details. Findings: Exam under anesthesia: Full range of motion, no instability Glenohumeral joint: Reasonably preserved glenoid and humeral cartilage with only mild chondromalacia centrally. Previously debrided labrum stable. Subscapularis remained intact. Mild synovitis anteriorly and superiorly. Subacromial space: Mild bursitis. Complete failure of the revision rotator cuff repair with the rotator cuff moderately attracted with all numerous sutures still attached, anchor eyelet attached to these sutures, and numerous small to medium suture anchor pieces distributed about the subacromial and glenohumeral spaces. Intact infraspinatus. Procedure Description: In the operating room, general anesthesia was induced. Bilateral shoulders were examined. The patient was positioned in the beachchair position. All bony prominences were well-padded. Preoperative antibiotics were administered. The Left shoulder was prepped and draped in the usual sterile fashion. The correct patient, procedure, and side of the procedure were all verified prior to incision. Previous posterior portal was opened and arthroscope inserted, the camera sheath obturator removed and joint effusion drained into the first specimen cup. It was viscous and is somewhat inflammatory but not obviously infection. 20 cc of 0.2 FiberTape Vivacaine containing epinephrine was then infiltrated about the planned posterior and lateral portals as well as the accessory anterior and superior lateral portals. A complete diagnostic arthroscopy was performed of the glenohumeral joint and then subacromial space was done. There was obvious full failure of the revision rotator cuff repair. Previous lateral portal was used and pituitary rongeur's used to meticulously grasp and remove all prior permanent suture material from the rotator cuff as well as the previous anchor eyelet. Suture material was distributed into specimen cups #2 and 3. A Mary cannula was then inserted laterally. Pituitary rongeurs were then used to obtain multiple soft tissue specimens from the marginally inflamed tissue of the remnant supraspinatus, rotator interval, and adjacent transverse humeral ligament and infraspinatus divided into specimen cups #4 and 5. The 4 mm and then 5 mm mechanical dorothea were used to thoroughly debride the greater tuberosity including smoothing the bone about a central bony prominence between the bone loss from the previous medial and lateral rows as well as contour into the intact infraspinatus greater tuberosity area as well as anteriorly towards the bicipital groove. The previously retained biceps tenodesis suture was then removed with the shaver from its healed position given duration from that surgery. The last central suture anchor site was debrided of fibrinous material, the suture anchor was not present. As expected from the MRI and the suture anchor would be in the lateral recess. The shaver and camera were switched multiple times between the posterior and lateral portals and thorough debridement done of the supraspinatus tendon remnant, inspect the areas above and below the supraspinatus including between the tendon and glenoid and medially anterior laterally. In the subcoracoid recess there was additional debris that was removed with mechanical shaver as well as debris encouraged out of the axillary recess that was removed as well. There was no single large suture anchor, but moderately sized debris found anteriorly in the gutter and between the transverse humeral ligament and bicipital groove as well as beneath the biceps sling and upper margin of the subscapularis. Once all visible debris had been removed, 12 L of normal saline had been irrigated through the joint, all inflammatory tissue had been debrided with the shaver through this process and coagulation achieved with a radiofrequency wand. Once again switching both portals and thoroughly checking all locations around the shoulder for any additional suture, suture anchor pieces, or pathology did not reveal any additional problems. An additional 2 L of normal saline were irrigated copiously through the central combined glenohumeral and subacromial spaces through the supraspinatus defect. The shoulder was drained of arthroscopic fluid. All portal sites were copiously irrigated. These incisions were closed using 3-0 Monocryl in a buried fashion and then covered with Mastisol, Steri-Strips, Xeroform, dry gauze, and ABDs. The dressings were covered and secured with Medipore tape. The operative extremity was placed into a sling for immobilization. The patient awoke from anesthesia without complication and was transferred to the recovery room in a stable condition.
--- NOTE | 2023-08-29 15:31 | W.ANESPOSTOP ---
Postoperative Evaluation Date, Time and Location Date Performed: 08/29/23 Time Performed: 15:31 Patient Location: Day Surgery Unit Vital Signs Most Recent Imported Vital Signs: Most Recent Vital Signs Temp Pulse Resp BP Pulse Ox 36.7 C 68 19 170/73 H 94 08/29/23 15:13 08/29/23 15:13 08/29/23 15:13 08/29/23 15:13 08/29/23 15:13 Pain Score Most Recent Pain Score: Most Recent Pain Score Pain Level 0 08/29/23 15:13 Assessment Mental Status: Awake (Alert & Oriented to Patient Baseline) Airway and Respiratory Function: Patent airway with normal (patient baseline) respiratory exam Cardiovascular Function: Hemodynamically Stable Hydration Status: Adequately Hydrated Nausea & Vomiting: No Nausea or Vomiting Pain: Pt. Denies Any Pain Peripheral Nerve Block: Regional nerve block not resolved at time of post operative discharge
== END 2023-08-29 17:00 | disposition home or self-care (01) ==
PROVIDERS: PCP Nurse Practitioner Family; Visit Provider Student in an Organized Health Care Education/Training Program
PROC: (CPT 29805; principal; 2023-08-29 12:45)
DX: S46.012A Strain of muscle(s) and tendon(s) of the rotator cuff of left shoulder, initial encounter (principal); M96.89 Other intraoperative and postprocedural complications and disorders of the musculoskeletal system; X58.XXXA Exposure to other specified factors, initial encounter; B96.89 Other specified bacterial agents as the cause of diseases classified elsewhere
CPT/HCPCS: 29823; 76942; 87070; 87075; 87205; J0131; J0171; J0690; J1100; J1885; J2250; J2405; J2704

== ENCOUNTER 2023-09-19 14:34 | Outpatient (CLI) | payer MEDICAID, SELFPAY ==
--- NOTE | 2023-09-19 14:48 | DI.RAD_ITS ---
Exam(s) XR FOOT LT COMPLETE EXAM: XR FOOT LT COMPLETE CLINICAL HISTORY: L foot pain. TECHNIQUE: 2D digital imaging was performed. Three views. COMPARISON: No exams were available for comparison FINDINGS: BONES: No acute fracture is present. No bony destructive lesion is seen. Small heel spur. JOINTS: No dislocation present. Flattening of the plantar arch. Minimal degenerative changes. SOFT TISSUE: Normal. IMPRESSION: Heel spur and mild degenerative changes. DATA REPOSITORY: RADIATION DOSE DELIVERED:
== END 2023-09-19 14:35 | disposition home or self-care (01) ==
LOC: DIORS 14:34
PROVIDERS: PCP Nurse Practitioner Family; Visit Provider Physician Assistant
DX: M19.072 Primary osteoarthritis, left ankle and foot (principal); M77.32 Calcaneal spur, left foot
CPT/HCPCS: 73630

== ENCOUNTER 2023-10-11 09:54 | Outpatient (CLI) | payer MEDICAID, SELFPAY ==
[2023-10-11 09:36] LABS: Abs Immature Grans 0.04 10^3/uL (0.0-0.06); Absolute Basophil Count 0.07 10^3/uL (0.0-0.2); Absolute Eosinophil Count 0.16 10^3/uL (0.0-0.7); Absolute Lymphocyte Count 1.34 10^3/uL (1.2-3.4); Absolute Monocyte Count 0.69 10^3/uL (0.1-0.8); Absolute Neutrophil Count 5.69 10^3/uL (1.2-6.7); Basophils % 0.9; HCT 38.3 % (40.0-50.0); HGB 12.7 g/dL (13.5-17.5); Immature Grans % 0.5; Lymphocytes % 16.8; MCH 31.1 pg (27.0-33.0); MCHC 33.2 % (32.0-36.0); MCV 94 fL (80-95); MPV 8.2 fL (8.0-11.0); Monocytes % 8.6; Neutrophils % 71.2; Platelet Count 296 10^3/uL (130-400); RBC 4.08 10^6/uL (4.36-5.78); RDW 13.6 % (11.8-14.1); RDW-SD 46.4 fL; WBC 7.99 10^3/uL (4.4-10.8)
[2023-10-11 09:48] LABS: ALT 50 U/L (16-63); AST 37 U/L (15-37); Albumin 3.8 g/dL (3.4-5.0); Alkaline Phosphatase 112 U/L (46-116); Anion Gap 8.6 mmol/L (3-11); BUN 21 mg/dL (7-18); Bilirubin, Total 1.1 mg/dL (0.2-1.0); C-Reactive Protein 2.16 mg/dL (0.0-0.3); CO2 28.4 mmol/L (21.0-32.0); Calcium 9.4 mg/dL (8.5-10.1); Chloride 100 mmol/L (98-107); Estimated GFR 85.63 (mL/min/1.73m2); Glucose 111 mg/dL (74-106); Potassium 4.5 mmol/L (3.5-5.1); Sodium 137 mmol/L (136-145); Total Protein 7.1 g/dL (6.4-8.2)
== END 2023-10-11 09:55 | disposition home or self-care (01) ==
LOC: LBO 09:55
PROVIDERS: PCP Nurse Practitioner Family; Visit Provider Internal Medicine Rheumatology
DX: M06.4 Inflammatory polyarthropathy (principal); Z79.899 Other long term (current) drug therapy
CPT/HCPCS: 36415; 80053; 85025; 86140

== ENCOUNTER 2023-10-15 10:39 | Day surgery (SDC) | payer MEDICAID, SELFPAY ==
[2023-10-15] VITALS (12 sets, daily range): BP systolic 115–141; BP diastolic 60–94; PULSE 69–108; RESP 13–21; TEMP 36.1–36.8; O2SAT 91–100; BMI 34.9
[2023-10-15] MEDS: Acetaminophen 500 MG TAB 1000 MG PO (11:19)
[2023-10-15] MEDS: Celecoxib 200 MG CAP 400 MG PO (11:19)
[2023-10-15] MEDS: Gabapentin 300 MG CAP PO (11:19)
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
--- NOTE | 2023-10-15 11:43 | W.PM.DSUDISC ---
Date of service: 10/15/23 Time of Service: 14:57 Discharge Plan Disposition Patient Disposition: Home Condition: Good Discharge Details Reason For Visit: Painful right TKA Attending Provider: Fabricio Lofton Primary Care Provider: JORGE CARBAJAL Home Meds and New Rx's Prescriptions: New acetaminophen 500 mg tablet 1,000 mg PO Q8H PRN Qty: 90 0RF Rx Instructions: Take two tablets up to every 8 hours as needed for pain ibuprofen 600 mg tablet 600 mg PO TID PRN (Reason: pain) Qty: 60 0RF oxycodone 5 mg tablet 5 mg PO Q4H PRNQty: 18 0RF Rx Instructions: Take one tablet up to every 4 hours as needed for severe postoperative pain Continued folic acid 1 mg tablet 1 mg PO DAILY rosuvastatin 5 mg tablet 5 mg PO DAILY zolpidem 6.25 MG tablet,ext release multiphase 6.25 mg PO PRN triamcinolone acetonide 0.1 % cream 1 applic TP BID PRN omeprazole 10 mg capsule,delayed release(DR/EC) 40 mg PO DAILY lisinopril 30 mg tablet 30 mg PO DAILY valacyclovir 1 gram tablet 2,000 mg PO Q12H PRN methotrexate sodium 10 mg tablet 15 mg PO QWEEK oxybutynin chloride 10 mg tablet extended release 24hr 10 mg PO DAILY Qty: 90 3RF aspirin 81 mg Tablet,Delayed Release (Dr/Ec) 81 mg PO DAILY One-A-Day Men's Multivitamin 400-20-300 mcg Tablet 1 tab PO DAILY hydroxychloroquine 200 mg tablet 200 mg PO BID Patient Comments: TK 1 T PO BID Discontinued acetaminophen 500 mg tablet 500 mg PO Q6H PRN (Reason: pain) Qty: 60 2RF naproxen 250 mg tablet 250 - 500 mg PO BID PRN (Reason: Moderate pain) Qty: 40 0RF Discharge Instructions Additional Instructions: Knee Manipulation and Open Synovectomy Discharge Instructions Activity: You should begin moving as soon as possible. You may work on flexion but also equally maintain extension. You may bear weight as tolerated, using crutches only for support/comfort. You should apply ice to help with swelling and elevate when possible (especially in the first few days). Dressings: Remove the Hai wrap by 2 days after your surgery and put on the GAIL stocking given to you from the hospital. Keep the surgical dressing (underneath the HAI wrap) in place for at least one week. After the first week it may be removed and replaced with light gauze and tape or nothing. The wound and dressing may get wet after 3 days but avoid soaking the dressing or otherwise it will need to be changed. Many people prefer covering the dressing with cling wrap (saran wrap) to minimize it from getting soaked. If it gets wet, just pat dry. If it starts to peel off then it will need to be changed. Medications: - Recommend to take up to 1000mg of Acetaminophen (Tylenol) and 600mg of Ibuprofen (Advil) every 8 hours as needed. These larger strength tablets were called in but you also may use [id number]. - You have been prescribed a narcotic, Oxycodone, as needed. Follow-up: 10-14 days If you have any acute concerns or questions, please do not hesitate to contact the office at [phone]. You may contact Dr. Lofton with any questions after hours through the hospital at [phone] or on his cell phone at [phone]. Referrals: Fabricio Lofton MD [ [facility] STAFF PHYSICIAN] - Equipment/Supplies: Walker Activity:: Elevate Remove Dressings/Wound Care:: Do Not Remove Shower/Bathe:: 72 hours and Cover Diet:: As Tolerated Discharge Orders Discharge Orders: Discharge Order (Routine); Ordered 10/15/23 Ordered By: Cheryl Haynes
[2023-10-15] MEDS: Lactated Ringers 1,000 ML 80 ML IV ×2 (11:47→15:59)
[2023-10-15] MEDS: ceFAZolin 2 GM/50 ML BAG IVPB (13:11)
--- NOTE | 2023-10-15 13:50 | W.ANESNERVE ---
Nerve Block Single Injection Procedure Date and Time Date Performed: 10/15/23 Procedure Start: 12:50 Location Where Procedure Performed Procedure Location: Day Surgery Unit Reason Performed: Postoperative Analgesia Requesting Provider: Fabricio Lofton Timeout Performed Timeout Performed: Yes Monitoring Used ECG, Blood Pressure, SpO2 and See EMR for corresponding vital signs Sterility Sterility: Hand Hygiene, Surgical Cap, Surgical Mask, Sterile Gloves and Chlorhexidine Sedation Given During Procedure Sedation Given (Indicate Dose Given): No Sedation given Patient Mental Status Patient Mental Status: Awake Nerve Block 1st Nerve Block: Laterality: Left Block Type: Adductor Canal Ultrasound Image Saved?: Yes Needle / Catheter Used: 100mm SonoPlex II Local Anesthetic Bolus (Indicate Dose Given): Lidocaine used for local infiltration of skin, Injected in 3-5ml increments after negative blood aspiration and Bupivacaine 0.25% Dose:: 20ml Additives (Indicate Dose Given): None Ultrasound: Sterile probe cover and gel used Nerve Stimulator: Not Used Paresthesia: None Procedure Tolerated: No Complications and Patient tolerated well Procedure Outcome: Successful Performed By: Samuel Diaz
[2023-10-15 14:18] LABS: Clarity Cloudy; Nucleated Cells 554 uL (0)
[2023-10-15 14:39] LABS: Mononuclear Cells 48 %; Polynuclear Cells 52 %
--- NOTE | 2023-10-15 14:41 | ROE_ITS ---
Date of service: 10/15/23 Time of Service: 13:30 Operative Note Operative Note DATE OF PROCEDURE: 10/15/23 PRE-OP DIAGNOSIS: Left TKA Synovitis and Crepitus PROCEDURE: Open synovectomy, left knee SURGEON: Fabricio Lofton WAITER/WAITRESS HEAD: Cheryl Haynes ANESTHESIA TYPE: Spinal Refer to Anesthesia Record ESTIMATED BLOOD LOSS: 50 PATHOLOGY: other (Fluid sample with cell count culture was sent to the lab in addition to a sample of synovium for culture.) TOURNIQUET TIME: 0 COMPLICATIONS: None Patient was transported to: PACU Patient's condition: stable Indications: Eduardo is a 63-year-old who is status post bilateral knee replacements just over 2 years ago. He continues have some pain and stiffness about the left knee. This pain is not necessarily start up and is worse throughout the day with some associated crepitus, more laterally than medially. Given the persistence of the symptoms he requested that something else be done. He been worked up negatively for infection including loosening. Therefore, I did offer an open synovectomy. I reviewed the technical details of the surgery. I discussed the risk to include bleeding, infection, pain, stiffness, damage to nerves or vessels, damage to muscle and tendons, need for repeat procedures, blood clot. Despite these risk, he elects to proceed. Findings: There was dense synovitis throughout the whole knee. There was extraneous bone which had formed around the patella, femur, and tibia. However, it was most significant around patella and at the lateral aspect of the tibial plateau. The bone?metal interface was investigated and showed a few areas of some softening. However, there was no gross loosening of the implants. Procedure Description: Eduardo was greeted in the preoperative holding area where the correct side was identified and marked. The consent was reviewed with the patient and signed. The history and physical was updated. All questions were answered. Preoperative mediacations were administered: Acetaminophen 1000mg, Celebrex 400mg, and Gabapentin 300mg. Eduardo was taken back to the operating room. A spinal anesthestic was administered. The patient was placed into the supine position on the operating room table. Posts were placed for positioning during the procedure. All bony prominences were well padded. Prophylactic antibiotics in the form of Cefazolin were administered. The left leg was then prepped with Chloraprep and draped in a standard fashion with impervious stockinette. A second prep with Chloraprep was performed prior to application of Iodine impregnated skin protection. A timeout to confirm correct identity, side and site, procedure, allergies, anesthesia, and medical concerns was performed. With the knee in some flexion, a midline incision was made overlying the knee utilizing the previous incision. Full thickness skin flaps were raised once the extensor mechanism was encountered. These were raised medially and laterally. Any bleeding was controlled with electrocautery. All the tissue planes were q uite adhesed together. Medial and lateral skin flaps were raised to fully evaluate the extensor mechanism. There is no defect of the extensor mechanism. An aspiration of fluid from the knee was obtained and sent to the lab for cell count and culture. This is fairly normal-appearing fluid. I then performed a medial parapatellar arthrotomy. There is significant synovitis. There is densities scar tissue. Adhesions throughout. A complete synovectomy was then performed utilizing 2 Allis and 2 Shay clamps. This is aggressively resected. Attention was turned to the medial lateral gutters as well. The knee was then flexed up and the polyethylene was removed. Synovectomy posteriorly was then performed both laterally and medially around the tibial implant. The bone?implant interface was inspected. There was no gross signs of loosening. A Artesia was utilized around this interface to assess for any areas of loosening. There were few areas where the Art[place]ia was able to penetrate 1 mm. However, the majority the interface was solid. There is no gross loosening. Manipulation of the implants and not have any fluid extravasation. There was bony loose bodies seen around the patella and around the tibial component. These were removed. A debridement was performed circumferentially around the tibia removing any loose bodies. Synovium from this debridement was sent to the lab for culture and evaluation. There was some synovitis seen in the lateral gutter which was also resected. After this complete synovectomy and further inspection of the knee, the polyethylene was reinserted. This is a new 7 x 5 mm rotating platform, cruciate retaining polyethylene. The knee was thoroughly irrigated with irrisept chlorhexidine solution. The periosteal and capsular tissues were then systematically injected with a periarticular cocktail consisting of ropivacaine, epinephrine, clonidine, and ketorolac. The arthrotomy was closed with interrupted #1 Vicryl followed by a running #2 barbed PDS suture. The deep layers were closed with both 0 and 2-0 Vicryl and Monocryl. The skin was closed with a running 3-0 Monocryl in a subcuticular fashion. This was reinforced with skin glue. A Mepilex silver dressing was applied along with a [id number] CAREY wrap. A CryoCuff was applied. Rishi was transferred to the hospital stretcher without difficulty an suffering no apparent complication. Eduardo has a good prognosis. I will follow the culture. Pathology results from the samples. Aspirin 81mg BID will be used for DVT prophylaxis.
[2023-10-15] MEDS: HYDROmorphone 2 MG/ML SYR IVP ×3 (15:09→15:29)
[2023-10-15] MEDS: Normal Saline Flush 10 ML SYR IV (15:17)
[2023-10-15] MEDS: fentaNYL 100 MCG/2 ML VIAL IVP ×2 (15:35→15:46)
--- NOTE | 2023-10-15 16:21 | W.ANESPOSTOP ---
Postoperative Evaluation Date, Time and Location Date Performed: 10/15/23 Time Performed: 16:21 Patient Location: Day Surgery Unit Vital Signs Most Recent Imported Vital Signs: Most Recent Vital Signs Temp Pulse Resp BP Pulse Ox 36.4 C L 69 18 141/78 H 91 L 10/15/23 16:12 10/15/23 16:00 10/15/23 16:12 10/15/23 16:12 10/15/23 16:12 Pain Score Most Recent Pain Score: Most Recent Pain Score Pain Level 6 10/15/23 16:12 Assessment Mental Status: Awake (Alert & Oriented to Patient Baseline) Airway and Respiratory Function: Patent airway with normal (patient baseline) respiratory exam Cardiovascular Function: Hemodynamically Stable Hydration Status: Adequately Hydrated Nausea & Vomiting: No Nausea or Vomiting Pain: Pain is Moderate or Severe Postoperative Pain Management: Other (Patient hemodynamics stable and looks comfortable, however is is stating 03/23. He states this is tolerable and wishes to go home. ) Peripheral Nerve Block: Regional nerve block not resolved at time of post operative discharge
== END 2023-10-15 17:45 | disposition home or self-care (01) ==
PROVIDERS: PCP Nurse Practitioner Family; Visit Provider Student in an Organized Health Care Education/Training Program
PROC: (CPT 27425; principal; 2023-10-15 12:45)
DX: T84.84XA Pain due to internal orthopedic prosthetic devices, implants and grafts, initial encounter (principal); M65.862 Other synovitis and tenosynovitis, left lower leg; I10 Essential (primary) hypertension; G47.33 Obstructive sleep apnea (adult) (pediatric); M93.1 Kienbock's disease of adults
CPT/HCPCS: 27335; 76942; 87070; 87205; 89051; C1776; J0665; J0690; J1100; J1170; J2250; J2401; J2405; J2704; J3010

== ENCOUNTER → 2023-11-05 03:06 | Outpatient (CLI) | payer MEDICAID, SELFPAY ==
--- NOTE | 2023-11-05 08:00 | DI.CT_ITS ---
Exam(s) CT CHEST WO EXAM: CT CHEST WO CLINICAL HISTORY: PAIN,h/o fx rib,z87.891. TECHNIQUE: Imaging protocol: Axial computed tomography images were obtained and coronal and sagittal reformatted images were created and reviewed. COMPARISON: CT CT CHEST PE ABD PELVIS W from 07/20/2021 FINDINGS: Tracheobronchial tree: Patent where visualized. Pulmonary parenchyma: No consolidation or dominant measurable mass. No architectural distortion. Mediastinum and Farida: No dominant adenopathy or fluid collection. The esophagus is unremarkable. Thyroid gland: Unremarkable. Pleura: No effusion or pneumothorax. Heart: The heart is not dilated. Coronary artery calcifications are present. There is a small perica rdial effusion. Aorta: Thoracic aorta non-dilated. Atherosclerosis. Upper abdomen: Unremarkable. Lymph nodes: Within normal limits. Soft tissues: Mild gynecomastia. Bones:Within normal limits for the patient's age. Multiple old bilateral healed rib fracture deformi ties. There is a healing nondisplaced fracture of the posterior aspect of the left 10th rib. IMPRESSION: 1. Subacute healing fracture of the posterior aspect of the left 10th rib. 2. Multiple bilateral old healed rib fracture deformities. 3. No acute pulmonary process. RADIATION DOSE DELIVERED: 788.73mGy.cm Total DLP 788.73mGy.cm Total DLP DATA REPOSITORY: All CT scans at this facility are submitted to the National Radiology Data Registry (NRDR) Dose Index Registry (DIR) with the [employer] (A[employer]). RADIATION OPTIMIZATION: All CT scans at this facility use at least one of these dose optimization te chniques: automated exposure control; mA and/or kV adjustment per patient size (includes targeted exa ms where dose is matched to clinical indication); or iterative reconstruction.
== END ==
PROVIDERS: PCP Nurse Practitioner Family; Visit Provider Student in an Organized Health Care Education/Training Program
DX: Z87.81 Personal history of (healed) traumatic fracture (principal); R07.81 Pleurodynia
CPT/HCPCS: 71250

== ENCOUNTER → 2023-11-20 00:57 | Outpatient (CLI) | payer MEDICAID, SELFPAY ==
--- NOTE | 2023-11-20 | DI.RAD_ITS ---
Exam(s) XR FOOT LT COMPLETE EXAM: XR FOOT LT COMPLETE CLINICAL HISTORY: PAIN LT FOOT, URSZULA FOOT JOINT PAIN, M79.671. TECHNIQUE: 2D digital imaging was performed. Three views. COMPARISON: CR XR FOOT LT COMPLETE from 09/19/2023 FINDINGS: BONES: No acute fracture is present. No bony destructive lesion is seen. Small ossicle adjacent to navicular. Plantar calcaneal spur. JOINTS: No dislocation present. Mild degenerative changes 2nd MTP joint. Mild degenerative changes intertarsal region. SOFT TISSUE: Normal. IMPRESSION: Mild degenerative changes. DATA REPOSITORY: RADIATION DOSE DELIVERED:
--- NOTE | 2023-11-20 08:30 | DI.RAD_ITS ---
Exam(s) XR FOOT RT COMPLETE EXAM: XR FOOT RT COMPLETE CLINICAL HISTORY: BORGES RT FOOT, M79.671, URSZULA FOOT JOINT PAIN, M79/672. TECHNIQUE: 2D digital imaging was performed. Three views. COMPARISON: CR XR FOOT LT COMPLETE from 11/20/2023 FINDINGS: BONES: No acute fracture is present. Old fracture deformity of the distal tibia. No bony destructiv e lesion is seen. JOINTS: No dislocation present. No significant degenerative changes. SOFT TISSUE: Normal. IMPRESSION: No acute abnormality. DATA REPOSITORY: RADIATION DOSE DELIVERED:
== END ==
PROVIDERS: PCP Nurse Practitioner Family; Visit Provider Nurse Practitioner Family
DX: M79.671 Pain in right foot (principal); M79.672 Pain in left foot
CPT/HCPCS: 73630

== ENCOUNTER 2024-01-24 15:04 | Outpatient (CLI) | payer MEDICAID, SELFPAY ==
[2024-01-24 14:01] LABS: Abs Immature Grans 0.06 10^3/uL (0.0-0.06); Absolute Basophil Count 0.04 10^3/uL (0.0-0.2); Absolute Eosinophil Count 0.08 10^3/uL (0.0-0.7); Absolute Lymphocyte Count 1.07 10^3/uL (1.2-3.4); Absolute Monocyte Count 0.56 10^3/uL (0.1-0.8); Absolute Neutrophil Count 4.16 10^3/uL (1.2-6.7); Basophils % 0.7; Eosinophils % 1.3; HCT 41.2 % (40.0-50.0); HGB 13.6 g/dL (13.5-17.5); Lymphocytes % 17.9; MCH 32.2 pg (27.0-33.0); MCV 98 fL (80-95); MPV 8.4 fL (8.0-11.0); Monocytes % 9.4; Neutrophils % 69.7; Platelet Count 231 10^3/uL (130-400); RBC 4.22 10^6/uL (4.36-5.78); RDW 14.1 % (11.8-14.1); RDW-SD 50.5 fL; WBC 5.97 10^3/uL (4.4-10.8)
[2024-01-24 15:21] LABS: ALT 34 U/L (16-63); AST 21 U/L (15-37); Albumin 4.1 g/dL (3.4-5.0); Alkaline Phosphatase 116 U/L (46-116); Anion Gap 11.9 mmol/L (3-11); BUN 18 mg/dL (7-18); Bilirubin, Total 0.5 mg/dL (0.2-1.0); CO2 27.1 mmol/L (21.0-32.0); CREATININE 0.9 mg/dL (0.70-1.30); Calcium 9.3 mg/dL (8.5-10.1); Chloride 104 mmol/L (98-107); Estimated GFR 97.17 (mL/min/1.73m2); Glucose 98 mg/dL (74-106); Potassium 3.9 mmol/L (3.5-5.1); Sodium 143 mmol/L (136-145); Total Protein 7.2 g/dL (6.4-8.2)
[2024-01-24 15:46] LABS: C-Reactive Protein 2.07 mg/dL (<or=0.5)
== END 2024-01-24 15:05 | disposition home or self-care (01) ==
LOC: LBO 15:04
PROVIDERS: PCP Nurse Practitioner Family; Visit Provider Internal Medicine Rheumatology
DX: Z79.899 Other long term (current) drug therapy (principal)
CPT/HCPCS: 36415; 80053; 85025; 86140

== ENCOUNTER → 2024-03-02 03:01 | Outpatient (CLI) | payer MEDICAID, SELFPAY ==
--- NOTE | 2024-03-02 09:10 | DI.MRI_ITS ---
Exam(s) MR LOWER JOINT LT WO EXAM: MR LOWER JOINT LT WO CLINICAL HISTORY: M76.822 PTTD LLE ankle, evalute for hindfoot arthritis TECHNIQUE: Multiplanar multisequence MRI was performed without intravenous contrast. COMPARISON: DX XR FOOT/ANKLE 5 VIEWS BILATERAL from 01/08/2024 FINDINGS: SKIN: No evidence of ulcer nor subcutaneous tract. BONES/JOINTS: No evidence of fracture nor bone contusion of the malleoli and talus.. The talar dome appears unremarkable. The ankle mortise is maintained. Small tibiotalar joint effusion extending p osteriorly around the flexor hallucis longus behind the ankle joint.. There is no evidence of para-a rticular ganglion.There is abnormal intraosseous signal in the navicular as well as the middle and me dial cuneiform bones as well as in the partially visualized 2nd and 3rd metatarsals. There is prominent edema throughout most of the middle cuneiform. This may represent subtle stress f racture. Also significant edema in the partially visualized proximal 3rd of the 2nd metatarsal. The re is no offset of the Lisfranc joint and main Lisfranc ligament appears intact. There is degenerative change at the articulation between the navicular as well as the medial cuneifor m, with degenerative subarticular cysts on both sides the joint and bone edema. Also some degenerati ve change at the articulation between the distal navicular and the proximal middle cuneiform. In add ition, there is mild degenerative change at the articulation between the great toe metatarsal and med ial cuneiform/1st tarsometatarsal joint. Also degenerative subarticular cysts are seen in the proxim al aspect of the 3rd metatarsal. Fourth and 5th metatarsal bases appear unremarkable as do the 4th a nd 5th tarsometatarsal joints. No significant signal abnormality in the calcaneus. There is no obvious degenerative change at the articulation between the distal talus and navicular an d no dorsal osteophytes at this level. However, there does appear to be thickening of the superior c apsule at this level. No loose body seen at this level. LIGAMENTS: The anterior and posterior tibiofibular and calcaneofibular ligaments are intact. The ante rior and posterior talofibular ligaments are intact. The deltoid ligament is intact. SINUS TARSI: There is no loss of the normal fat signal in this space. Interosseous ligament is intac t. There is no evidence of sinus tarsi ganglion cyst. ANTEROLATERAL GUTTER:There is no abnormal signal/abnormal tissue in this space. MUSCULOTENDINOUS STRUCTURES: Achilles tendon: There is some abnormal signal consistent with tendinitis. No prominent thickening. No full-thickness tear. Plantar fascia: Small inferior calcaneal spur noted. Mild thickening of the plantar fascia at this l evel but no abnormal high signal. Anterior Extensor tendons: Unremarkable. Medial Tendons: Posterior Tibialis: Unremarkable. No tear or tenosynovitis evident. Flexor Digitorum longus: Unremarkable. No tear or tenosynovitis evident. Flexor Hallicus longus: Unremarkable. No tear or tenosynovitis evident. Lateral Tendons: Peroneus longus: Exhibits an element of split tearing on the lateral aspect. No high-grade tear. Th ere is mild tenosynovitis of the prone is lung is. Peroneus brevis:Unremarkable. No tear nor tenosynovitis evident. SOFT TISSUES: No masses evident. OTHER FINDINGS: None. IMPRESSION: 1. Significant degenerative changes at the articulations of the midfoot, most evident between the dis blake navicular and the medial and middle cuneiform bones. There are both degenerative subarticular cy sts and surrounding intraosseous edema at these articulations. No ankylosis. No para-articular gang lion cysts evident. The most prominent intraosseous edema is in the middle cuneiform. Cannot exclud e a subtle stress fracture of this bone. There is also bone edema within the partially visualized pr oximal aspects of the 2nd and 3rd metatarsals. There is sparing of the 4th and 5th metatarsals as we ll as the cuboid. 2. Main Lisfranc ligament is intact. 3. There is an element of split tearing of the prone is longus at and distal to the lateral malleolus . Mild tenosynovitis of this tendon sheath is noted. 4. Tendinitis signal evident within the Achilles tendon. No high-grade tear. 5. Moderate size inferior calcaneal spur. Mild thickening of the plantar fascia but without promine nt signal abnormality DATA REPOSITORY:
== END ==
PROVIDERS: PCP Nurse Practitioner Family; Visit Provider Orthopaedic Surgery
DX: M19.072 Primary osteoarthritis, left ankle and foot (principal)
CPT/HCPCS: 73721

== ENCOUNTER 2024-04-20 09:15 | Outpatient (REF) | payer MEDICAID, SELFPAY ==
[2024-04-20 11:18] LABS: Clarity Clear; Mononuclear Cells 91 %; Nucleated Cells 361 uL (0); Polynuclear Cells 9 %
[2024-04-20 14:50] LABS: Crystals (BF) No Crystals seen
== END 2024-04-20 09:16 | disposition home or self-care (01) ==
LOC: LBN 09:15
PROVIDERS: PCP Nurse Practitioner Family; Visit Provider Student in an Organized Health Care Education/Training Program
DX: T84.84XA Pain due to internal orthopedic prosthetic devices, implants and grafts, initial encounter (principal); Z96.652 Presence of left artificial knee joint
CPT/HCPCS: 87070; 87205; 89051; 89060